=== PATIENT | male | born 1970 | race African-American/Black ===

== ENCOUNTER 2020-04-09 08:00 | Inpatient (IN) | payer OTHER ==
--- OUTSIDE RECORDS SUMMARY | 2020-04-09 08:26 | XMS ---
:1970 Author Organization [facility] Support Name Relationship Address Phone UE Unavailable Unavailable Unavailable ERNESTINA TESFAYE [address] [address] [phone] [place] [address] Re-disclosure Warning The records that you are about to access may contain information from federally- assisted alcohol or drug abuse programs. If such information is present, then the following federally mandated warning applies: This information has been disclosed to you from records protected by federal confidentiality rules (42 CFR part 2). The federal rules prohibit you from making any further disclosure of this information unless further disclosure is expressly permitted by the written consent of the person to whom it pertains or as otherwise permitted by 42 CFR part 2. A general authorization for the release of medical or other information is NOT sufficient for this purpose. The Federal rules restrict any use of the information to criminally investigate or prosecute any alcohol or drug abuse patient.The records that you are about to access may contain highly sensitive health information, the redisclosure of which is protected by Article 27-F of the [facility] Public Health law. If you continue you may haveaccess to information: Regarding HIV / AIDS; Provided by facilities licensed or operated by the [facility] Office of Mental Health; or Provided by the [facility] Office for People With Developmental Disabilities. If such information is present, then the following [facility] mandated warning applies: This information has been disclosed to you from confidential records which are protected by state law. State law prohibits you from making any further disclosure of this information without the specific written consent of the person to whom it pertains, or as otherwise permitted by law. Any unauthorized further disclosure in violation of state law may result in a fine or shelter sentence or both. A general authorization for the release of medical or other information is NOT sufficient authorization for further disclosure. Insurance Providers Payer name Policy type Policy ID Covered Covered green party's Policy P margarita / Coverage green party ID relationship to [employer] ormation type k[employer] MVP [place] [id number] [place] [id number] HMO Dental [id number] S [id number] E-0 [employer] MKD [place] [id number] S [id number] 200 Vision MKD [facility] [id number] S [id number] Options MKD Medicaid [id number] S [id number] Regular Clinic Visit [facility] Medicaid [id number] S [id number] Managed Care Problems, Conditions, and Diagnoses Code Display Name Description Problem Type Effective Dates Data Source(s) F33.8 Other recurrent Other recurrent Diagnosis 09/18/2018 [place] ([place] depressive depressive 03:40:36 PM EST Xavi disorders disorders [facility])
[2020-04-09] MEDS ORDERED: morphine CARPU-JECT 4 MG/1 ML DISP.SYRIN IVPUSH ONE (08:59)
[2020-04-09] MEDS ORDERED: FAMOTIDINE 20 MG/50 ML IVPB 20 MG/50 ML MG IVPB ONE ×2 (08:59→09:16)
[2020-04-09] MEDS ORDERED: MAG HYDROX/AL HYDROX/SIMETH -MYLANTA- ORAL SUSPENSION PO ONE (08:59)
[2020-04-09] MEDS ORDERED: LIDOCAINE VISCOUS 2% ORAL/TOP 20 ML UNIT-DOSE CUP MM ONE (08:59)
--- NOTE | 2020-04-09 09:00 | PDOC ---
History of Present Illness - General Chief Complaint: Pain Stated Complaint: ABDOMINAL PAIN Time Seen by Provider: 04/09/20 08:50 - History of Present Illness Initial Comments: Deric Ahumada is a 49 y/o male with no reported PMH presenting today with abdominal pain. States that his abdominal pain started at midnight yesterday when he was on the couch watching TV and drinking a beer. Reports that the pain is sharp and worse in the epigastric area. No pain radiation. Vomited x1 yesterday NBNB. Reports mild constipation. No diarrhea/hematochezia. No hematuria/dysuria. No fever/chills. No chest pain/shortness of breath. No leg swelling. No back pain. SurgHx: none SocHx: drinks 40 oz ETOH qd, smokes daily, snorts cocaine every few weeks Past History - Medical History Allergies/Adverse Reactions: Allergies Allergy/AdvReac Type Severity Reaction Status Date / Time No Known Allergies Allergy Verified 04/09/20 08:11 Home Medications: Ambulatory Orders NK [No Known Home Medication] 04/09/20 Anemia: No Asthma: No Cancer: No Cardiac Disorders: Yes ("irregular heart rate") CVA: No COPD: No CHF: No Dementia: No Diabetes: No GI Disorders: No Disorders: No HTN: No Hypercholesterolemia: No Liver Disease: No Seizures: No Thyroid Disease: No - Psycho-Social/Smoking History Smoking History: Never smoked Have you smoked in the past 12 months: Yes Number of Cigarettes Smoked Daily: 20 Review of Systems - Review of Systems Comments:: GENERAL/CONSTITUTIONAL: No fever or chills. No weakness._ HEAD, EYES, EARS, NOSE AND THROAT: No change in vision. No change in hearing. No sore throat._ CARDIOVASCULAR: No chest pain or shortness of breath_ RESPIRATORY: Denies cough, hemoptysis_ GASTROINTESTINAL: +epigastric abdominal pain. +nausea/vomiting x1. +con stipation. GENITOURINARY: No dysuria, frequency, or change in urination._ MUSCULOSKELETAL: No joint or muscle swelling or pain. No neck or back pain._ SKIN: No rash_ NEUROLOGIC: No headache, vertigo, loss of consciousness, or change in strength/sensation._ ENDOCRINE: No increased thirst. No abnormal weight change_ HEMATOLOGIC/LYMPHATIC: No anemia, easy bleeding, or history of blood clots._ ALLERGIC/IMMUNOLOGIC: No hives or skin allergy._ *Physical Exam - Vital Signs Last Vital Signs Temp Pulse Resp BP Pulse Ox 97.8 F 16 L 114 H 153/95 100 04/09/20 08:13 04/09/20 08:13 04/09/20 08:13 04/09/20 08:13 04/09/20 08:13 - Physical Exam GENERAL: Awake, alert, and oriented to person/place/time, in no acute distress_ HEAD: No signs of trauma, normocephalic, atraumatic _ EYES: PERRLA, EOMI, sclera anicteric, conjunctiva clear_ ENT: Hearing grossly normal, nares patent, oropharynx clear without exudates. No uvular deviation. Moist mucosa_ NECK: Normal ROM, supple, no lymphadenopathy, JVD, or masses_ LUNGS: No distress, speaks in full sentences, clear to auscultation bilaterally _ HEART: Regular rate and rhythm, normal S1 and S2, no murmurs appreciated, peripheral pulses normal and equal bilaterally._ ABDOMEN: Soft, epigastric TTP, rigid. No rebound. No masses. EXTREMITIES: Normal inspection, Normal range of motion, no edema. No clubbing or cyanosis_ NEUROLOGICAL: Cranial nerves II through XII grossly intact. Normal speech, normal gait, no focal sensorimotor deficits _ SKIN: Warm, Dry, normal turgor, no rashes or lesions noted_ ED Treatment Course - LABORATORY CBC & Chemistry Diagram: 04/09/20 09:00 04/09/20 09:00 - RADIOLOGY Radiology Studies Ordered: Category Date Time Status ABDOMEN & PELVIS CT WITH CONTR [CT] Stat CT Scan 04/09/20 08:56 Ordered CHEST X-RAY PORTABLE* [RAD] Stat Radiology 04/09/20 08:56 Ordered Medical Decision Making - Medical Decision Making 04/09/20 08:59 49M with no reported PMH here for abdominal pain over the past day and a half. +etoh, +smoking, +snorted cocaine. Vomiting x1. No fever/chills. DDx includes pancreatitis vs gastritis vs cholecystitis. -cbc, cmp -ekg, trop, cxr -CT abd iv contrast -lactic -lipase -morphine -GI cocktail 04/09/20 09:47 CXR shows free air under the diaphragm. No other acute intrathoracic pathology. 04/09/20 11:27 Call received from radiology. CT abd pelv shows pneumoperitoneum and mild free fluid in the RUQ and pelvis. No obvious source, no signs of bowel obstruction. Labs reviewed. Laboratory Last Values WBC 22.1 K/mm3 (4.0-10.0) H 04/09/20 09:00 RBC 5.68 M/mm3 (4.00-5.60) H 04/09/20 09:00 Hgb 15.6 GM/dL (11.7-16.9) 04/09/20 09:00 Hct 47.1 % (35.4-49) 04/09/20 09:00 MCV 82.9 fl (80-96) 04/09/20 09:00 MCH 27.4 pg (25.7-33.7) 04/09/20 09:00 MCHC 33.1 g/dl (32.0-35.9) 04/09/20 09:00 RDW 15.2 % (11.9-15.9) 04/09/20 09:00 Plt Count 373 K/MM3 (134-434) 04/09/20 09:00 MPV 7.3 fl (7.5-11.1) L 04/09/20 09:00 Absolute Neuts (auto) 19.8 K/mm3 (1.5-8.0) H 04/09/20 09:00 Neutrophils % 89.8 % (42.8-82.8) H 04/09/20 09:00 Lymphocytes % 4.7 % (8-40) L 04/09/20 09:00 Monocytes % 5.2 % (3.8-10.2) 04/09/20 09:00 Eosinophils % 0.1 % (0-4.5) 04/09/20 09:00 Basophils % 0.2 % (0-2.0) 04/09/20 09:00 Nucleated RBC % 0 % (0-0) 04/09/20 09:00 PT with INR 19.20 SEC (9.7-13.0) H 04/09/20 09:00 INR 1.62 (0.83-1.09) H 04/09/20 09:00 PTT (Actin FS) 35.1 SECONDS (25.2-36.5) 04/09/20 09:00 Sodium 134 mmol/L (136-145) L 04/09/20 09:00 Potassium 4.5 mmol/L (3.5-5.1) 04/09/20 09:00 Chloride 102 mmol/L (98-107) 04/09/20 09:00 Carbon Dioxide 25 mmol/L (21-32) 04/09/20 09:00 Anion Gap 8 MMOL/L (8-16) 04/09/20 09:00 BUN 12.6 mg/dL (7-18) 04/09/20 09:00 Creatinine 0.9 mg/dL (0.55-1.3) 04/09/20 09:00 Est GFR (CKD-EPI)AfAm 114.21 04/09/20 09:00 Est GFR (CKD-EPI)NonAf 98.54 04/09/20 09:00 Random Glucose 114 mg/dL (74-106) H 04/09/20 09:00 Lactic Acid 1.2 mmol/L (0.4-2.0) 04/09/20 09:00 Calcium 9.7 mg/dL (8.5-10.1) 04/09/20 09:00 Total Bilirubin 0.5 mg/dL (0.2-1) 04/09/20 09:00 AST 13 U/L (15-37) L 04/09/20 09:00 ALT 14 U/L (13-61) 04/09/20 09:00 Alkaline Phosphatase 90 U/L (45-117) 04/09/20 09:00 Creatine Kinase 95 U/L (26-308) 04/09/20 09:00 Troponin I < 0.02 ng/ml (0.00-0.05) 04/09/20 09:00 Total Protein 6.7 g/dl (6.4-8.2) 04/09/20 09:00 Albumin 3.4 g/dl (3.4-5.0) 04/09/20 09:00 Lipase 89 U/L (73-393) 04/09/20 09:00 04/09/20 11:35 Case d/w Dr. Rodriguez. CT abd shows small bowel obstruction vs ileus. 04/09/20 11:42 Case d/w Dr. Young who will take the pt to the OR today. 04/09/20 11:[address] May. Voice mailbox is full, no answering service available. Will admit to hospitalist. 04/09/20 11:57 Case d/w Dr. Tadeo who accepts the patient for admission. Discharge - Discharge Information Problems reviewed: Yes Clinical Impression/Diagnosis: Pneumoperitoneum Condition: Guarded - Admission Yes - Follow up/Referral - Patient Discharge Instructions - Post Discharge Activity
[2020-04-09] MEDS ORDERED: LACTATED RINGERS SOLUTION 1000 ML INFUS.BAG IV ONE (09:06)
[2020-04-09] MEDS ORDERED: morphine SULFATE 4 MG/ML VIAL ONE (09:15)
[2020-04-09] MEDS ORDERED: LIDOCAINE VISCOUS 2% ORAL/TOP 20 ML UNIT-DOSE CUP ONE (09:15)
[2020-04-09] MEDS ORDERED: MAG HYDROX/AL HYDROX/SIMETH 30 ML UNIT-DOSE CUP ONE (09:16)
[2020-04-09 09:35] LABS: INR 1.62 (0.83-1.09); PROTHROMBIN TIME (PATIENT) 19.2 SEC (9.7-13.0)
[2020-04-09 09:38] LABS: ACTIVATED PTT 35.1 SECONDS (25.2-36.5)
[2020-04-09 09:45] LABS: BASO % 0.2 % (0-2.0); EOS % 0.1 % (0-4.5); HEMATOCRIT 47.1 % (35.4-49); HEMOGLOBIN 15.6 GM/dL (11.7-16.9); LYMPH % 4.7 % (8-40); MCH 27.4 pg (25.7-33.7); MCHC 33.1 g/dl (32.0-35.9); MEAN CELL VOLUME 82.9 fl (80-96); MEAN PLT VOLUME 7.3 fl (7.5-11.1); MONO % 5.2 % (3.8-10.2); NEUT % 89.8 % (42.8-82.8); PLATELET COUNT 373 K/MM3 (134-434); RBC 5.68 M/mm3 (4.00-5.60); RDW 15.2 % (11.9-15.9); WHITE BLOOD COUNT 22.1 K/mm3 (4.0-10.0)
[2020-04-09] MEDS ORDERED: PIPERACILLIN/TAZOB 3.375 GM 3.375 GM in DEXTROSE 5%-WATER - 50 ML IVPB ONE (09:48)
[2020-04-09 10:06] LABS: ALBUMIN 3.4 g/dl (3.4-5.0); ALK PHOS 90 U/L (45-117); ANION GAP 8 MMOL/L (8-16); BILIRUBIN,TOTAL 0.5 mg/dL (0.2-1); BLOOD UREA NITROGEN 12.6 mg/dL (7-18); CALCIUM 9.7 mg/dL (8.5-10.1); CHLORIDE 102 mmol/L (98-107); CO2 25 mmol/L (21-32); CREATININE 0.9 mg/dL (0.55-1.3); GLUCOSE,RANDOM 114 mg/dL (74-106); LIPASE 89 U/L (73-393); POTASSIUM 4.5 mmol/L (3.5-5.1); SGOT/AST 13 U/L (15-37); SGPT/ALT 14 U/L (13-61); SODIUM 134 mmol/L (136-145); TOT PROT 6.7 g/dl (6.4-8.2)
[2020-04-09] MEDS ORDERED: PIPERACILLIN/TAZOB 3.375 GM 3.375 GM/50 ML BAG IVPB ONE (11:35)
--- NOTE | 2020-04-09 11:45 | PDOC ---
Documentation entered by Mckenna Veliz SCRIBE, acting as scribe for Kimberly Camarena MD. Kimberly Camarena MD: This documentation has been prepared by the scribe, Mckenna Veliz SCRIBE, under my direction and personally reviewed by me in its entirety. I confirm that the documentation accurately reflects all work, treatment, procedures, and medical decision making performed by me. Attending Attestation - Resident Resident Name: John Ojeda - ED Attending Attestation I have performed the following: I have examined & evaluated the patient, The case was reviewed & discussed with the resident, I agree w/resident's findings & plan, Exceptions are as noted - HPI HPI: 49 year old male history of EtOH use presents with epigastric abdominal pain. He states it started last night, kept him awake all night. He states he was drinking a beer when it started. No known prior history of GERD. Denies prior symptoms of heartburn or pain with eating/drinking. No prior similar symptoms. +N/V. No diarrhea. Denies f/c. Patient denies: Allergies: NKDA - Physicial Exam PE: GENERAL: Awake, alert, and fully oriented. Appears uncomfortable. HEAD: No signs of trauma EYES: PERRLA, EOMI, sclera anicteric, conjunctiva clear ENT: Auricles normal inspection, hearing grossly normal, nares patent, oropharynx clear without exudates. Dry mucosa NECK: Normal ROM, supple, no lymphadenopathy, JVD, or masses LUNGS: Breath sounds equal, clear to auscultation bilaterally. No wheezes, and no crackles HEART: Regular rate and rhythm, normal S1 and S2, no murmurs, rubs or gallops ABDOMEN: Firm, diffusely tender, +hyperactive bowel sounds. +Guarding, +rebound. No masses EXTREMITIES: Normal range of motion, no edema. No clubbing or cyanosis. No cords, erythema, or tenderness NEUROLOGICAL: Cranial nerves II through XII grossly intact. Normal speech, normal gait SKIN: Warm, Dry, normal turgor, no rashes or lesions noted. - Medical Decision Making 04/09/20 11:42 Late entry. Patient presented with epigastric abd pain that started while drinking a beer. Abd exam significant for diffuse tenderness with peritoneal signs. Found to have free air on CXR. Treated with zosyn for perf, sent to CT for emergent noncontrast scan to further evaluate. CT showed pneumoperitoneum, poss SBO vs ileus as well. Surgery consulted. Discharge - Discharge Information Problems reviewed: Yes Clinical Impression/Diagnosis: Pneumoperitoneum Condition: Guarded - Follow up/Referral Referrals: Raheem May MD [Primary Care Provider] - - Patient Discharge Instructions - Post Discharge Activity
--- OUTSIDE RECORDS SUMMARY | 2020-04-09 12:10 | XMS ---
:1970 Author Organization [facility] Support Name Relationship Address Phone UE, UNEMPLOYED Unavailable Unavailable Unavailable UE Unavailable Unavailable Unavailable ERNESTINA TESFAYE [address] [place] [address] Re-disclosure Warning The records that you are [...] is protected by Article 27-F of the [facility] Public Health law. If you continue you may haveaccess to information: Regarding HIV / AIDS; Provided by facilities licensed or operated by the [facility] Office of Mental Health; or Provided by the [facility] Office for People With Developmental Disabilities. If such information is present, then the following [facility] mandated warning applies: This information has [...] law may result in a fine or custodial sentence or both. A general authorization for the release of medical or other information is NOT sufficient authorization for further disclosure. Insurance Providers Payer name Policy type Policy ID Covered Covered republican's Policy P margarita / Coverage republican ID relationship to [employer] Inf ormation type k[employer]ball MVP MEDICAID [id number] SP [id number] HMO Dental [id number] S [id number] E-0 [employer] MKD [place] [id number] S [id number] 200 Vision MKD [facility] [id number] S [id number] Options MKD Medicaid [id number] [id number] S [id number] Regular Clinic Visit [facility] Medicaid [id number] S [id number] Managed Care Problems, Conditions, and Diagnoses Code Display Name Description Problem Type Effective Dates Data Source(s) F33.8 Other recurrent Other recurrent Diagnosis 09/18/2018 [place] ([place] depressive depressive 03:40:36 PM EST Xavi disorders disorders [facility])
--- NOTE | 2020-04-09 12:24 | HP ---
CHIEF COMPLAINT: Abd pain/distention PCP: Dr. Raheem May HISTORY OF PRESENT ILLNESS: 49yo M with substance use who presents today after 2 days of abdominal pain described as generalized nonremitting pain. He reports 2 days prior to presentation he had sudden onset of distention and abdominal pain which worsened over the last two days. At the time he had one beer and was smoking marijuana, but the night prior he had used cocaine (snorting). He occasionally uses cocaine and his last use was at that time. Patient also endorses having diaphoresis last night, but did not have any rigors or chills and he reports one episode of NB/NB emesis. Denies any known fevers, cough, SOB, chest pain, palpitations, nausea, current vomiting, diarrhea/constipation, dysuria, polyuria. PAST MEDICAL HISTORY: None Known PAST SURGICAL HISTORY: Vasectomy Social History: Smoking: with marijuana use Alcohol: 1-2 beers /wk Drugs: Marijuana use every other day, cocaine use occasionally FamHx: Noncontributory Allergies No Known Allergies Allergy (Verified 04/09/20 08:11) HOME MEDICATIONS: Home Medications Medication Instructions Recorded (None) 0 08/14/11 REVIEW OF SYSTEMS As per [facility] PHYSICAL EXAMINATION Vital Signs - 24 hr 04/09/20 04/09/20 08:13 12:06 Temperature 97.8 F Pulse Rate 114 H Pulse Rate [ 84 Right] Respiratory 16 18 Rate Blood Pressure 153/95 Blood Pressure 151/84 [Left Arm] O2 Sat by Pulse 100 100 Oximetry (%) GENERAL: Awake, alert, and fully oriented, in no acute distress. HEENT: NC/AT, MARK, L eye amblyopia, EOMI without nystagmus, MMM NECK: No JVD. LUNGS: Respiratory splinting, CTA bilaterally. No wheezes, and no crackles. No accessory muscle use. On RA HEART: Tachycardic with regular rhythm, normal S1 and S2 without murmur ABDOMEN: Firm, nondistended, minimal generalized tenderness, - BS, + guarding, no rebound, no masses appreciated, no hepatomegaly. EXTREMITIES: 2+ pulses, warm, well-perfused. No calf tenderness. No peripheral edema. NEUROLOGICAL: echocardiography radiology technologist II-XII intact. Nonfocal exam Normal speech. PSYCHIATRIC: Cooperative. Good eye contact. Appropriate mood and affect. SKIN: Warm, dry,no rashes or lesions noted Laboratory Results - last 24 hr 04/09/20 04/09/20 04/09/20 09:00 09:00 09:00 WBC 22.1 H RBC 5.68 H Hgb 15.6 Hct 47.1 MCV 82.9 MCH 27.4 MCHC 33.1 RDW 15.2 Plt Count 373 MPV 7.3 L Absolute Neuts (auto) 19.8 H Neutrophils % 89.8 H Lymphocytes % 4.7 L Monocytes % 5.2 Eosinophils % 0.1 Basophils % 0.2 Nucleated RBC % 0 PT with INR 19.20 H INR 1.62 H PTT (Actin FS) 35.1 Sodium 134 L Potassium 4.5 Chloride 102 Carbon Dioxide 25 Anion Gap 8 BUN 12.6 Creatinine 0.9 Est GFR (CKD-EPI)AfAm 114.21 Est GFR (CKD-EPI)NonAf 98.54 Random Glucose 114 H Lactic Acid Calcium 9.7 Total Bilirubin 0.5 AST 13 L ALT 14 Alkaline Phosphatase 90 Creatine Kinase 95 Troponin I < 0.02 Total Protein 6.7 Albumin 3.4 Lipase 89 04/09/20 09:00 WBC RBC Hgb Hct MCV MCH MCHC RDW Plt Count MPV Absolute Neuts (auto) Neutrophils % Lymphocytes % Monocytes % Eosinophils % Basophils % Nucleated RBC % PT with INR INR PTT (Actin FS) Sodium Potassium Chloride Carbon Dioxide Anion Gap BUN Creatinine Est GFR (CKD-EPI)AfAm Est GFR (CKD-EPI)NonAf Random Glucose Lactic Acid 1.2 Calcium Total Bilirubin AST ALT Alkaline Phosphatase Creatine Kinase Troponin I Total Protein Albumin Lipase ASSESSMENT/PLAN: Bowel Perforation likely 2/2 cocaine mesenteric ischemia Leukocytosis Polysubstance Use --General surgery consulted in ED: to be taken to the OR shortly --Due to emergent surgery patient is to go to OR regardless --Based on pt's history he is low risk patient for mod risk surgery (ex-lap) --Zosyn 3.375gm q8h IV for gram negative and anaerobic coverage --LR @100cc/hr --Strict NPO --Tylenol and Morphine PRN --Rest per surgical recommendations --Will need incentive spirometer after OR procedure --Gilliland insertion due minimal distention and perioperative use --UA and UTox to be collected --Counselling on cessation of cocaine and marijuana use --Monitor for any withdrawal signs (low risk considering single use occasionally) DVT PPX - SCDs Dispo: M/S pending teto-operative course Preston Tadeo DO - IM Family Medical History Family History: As Documented Visit type - Emergency Visit Emergency Visit: Yes ED Registration Date: 04/09/20 Care time: The patient presented to the Emergency Department on the above date and was hospitalized for further evaluation of their emergent condition. - New Patient This patient is new to me today: Yes Date on this admission: 04/09/20 - Critical Care Critical Care patient: No
[2020-04-09] MEDS ORDERED: morphine SULFATE 4 MG/ML VIAL IVPUSH PRN (12:26)
[2020-04-09] MEDS ORDERED: ACETAMINOPHEN 1000 MG/100 ML VIAL (NON FORMULARY) IVPB PRN (12:26)
[2020-04-09] MEDS ORDERED: LACTATED RINGERS SOLUTION 1,000 ML/1,000 ML INFUS.BAG IV SCH (12:30)
[2020-04-09 13:14] LABS: ANISOCYTOSIS 0; MACROCYTOSIS 0; PLATELET ESTIMATE NORMAL
[2020-04-09 13:21] LABS: METHADONE, UR NEGATIVE ng/ml (CUTOFF=300); PHENCYCLIDINE,URINE NEGATIVE ng/ml (CUTOFF=25); URINE AMPHETAMINES NEGATIVE ng/ml (CUTOFF=500); URINE BARBITURATES NEGATIVE ng/ml (CUTOFF=200); URINE BENZODIAZEPINES NEGATIVE ng/ml (CUTOFF=200)
[2020-04-09 13:24] LABS: COCAINE, UR POSITIVE ng/ml (CUTOFF=300); OPIATES, URI POSITIVE ng/ml (CUTOFF=300)
[2020-04-09 13:41] LABS: URINE APPEARANCE CLEAR; URINE BILIRUBIN NEGATIVE (NEGATIVE); URINE COLOR YELLOW; URINE GLUCOSE (UA) NEGATIVE (NEGATIVE); URINE KETONE NEGATIVE (NEGATIVE); URINE LEUK ESTERASE NEGATIVE (NEGATIVE); URINE NITRITE NEGATIVE (NEGATIVE); URINE PROTEIN TRACE (NEGATIVE); URINE UROBILINOGEN 0.2 mg/dL (0.2-1.0)
--- NOTE | 2020-04-09 13:57 | PN ---
Progress Note (short form) - Note Progress Note: surgery 49m with perforated viscous and ascites on ct. Has tachycardia and leukocytosis with a shift. suspect PUD. Rapid covid test done and covid negative. Emergency surgery has been booked. Awaiting OR availabity. Currently emergent case scheduled in front and no second team available per nursing die cast supervisor.
[2020-04-09] MEDS ORDERED: ONDANSETRON 4 MG/2 ML VIAL IVPUSH PRN ×2 (14:40→18:50)
[2020-04-09] MEDS ORDERED: PROMETHAZINE HCL 25 MG/1 ML VIAL IVPUSH PRN (14:40)
[2020-04-09] MEDS ORDERED: LACTATED RINGERS SOLUTION 1,000 ML IV SCH (14:45)
[2020-04-09] MEDS ORDERED: fentaNYL CITRATE 250 MCG/5 ML VIAL ONE (16:25)
[2020-04-09] MEDS ORDERED: ONDANSETRON 4 MG/2 ML VIAL ONE (16:25)
[2020-04-09] MEDS ORDERED: MIDAZOLAM HCL 2 MG/2 ML SINGLE DOSE VIAL ONE (16:25)
[2020-04-09] MEDS ORDERED: DEXAMETHASONE SOD PHOSPHATE 4 MG/1 ML VIAL ONE (16:25)
[2020-04-09] MEDS ORDERED: PROPOFOL 20 ML ONE ×2 (16:25→18:30)
[2020-04-09] MEDS ORDERED: ROCURONIUM BROMIDE 50 MG/5 ML SYRINGE ONE (16:25)
[2020-04-09] MEDS ORDERED: LIDOCAINE HCL/PF 2% SDV 5ML VIAL ONE (16:25)
[2020-04-09] MEDS ORDERED: PIPERACILLIN/TAZOB 3.375 GM 3.375 GM in DEXTROSE 5%-WATER - 50 ML IVPB SCH (18:00)
[2020-04-09] MEDS ORDERED: BUPIVACAINE HCL 50 ML ONE (18:15)
[2020-04-09] MEDS ORDERED: NEOSTIGMINE METHYLSULFATE 0.5 MG/1 ML - 10 ML MDV ONE (18:21)
[2020-04-09] MEDS ORDERED: GLYCOPYRROLATE 0.2 MG/1 ML VIAL ONE (18:21)
[2020-04-09] MEDS ORDERED: BUPIVACAINE HCL/PF 0.5% (5 MG/ML) 30 ML VIAL IJ ONE (18:31)
[2020-04-09] MEDS ORDERED: morphine SULFATE 4 MG/ML VIAL IVPB PRN (18:50)
--- NOTE | 2020-04-09 18:59 | OP ---
Operative Note - Note: Operative Date: 04/09/20 Pre-Operative Diagnosis: perforated viscous Operation: exploratory laparotomy, vern patch procedure of perforated ulcer, drainage of ascites, lavage Findings: perforated ulcer at anterior pylorus/duodenal bulb, ascites with exudate Post-Operative Diagnosis: Same as Pre-op Surgeon: Preston Young Anesthesiologist/CORK PAINTER AND GRADER: Dusty Wright Anesthesia: General Specimens Removed: peritoneal fluid for culture and grahm stain Estimated Blood Loss (mls): 50 Drains & Tubes with Location: rajiv abd Operative Report Dictated: Yes
[2020-04-09] MEDS ORDERED: FLUCONAZOLE 200 MG/D5W 100 ML IVPB SCH (19:00)
[2020-04-09] MEDS ORDERED: D5-1/2NS+20 MEQ KCL - 20 MEQ/1,000 ML INFUS.BAG IV SCH (19:00)
[2020-04-09] MEDS: ACETAMINOPHEN 1000 MG/100 ML VIAL (NON FORMULARY) IVPB PRN (19:10)
[2020-04-09] MEDS ORDERED: ACETAMINOPHEN INJECTION 100 ML IVPB ONE (19:17)
[2020-04-09] MEDS: PANTOPRAZOLE SODIUM 80 MG in SODIUM CHLORIDE 100 ML IVPB SCH (19:40)
--- NOTE | 2020-04-09 21:57 | CONSULT ---
Consult Consult Specialty:: PULM/CCM Referred by:: Dr. Tadeo Reason for Consultation:: Post op management - History of Present Illness Chief Complaint: abdominal pain History of Present Illness: 49yo M with substance use who presents to the hospital on 04/09 after 2 days of abdominal pain described as generalized nonremitting pain. He reports 2 days prior to presentation he had sudden onset of distention and abdominal pain which worsened over the last two days. At the time he had one beer and was smoking marijuana, but the night prior he had used cocaine (snorting). Patient also endorses having diaphoresis last night, but did not have any rigors or chills and he reports one episode of NB/NB emesis. Now admitted to ICU s/p OR with Dr. Christie for exploratory laparotomy, vern patch procedure of perforated ulcer, drainage of ascites, lavage. - History Source History Provided By: Patient Limitations to Obtaining History: No Limitations - Alcohol/Substance Use Hx Alcohol Use: Yes (reformed for 2 yrs) History of Substance Use: reports: Cocaine, Marijuana - Smoking History Smoking history: Never smoked Have you smoked in the past 12 months: Yes Aproximately how many cigarettes per day: 20 Home Medications - Allergies Allergies/Adverse Reactions: Allergies Allergy/AdvReac Type Severity Reaction Status Date / Time No Known Allergies Allergy Verified 04/09/20 08:11 - Home Medications Home Medications: Ambulatory Orders NK [No Known Home Medication] 04/09/20 Family Medical History Family History: Denies Review of Systems - Review of Systems Constitutional: reports: No Symptoms Eyes: reports: No Symptoms HENT: reports: No Symptoms Neck: reports: No Symptoms Cardiovascular: reports: No Symptoms Respiratory: reports: No Symptoms Gastrointestinal: reports: Abdominal Pain Musculoskeletal: reports: No Symptoms Integumentary: reports: No Symptoms Neurological: reports: No Symptoms Endocrine: reports: No Symptoms Hematology/Lymphatic: reports: No Symptoms Psychiatric: reports: No Symptoms Physical Exam Vital Signs: Vital Signs Temperature 98.9 F 04/09/20 20:25 Pulse Rate 82 04/09/20 20:25 Respiratory Rate 16 04/09/20 20:25 Blood Pressure 122/74 04/09/20 20:25 O2 Sat by Pulse Oximetry (%) 100 04/09/20 20:25 Constitutional: Yes: Well Nourished, No Distress, Calm Eyes: Yes: WNL, Conjunctiva Clear, EOM Intact HENT: Yes: WNL, Atraumatic, Normocephalic Neck: Yes: WNL, Supple, Trachea Midline Cardiovascular: Yes: WNL, Regular Rate and Rhythm, S1, S2 Respiratory: Yes: WNL, Regular, CTA Bilaterally Gastrointestinal: Yes: Tenderness, Other (absent BS) ...Rectal Exam: Yes: Deferred Renal/: Yes: WNL (Gilliland present), Other Breast(s): Yes: WNL Musculoskeletal: Yes: WNL Extremities: Yes: WNL Edema: No Integumentary: Yes: WNL Wound/Incision: Yes: Clean/Dry, Well Approximated, [place] Intact Neurological: Yes: WNL, Alert, Oriented ...Motor Strength: WNL Psychiatric: Yes: WNL, Alert, Oriented Labs: CBC, BMP 04/09/20 09:00 04/09/20 09:00 Imaging - Results Cat Scan: Report Reviewed (04/[address] Moderate to large pneumoperitoneum. A small to moderate amount of free fluid is noted within the pelvis and upper abdomen. Nonspecific fluid-filled small bowel dilatation is seen which could be on the basis of an ileus versus distal small bowel obstruction. Mild to moderate fluid-filled gastric distention is also seen. Mild nonspecific left hydronephrosis. Follow-up evaluation is suggested.) Problem List - Problems (1) Pneumoperitoneum Code(s): K66.8 - OTHER SPECIFIED DISORDERS OF PERITONEUM (2) Cocaine abuse Code(s): F14.10 - COCAINE ABUSE, UNCOMPLICATED (3) Hydronephrosis Code(s): N13.30 - UNSPECIFIED HYDRONEPHROSIS (4) Leukocytosis Code(s): D72.829 - ELEVATED WHITE BLOOD CELL COUNT, UNSPECIFIED (5) Leukocytosis Code(s): D72.829 - ELEVATED WHITE BLOOD CELL COUNT, UNSPECIFIED (6) Marijuana abuse Code(s): F12.10 - CANNABIS ABUSE, UNCOMPLICATED (7) Opiate dependence Code(s): F11.20 - OPIOID DEPENDENCE, UNCOMPLICATED Assessment/Plan ASSESSMENT/PLAN: Bowel Perforation likely 2/2 cocaine mesenteric ischemia Leukocytosis Polysubstance Use S/p OR -Tylenol and Morphine PRN -Zosyn 3.375gm and Flucanazole -Pantoprazole for PUD ppx -Monitor for any withdrawal signs -DVT ppx SCDs, can start Lovenox in am as per surgery -Do not remove NGT x 1 week -Strict NPO -Strict I/O -Trend and replete lytes -IVF -Keep hgb>7, Plt>10 -Incentive spirometer Dispo: Patient full code Lian Desiree ACNp [id number]
[2020-04-09] MEDS: CHLORHEXIDINE GLUCONATE 4% CLEANSER FOR DECOLONIZATION TP SCH (22:33)
[2020-04-09] MEDS: MUPIROCIN 2% TOPICAL OINTMENT FOR DECOLONIZATION NS SCH (22:33)
[2020-04-10] MEDS ORDERED: PIPERACILLIN/TAZOBACTAM 3.375 GM VIAL IVPB ONE ×3 (01:15→18:09)
[2020-04-10] MEDS ORDERED: DEXTROSE 5%-WATER - 50 ML IVPB ONE ×3 (01:16→18:09)
[2020-04-10] MEDS: PIPERACILLIN/TAZOB 3.375 GM 3.375 GM in DEXTROSE 5%-WATER - 50 ML IVPB SCH ×3 (01:58→18:20)
[2020-04-10] MEDS: PANTOPRAZOLE SODIUM 80 MG in SODIUM CHLORIDE 100 ML IVPB SCH ×2 (04:00→15:15)
[2020-04-10] MEDS: ACETAMINOPHEN 1000 MG/100 ML VIAL (NON FORMULARY) IVPB PRN (07:35)
--- NOTE | 2020-04-10 07:54 | PN ---
Progress Note (short form) - Note Progress Note: GENERAL SURGERY POD #1 No acute events per RN notes. Alert. Sitting up in bed. Wearing NC at 3L. C/o incisional tenderness. Adequate pain control w/ medications ordered. Denies n/v/f/c, CP, palpitations, SOB or LEAL. Last Vital Signs Temp Pulse Resp BP Pulse Ox 98.2 F 78 18 138/79 99 04/10/20 06:00 04/10/20 06:00 04/10/20 06:00 04/10/20 06:00 04/10/20 06:00 Output 04/09/20 04/10/20 23:00 06:00 RLQ JOSE 15 10 Pelletier 700 700 GEN: nad PULM: unlabored respirations on room air COR: rrr ABD: midline incision w/ héctor intact. (covered w/ dermabond) : pelletier to gravity (clear) LE: SCDs in place. All compartments soft/supple/nt A/P: 49 yo male POD #1 s/p exploratory laparotomy, vern patch procedure of perforated ulcer, drainage of ascites, lavage -Strict NPO -NGT to remain for 1 week -JOSE to remain for 1 week -Protonix drip -Cont Diflucan -Cont Zosyn IVPB -DVT PPx -DC pelletier and begin trial of void Above plan discussed w/ Dr. Young and agrees. Problem List - Problems (1) Perforated chronic gastric ulcer Code(s): K25.5 - CHRONIC OR UNSPECIFIED GASTRIC ULCER WITH PERFORATION (2) Cocaine abuse Code(s): F14.10 - COCAINE ABUSE, UNCOMPLICATED (3) Marijuana abuse Code(s): F12.10 - CANNABIS ABUSE, UNCOMPLICATED
[2020-04-10 08:01] LABS: HEMATOCRIT 38.6 % (35.4-49); HEMOGLOBIN 12.8 GM/dL (11.7-16.9); MCHC 33.3 g/dl (32.0-35.9); MEAN CELL VOLUME 84.1 fl (80-96); MEAN PLT VOLUME 7.5 fl (7.5-11.1); PLATELET COUNT 284 K/MM3 (134-434); RBC 4.59 M/mm3 (4.00-5.60); WHITE BLOOD COUNT 20.3 K/mm3 (4.0-10.0)
--- NOTE | 2020-04-10 08:30 | CONS ---
DATE OF CONSULTATION: 04/09/2020 REASON FOR CONSULTATION: Perforated viscus. This is an emergency room consultation as requested by the emergency room physician. BRIEF HISTORY: This is a 49-year-old male who presented to [facility] with abdominal pain. He was noted to have tachycardia, leukocytosis and an x-ray suggestive of free air. He went for a CAT scan of his abdomen and pelvis which confirmed free air as well as ascites. There was no obvious source of the perforation elucidated on the CAT scan. The patient was admitted to the hospital. He got a dose of Zosyn antibiotic. At my request a rapid COVID test was sent and plans for surgery to be made once the results were available. PAST MEDICAL HISTORY: Negative except for substance abuse. PAST SURGICAL HISTORY: Includes a vasectomy. SOCIAL HISTORY: Positive for cocaine, opiates, marijuana and alcohol. FAMILY HISTORY: Noncontributory. ALLERGIES: He has no known drug allergies. MEDICATIONS: He takes no prescribed medications. REVIEW OF SYSTEMS: General: Denies fatigue. Cardiac: Denies chest pain. Respiratory: Denies shortness of breath. Gastrointestinal: Admits to abdominal pain. Denies nausea. Denies vomiting. Denies diarrhea. Denies blood in his stool. Genitourinary: Denies dysuria. Musculoskeletal: Denies joint pain. Psychiatric: Denies hearing voices. PHYSICAL EXAMINATION: General: This is a well-developed, well-nourished 49-year-old male in no distress. Vital Signs: He is afebrile. His heart rate is 114. His blood pressure is 140/98. His respiratory rate is 18. He is saturating at 96%. HEENT: His head is normocephalic. His sclerae are anicteric. Neck: Supple. Chest: Clear. Abdomen: Distended. It has 4-quadrant peritonitis. There is a ventral hernia in the central portion of his abdomen which is reducible. Extremities: No edema. On review of his laboratories white blood cell count is 22.1 with a left shift. His chemistries show hyponatremia with sodium of 134. His lactic acid is normal at 1.2. His urinalysis is unremarkable. His toxicology report is positive for opiates, cocaine and marijuana. His COVID test is negative. On review of his imaging he has a chest x-ray which shows pneumoperitoneum. He has a CAT scan of his abdomen and pelvis which is as stated in the HPI. In addition, there is possibility of ileus versus distal small-bowel obstruction and a mild left hydronephrosis. ASSESSMENT: This is a 49-year-old male who presented to [facility] with abdominal pain, perforated viscus, sepsis and 4-quadrant peritonitis. Clinically this is perforated viscus. I suspect this is likely peptic ulcer disease. Differential would be colonic perforation such as diverticulitis and less likely a small-bowel perforation. Patient has been given Zosyn antibiotic. COVID test is negative which allows us to use the normal operating theater at the hospital and also allows us to expect what type of respiratory and thromboembolic complications the patient might have intraoperatively or postoperatively. PLAN: Proceed with emergency laparotomy. This was made once the COVID test was available. Now that an operating room is available for surgery, will proceed. Plan is for a laparotomy and further treatment based on intraoperative findings. The risks and benefits of surgery have been explained to patient in detail. These are including but not limited to the possibility of injury to viscera or bladder, the possibility of requiring a colostomy, possibility of a bowel resection, the possibility of injury to the bile duct, the possibility of developing a leak, the possibility that he will require nasogastric tube for 1 week, the possibility he may require TPN plus a multitude of medical risks including but not limited to cardiac, neurologic, pulmonary and vascular complications, even . Patient understands these risks and he agrees to surgery. He also understands that even though he has tested negative for COVID that this could be a false-negative test and that if he does indeed have the virus he is at increased risk of respiratory failure and thromboembolic events and . Patient and his understand. They wish to proceed with surgery. He also understands that there is an option for medical management with antibiotics and nasogastric tube. However, they wish to proceed with the standard of care surgery which is more likely to be successful. DO ZVE SANTOS/[id number]
--- NOTE | 2020-04-10 08:31 | PN ---
Progress Note, Physician Chief Complaint: s/pp ex lap for perforated ulcer History of Present Illness: under general anesthesia post op day one - Current Medication List Current Medications: Active Medications Acetaminophen (Ofirmev Injection -) 1,000 mg IVPB Q6H PRN PRN Reason: PAIN LEVEL 4 - 6 Stop: 04/10/20 12:26 Last Admin: 04/10/20 07:35 Dose: 1,000 mg Documented by: Chlorhexidine Gluconate (Hibiclens For Decolonization -) 1 applic TP HS [facility] Last Admin: 04/09/20 22:33 Dose: 1 applic Documented by: Enoxaparin Sodium (Lovenox -) 40 mg SQ DAILY [facility] Potassium Chloride/Dextrose/Sod Cl (D5-1/2ns+20 Meq Kcl -) 20 meq in 1,000 mls @ 100 mls/hr IV ASDIR [facility] Last Admin: 04/09/20 20:06 Dose: 100 mls/hr Documented by: Pantoprazole Sodium 80 mg/ (Sodium Chloride) 100 mls @ 10 mls/hr IVPB Q10H [facility] Stop: 04/12/20 18:54 Last Admin: 04/10/20 04:00 Dose: 10 mls/hr Documented by: Piperacillin Sod/Tazobactam (Sod 3.375 gm/ Dextrose) 50 mls @ 100 mls/hr IVPB Q8H-IV ERIKA; Protocol Stop: 04/10/20 10:29 Last Admin: 04/10/20 01:58 Dose: 100 mls/hr Documented by: Piperacillin Sod/Tazobactam (Sod 3.375 gm/ Dextrose) 50 mls @ 100 mls/hr IVPB Q8H-IV ERIKA; Protocol Fluconazole (Diflucan 200 Mg/Ns Premixed Ivpb -) 100 mls @ 100 mls/hr IVPB DAILY [facility] Morphine Sulfate (Morphine Sulfate) 8 mg IVPB Q3H PRN PRN Reason: PAIN LEVEL 7 - 10 Mupirocin (Bactroban Ointment (For Decolonization) -) 1 applic NS BID [facility] Stop: 04/14/20 21:59 Last Admin: 04/09/20 22:33 Dose: 1 applic Documented by: Ondansetron HCl (Zofran Injection) 4 mg IVPUSH Q6H PRN PRN Reason: NAUSEA - Objective Vital Signs: Vital Signs Temperature 98.2 F 04/10/20 06:00 Pulse Rate 78 04/10/20 06:00 Respiratory Rate 18 04/10/20 06:00 Blood Pressure 138/79 04/10/20 06:00 O2 Sat by Pulse Oximetry (%) 99 04/10/20 06:00 Constitutional: Yes: Well Nourished Cardiovascular: Yes: WNL Respiratory: Yes: WNL Gastrointestinal: Yes: Tenderness (NGT in place) Labs: CBC, BMP 04/10/20 05:25 INR, PTT INR 1.62 (0.83-1.09) H 04/09/20 09:00 Assessment/Plan Doing well, pain controlled, no anesthetic complications, dept of anesthesiology will sign off care at this time
[2020-04-10 09:01] LABS: POTASSIUM 4.5 mmol/L (3.5-5.1)
[2020-04-10 09:13] LABS: ALBUMIN 2.3 g/dl (3.4-5.0); BILIRUBIN,TOTAL 0.6 mg/dL (0.2-1); BLOOD UREA NITROGEN 13.3 mg/dL (7-18); CALCIUM 8.3 mg/dL (8.5-10.1); CREATININE 0.9 mg/dL (0.55-1.3); MAGNESIUM 2.2 mg/dL (1.8-2.4); PHOSPHOROUS 4.1 mg/dL (2.5-4.9); TOT PROT 5.1 g/dl (6.4-8.2)
--- NOTE | 2020-04-10 09:31 | OP ---
DATE OF OPERATION: 04/09/2020 PREOPERATIVE DIAGNOSIS: Perforated viscus. POSTOPERATIVE DIAGNOSIS: Perforated viscus. PROCEDURE: Exploratory laparotomy, Rolando patch procedure of perforated peptic ulcer, drainage of ascites, lavage. SURGEON: Preston Young DO [employer] WORKER: None. ANESTHESIOLOGIST: Dusty Wright MD DRAIN: John-Clarke drain. BLOOD LOSS: Approximately 50 mL. SPECIMEN: Peritoneal fluid for culture. BRIEF HISTORY: This is a 49-year-old male with substance abuse, presented to [facility] Emergency Room with perforated viscus. He presents now for surgery. He had been tested negative for COVID and given a dose of Zosyn antibiotic. PROCEDURE: The patient was placed in the supine position. A Gilliland catheter had already been inserted. The abdomen was prepped and draped in a sterile fashion. A midline incision was made supraumbilical with scalpel used to go through the skin, subcutaneous tissue. This was approximately 5 inches in length. There was a ventral hernia below this incision which was not addressed at the time of surgery. The fascia was opened in the midline. The peritoneum was entered sharply releasing pneumoperitoneum. There was ascites with exudate in all 4 quadrants which was suctioned and irrigated. The area of the anterior duodenal bulb/pylorus was quite thick and inflamed with exudate. The lower abdomen was unable to be inspected, but it was palpated. Everything was soft and nothing appeared to be inflamed. There were no masses. Upon inspecting the anterior duodenal bulb after taking down the gastrocolic ligament, in an area of exudate there was a small perforation with bile coming out of it. A nasogastric tube was placed by the anesthesiologist, brought into the stomach just proximal to the pylorus and placed on suction. At this point the gastric ulcer was closed with 4 interrupted 0 silk sutures. Once the hole was closed, air insufflation of the stomach was done by Anesthesia under water and confirmed no leak. At this point an omental patch was fashioned with some fat from the gastrocolic ligament, placed over the area of the ties and secured with the tails of the sutures creating an omental patch. An additional piece of omentum was brought over into this area and it was stitched down to the anterior duodenum and pyloric surface as an additional layer of security. A John-Clarke drain was then placed over this area, brought out through the right midabdomen and secured with a silk drain stitch. A retrorectus block was done with 0.5% Marcaine. The midline incision was closed with a running PDS suture. The wound was irrigated, closed with héctor. Dermabond dressing was placed. Overall patient tolerated the procedure well. There were no complications. There were no masses noted during the laparotomy. However, the lower half of the abdomen was unable to be visually inspected and was only palpated. Patient's plan was to go to the intensive care unit for close monitoring. He will continue with nasogastric tube decompression for 1 week. He will need a Protonix drip in order to completely cut off the acid production in his stomach. He will need to continue his drain for at least 1 week. He will continue on Zosyn antibiotic. Fluid was sent for culture. This needs to be followed and he was started on Diflucan which could be stopped if there was no yeast present. Patient also eventually will need an upper endoscopy as an outpatient to ensure healing of the ulcer and testing for Helicobacter pylori. This was explained to the patient as well as his . At this point the patient was in the recovery room in stable condition. DO ZEV SANTOS/[id number] MTDD
--- NOTE | 2020-04-10 09:49 | PN ---
Physical Exam: SUBJECTIVE: Patient seen and examined. Pt reports feeling better, denies abdominal pain states is sore right lower quadrant around JOSE drain site. Denies chest pain, palpitations, anxiety, nervousness N/V, or headache. OBJECTIVE: This is a 49yo M with hx of substance use (cocaine and marijuana) who presented to the ED with sudden onset distention and abdominal pain. Pt states he drank 1 beer the night prior and was smoking marijuana, however 2 night prior to presentation, pt stated he snorted cocaine which he admits to doing occasionally. The pt's CT scan showed a perforation in the bowel and was taken to the OR 04/09/20 for a bowel perforated ulcer repair. Covid Status: Negative 04/09/20 CTScan Abdomen/Pelvis: Moderate to large pneumoperitoneum U Tox: + opioids, + cocaine, + marijuana Vital Signs Period Temp Pulse Resp BP Sys/Nuno Pulse Ox Last 24 Hr 97.6 F-98.9 F 66-111 12-18 122-151/74-108 95-100 GENERAL: The patient is awake, alert, and fully oriented, in no acute distress. HEAD: Normal with no signs of trauma. EYES: PERRL, + amblyopia left eye, extraocular movements intact, sclera anicteric, conjunctiva clear. No ptosis. ENT: Ears normal, nares patent, oropharynx clear without exudates, moist mucous membranes. NECK: Trachea midline, full range of motion, supple. LUNGS: Breath sounds equal, clear to auscultation bilaterally, no wheezes, no crackles, no accessory muscle use. HEART: Regular rate and rhythm, S1, S2 without murmur, rub or gallop. ABDOMEN: Soft, tender RLQ, flat, nondistended, absent bowel sounds, no guarding, no rebound. Midline incision with héctor and dermabond, clean, dry, intact. JOSE Drain RLQ, site is clean, dry, no drainage. EXTREMITIES: 2+ pulses, warm, well-perfused, no edema. NEUROLOGICAL: Normal speech, gait not observed. No tremors. PSYCH: Normal mood, normal affect. Calm, cooperative. SKIN: Warm, dry, normal turgor, no rashes or lesions noted. No piloerection. Laboratory Results - last 24 hr 04/09/20 04/09/20 04/09/20 09:00 09:00 09:00 WBC 22.1 H RBC 5.68 H Hgb 15.6 Hct 47.1 MCV 82.9 MCH 27.4 MCHC 33.1 RDW 15.2 Plt Count 373 MPV 7.3 L Absolute Neuts (auto) 19.8 H Neutrophils % 89.8 H Neutrophils % (Manual) 81.6 Band Neutrophils % 1.0 Lymphocytes % 4.7 L Lymphocytes % (Manual) 8.2 Monocytes % 5.2 Monocytes % (Manual) 6 Eosinophils % 0.1 Eosinophils % (Manual) 0.0 Basophils % 0.2 Basophils % (Manual) 0.0 Myelocytes % (Man) 0 Promyelocytes % (Man) 0 Blast Cells % (Manual) 0 Nucleated RBC % 0 Metamyelocytes 0 Hypochromia 0 Platelet Estimate Normal Polychromasia 0 Poikilocytosis 0 Anisocytosis 0 Microcytosis 0 Macrocytosis 0 Sodium 134 L Potassium 4.5 Chloride 102 Carbon Dioxide 25 Anion Gap 8 BUN 12.6 Creatinine 0.9 Est GFR (CKD-EPI)AfAm 114.21 Est GFR (CKD-EPI)NonAf 98.54 Random Glucose 114 H Lactic Acid 1.2 Calcium 9.7 Phosphorus Magnesium Total Bilirubin 0.5 AST 13 L ALT 14 Alkaline Phosphatase 90 Creatine Kinase 95 Troponin I < 0.02 Total Protein 6.7 Albumin 3.4 Lipase 89 Urine Color Urine Appearance Urine pH Ur Specific [place] Urine Protein Urine Glucose (UA) Urine Ketones Urine Blood Urine Nitrite Urine Bilirubin Urine Urobilinogen Ur Leukocyte Esterase Opiates Screen Methadone Screen Barbiturate Screen Phencyclidine Screen Ur Amphetamines Screen MDMA (Ecstasy) Screen Benzodiazepines Screen Cocaine Screen U Marijuana (THC) Screen SARS-CoV-2 (PCR) Blood Type Antibody Screen 04/09/20 04/09/20 04/09/20 11:40 11:50 12:55 WBC RBC Hgb Hct MCV MCH MCHC RDW Plt Count MPV Absolute Neuts (auto) Neutrophils % Neutrophils % (Manual) Band Neutrophils % Lymphocytes % Lymphocytes % (Manual) Monocytes % Monocytes % (Manual) Eosinophils % Eosinophils % (Manual) Basophils % Basophils % (Manual) Myelocytes % (Man) Promyelocytes % (Man) Blast Cells % (Manual) Nucleated RBC % Metamyelocytes Hypochromia Platelet Estimate Polychromasia Poikilocytosis Anisocytosis Microcytosis Macrocytosis Sodium Potassium Chloride Carbon Dioxide Anion Gap BUN Creatinine Est GFR (CKD-EPI)AfAm Est GFR (CKD-EPI)NonAf Random Glucose Lactic Acid Calcium Phosphorus Magnesium Total Bilirubin AST ALT Alkaline Phosphatase Creatine Kinase Troponin I Total Protein Albumin Lipase Urine Color Yellow Urine Appearance Clear Urine pH 6.0 Ur Specific [place] 1.008 L Urine Protein Trace Urine Glucose (UA) Negative Urine Ketones Negative Urine Blood Negative Urine Nitrite Negative Urine Bilirubin Negative Urine Urobilinogen 0.2 Ur Leukocyte Esterase Negative Opiates Screen Methadone Screen Barbiturate Screen Phencyclidine Screen Ur Amphetamines Screen MDMA (Ecstasy) Screen Benzodiazepines Screen Cocaine Screen U Marijuana (THC) Screen SARS-CoV-2 (PCR) Negative Blood Type A NEGATIVE Antibody Screen Negative 04/09/20 04/10/20 04/10/20 12:55 05:25 05:25 WBC 20.3 H RBC 4.59 Hgb 12.8 Hct 38.6 D MCV 84.1 MCH 28.0 MCHC 33.3 RDW 15.0 Plt Count 284 D MPV 7.5 Absolute Neuts (auto) Neutrophils % Neutrophils % (Manual) Band Neutrophils % Lymphocytes % Lymphocytes % (Manual) Monocytes % Monocytes % (Manual) Eosinophils % Eosinophils % (Manual) Basophils % Basophils % (Manual) Myelocytes % (Man) Promyelocytes % (Man) Blast Cells % (Manual) Nucleated RBC % Metamyelocytes Hypochromia Platelet Estimate Polychromasia Poikilocytosis Anisocytosis Microcytosis Macrocytosis Sodium 138 Potassium 4.5 Chloride 104 Carbon Dioxide 25 Anion Gap 8 BUN 13.3 Creatinine 0.9 Est GFR (CKD-EPI)AfAm 114.21 Est GFR (CKD-EPI)NonAf 98.54 Random Glucose 89 Lactic Acid Calcium 8.3 L Phosphorus 4.1 Magnesium 2.2 Total Bilirubin 0.6 AST 18 ALT 16 Alkaline Phosphatase 80 Creatine Kinase Troponin I Total Protein 5.1 L Albumin 2.3 L Lipase Urine Color Urine Appearance Urine pH Ur Specific [place] Urine Protein Urine Glucose (UA) Urine Ketones Urine Blood Urine Nitrite Urine Bilirubin Urine Urobilinogen Ur Leukocyte Esterase Opiates Screen Positive A* Methadone Screen Negative Barbiturate Screen Negative Phencyclidine Screen Negative Ur Amphetamines Screen Negative MDMA (Ecstasy) Screen Negative Benzodiazepines Screen Negative Cocaine Screen Positive A* U Marijuana (THC) Screen Positive A* SARS-CoV-2 (PCR) Blood Type Antibody Screen Active Medications Generic Name Dose Route Start Last Admin Trade Name Freq PRN Reason Stop Dose Admin Acetaminophen 1,000 mg 04/09/20 19:08 04/10/20 07:35 Ofirmev Injection - IVPB 04/10/20 12:26 1,000 mg Q6H PRN Administration PAIN LEVEL 4 - 6 Chlorhexidine Gluconate 1 applic 04/09/20 22:00 04/09/20 22:33 Hibiclens For Decolonization - TP 1 applic HS ERIKA Administration Enoxaparin Sodium 40 mg 04/10/20 10:00 Lovenox - SQ DAILY ERIKA Potassium Chloride/Dextrose/Sod Cl 20 meq in 1,000 mls @ 100 mls/hr 04/09/20 19:00 04/09/20 20:06 D5-1/2ns+20 Meq Kcl - IV 100 mls/hr ASDIR ERIKA Administration Pantoprazole Sodium 80 mg/ 100 mls @ 10 mls/hr 04/09/20 19:00 04/10/20 04:00 Sodium Chloride IVPB 04/12/20 18:54 10 mls/hr Q10H ERIKA Administration 8 MG/HR Piperacillin Sod/Tazobactam 50 mls @ 100 mls/hr 04/10/20 02:00 04/10/20 01:58 Sod 3.375 gm/ Dextrose IVPB 04/10/20 10:29 100 mls/hr Q8H-IV ERIKA Administration Protocol Piperacillin Sod/Tazobactam 50 mls @ 100 mls/hr 04/10/20 18:00 Sod 3.375 gm/ Dextrose IVPB Q8H-IV ERIKA Protocol Fluconazole 100 mls @ 100 mls/hr 04/10/20 10:00 Diflucan 200 Mg/Ns Premixed Ivpb - IVPB DAILY ERIKA Morphine Sulfate 8 mg 04/09/20 18:50 Morphine Sulfate IVPB Q3H PRN PAIN LEVEL 7 - 10 Mupirocin 1 applic 04/09/20 22:00 04/09/20 22:33 Bactroban Ointment (For Decolonization) - NS 04/14/20 21:59 1 applic BID ERIKA Administration Ondansetron HCl 4 mg 04/09/20 18:50 Zofran Injection IVPUSH Q6H PRN NAUSEA ASSESSMENT/PLAN: Problem List - Problems (1) Perforated chronic gastric ulcer Assessment/Plan: suspect related to cocaine use pt s/p perforated ulcer repair with vern patch, drainage of ascites, and lavage POD #1 TOV today, EM [place] Encourage incentive spirometry use JOSE drain in place x1 week NGT in place x1 week maintain NPO Continue Protonix Drip at 8mg/hr Code(s): K25.5 - CHRONIC OR UNSPECIFIED GASTRIC ULCER WITH PERFORATION (2) Pneumoperitoneum Assessment/Plan: same as above Code(s): K66.8 - OTHER SPECIFIED DISORDERS OF PERITONEUM (3) PVCs (premature ventricular contractions) Assessment/Plan: seen on alarm security or surveillance monitor in the ICU pt denies chest pain, palpitations continue to monitor on telemonitor Code(s): I49.3 - VENTRICULAR PREMATURE DEPOLARIZATION (4) At risk for electrolyte imbalance Assessment/Plan: NGT to stay in place x 1 week Strict NPO Electrolytes within normal limits at this time Start pt on TPN for prevent electrolyte imbalance since pt is to be NPO x1 week Nephro consulted and will start pt on TPN Insert central line Monitor electrolytes daily Code(s): Z91.89 - OT PERSONAL RISK FACTORS, NOT ELSEWHERE CLASSIFIED (5) Cocaine abuse Assessment/Plan: Utox + for cocaine Pt state he snorts cocaine occasionally Monitor COWS score daily No s/s withdrawal at this time If pt shows signs of withdrawal or worsening COWS score, may start patient on ativan protocol Code(s): F14.10 - COCAINE ABUSE, UNCOMPLICATED (6) Leukocytosis Assessment/Plan: WBC 20.3 today ID consult Continue Zosyn and Flucanazole IV Code(s): D72.829 - ELEVATED WHITE BLOOD CELL COUNT, UNSPECIFIED (7) Opiate dependence Assessment/Plan: Utox + opiates, however pt received opiates in the hospital prior to Utox collection Monitor COWS score daily Continue Morphine 8mg q3h PRN for pain as per surgery Code(s): F11.20 - OPIOID DEPENDENCE, UNCOMPLICATED (8) Marijuana abuse Problems reviewed: Yes Code(s): F12.10 - CANNABIS ABUSE, UNCOMPLICATED (9) DVT prophylaxis Assessment/Plan: Lovenox 40mg SQ DAILY FEN STRICT NPO, no meds via NG Tube, NO ice chips Clinimix at 84mLs/hr IV, Possibly start TPN Monitor electrolytes daily Code(s): Z29.9 - ENCOUNTER FOR PROPHYLACTIC MEASURES, UNSPECIFIED Visit type - Emergency Visit Emergency Visit: Yes ED Registration Date: 04/09/20 Care time: The patient presented to the Emergency Department on the above date and was hospitalized for further evaluation of their emergent condition. - New Patient This patient is new to me today: Yes Date on this admission: 04/10/20 - Critical Care Critical Care patient: Yes Total Critical Care Time (in minutes): 45 Critical Care Statement: The care of this patient involved high complexity decision making to prevent further life threatening deterioration of the patient's condition and/or to evaluate & treat vital organ system(s) failure or risk of failure. COWS - Scale Resting Pulse: 1= [place] 81-100 Sweatin= No chills or Flushing Restless Observation: 0= Sits Still Pupil Size: 0= Normal to Room Light Bone or Joint Aches: 0= None Runny Nose/ Eye Tearin= None GI Upset > 30mins: 0= None Tremor Observation: 0= None Yawning Observation: 0= None Anxiety or Irritability: 0= None Goose Flesh Skin: 0=Smooth Skin COWS Score: 1
[2020-04-10] MEDS ORDERED: PT OWN MED DRAWER 7, Y5N ONE ×3 (10:11→14:45)
[2020-04-10] MEDS: FLUCONAZOLE 200 MG/NS 100 ML IVPB SCH (10:57)
[2020-04-10] MEDS: ENOXAPARIN NA (PORCINE) 40 MG/0.4 ML DISP.SYRIN SQ SCH (10:59)
[2020-04-10] MEDS ORDERED: AMINO ACIDS 4.25%/D5W 1,000 ML IV SCH ×2 (11:00→20:15)
[2020-04-10] MEDS: MUPIROCIN 2% TOPICAL OINTMENT FOR DECOLONIZATION NS SCH ×2 (11:02→21:12)
--- NOTE | 2020-04-10 12:33 | PN ---
[facility] CIWA - CIWA Score Nausea/Vomitin-No Nausea/No Vomiting Muscle Tremors: None Anxiety: 0-No Anxiety, at Ease Agitation: 0-Normal Activity Paroxysmal Sweats: No Perspiration Orientation: 0-Oriented Tacttile Disturbances: 0-None Auditory Disturbances: 0-None Visual Disturbances: 0-None Headache: 0-None Present CIWA-Ar Total Score: 0 [facility] COWS - Scale Resting Pulse: 0= [place] 80 or Below Sweatin= No chills or Flushing Restless Observation: 0= Sits Still Pupil Size: 0= Normal to Room Light Bone or Joint Aches: 0= None Runny Nose/ Eye Tearin= None GI Upset > 30mins: 0= None Tremor Observation of Outstretched Hands: 0= None Yawning Observation: 0= None Anxiety or Irritability: 0= None Goose Flesh Skin: 0=Smooth Skin COWS Score: 0
--- NOTE | 2020-04-10 13:33 | PN ---
Teaching Attending Note Name of Resident: Venkatesh Whitehead ATTENDING PHYSICIAN STATEMENT I saw and evaluated the patient. I reviewed the resident's note and discussed the case with the resident. I agree with the resident's findings and plan as documented. SUBJECTIVE: Patient seen and examined in the ICU. Awake and alert. Improving abdominal pain overall. No CP or SOB. No flatus or BM. NGT in place. Intake & Output 04/07/20 04/08/20 04/09/20 04/10/20 23:59 23:59 23:59 23:59 Intake Total 2125 1000 Output Total 960 1015 Balance 1165 -15 Weight 165 lb 5.547 oz 165 lb 5.547 oz Last Vital Signs Temp Pulse Resp BP Pulse Ox 98.2 F 71 16 138/93 99 04/10/20 06:00 04/10/20 10:00 04/10/20 10:00 04/10/20 10:00 04/10/20 10:00 Active Medications Chlorhexidine Gluconate (Hibiclens For Decolonization -) 1 applic TP HS [facility] Last Admin: 04/09/20 22:33 Dose: 1 applic Documented by: Enoxaparin Sodium (Lovenox -) 40 mg SQ DAILY [facility] Last Admin: 04/10/20 10:59 Dose: 40 mg Documented by: Pantoprazole Sodium 80 mg/ (Sodium Chloride) 100 mls @ 10 mls/hr IVPB Q10H [facility] Stop: 04/12/20 18:54 Last Admin: 04/10/20 04:00 Dose: 10 mls/hr Documented by: Piperacillin Sod/Tazobactam (Sod 3.375 gm/ Dextrose) 50 mls @ 100 mls/hr IVPB Q8H-IV ERIKA; Protocol Fluconazole (Diflucan 200 Mg/Ns Premixed Ivpb -) 100 mls @ 100 mls/hr IVPB DAILY [facility] Last Admin: 04/10/20 10:57 Dose: 100 mls/hr Documented by: Amino Acids (Clinimix -) 1,000 mls @ 84 mls/hr IV Q12H [facility] Last Admin: 04/10/20 12:47 Dose: 84 mls/hr Documented by: Morphine Sulfate (Morphine Sulfate) 8 mg IVPB Q3H PRN PRN Reason: PAIN LEVEL 7 - 10 Mupirocin (Bactroban Ointment (For Decolonization) -) 1 applic NS BID ERIKA Stop: 04/14/20 21:59 Last Admin: 04/10/20 11:02 Dose: 1 applic Documented by: Ondansetron HCl (Zofran Injection) 4 mg IVPUSH Q6H PRN PRN Reason: NAUSEA Constitutional: Yes: Well Nourished, No Distress, Calm Eyes: Yes: WNL, Conjunctiva Clear, EOM Intact HENT: Yes: WNL, Atraumatic, Normocephalic Neck: Yes: WNL, Supple, Trachea Midline Cardiovascular: Yes: WNL, Regular Rate and Rhythm, S1, S2 Respiratory: Yes: WNL, Regular, CTA Bilaterally Gastrointestinal: Yes: Well stapled surgical site, mild tenderness to palpation, Hypoactive BS Renal/: Yes: WNL ([place] present), Other Musculoskeletal: Yes: WNL Extremities: Yes: WNL Edema: No Integumentary: Yes: WNL Wound/Incision: Yes: Clean/Dry, Well Approximated, [place] Intact Neurological: Yes: WNL, Alert, Oriented ...Motor Strength: WNL Psychiatric: Yes: WNL, Alert, Oriented Labs: Laboratory Results - last 24 hr 04/09/20 04/09/20 04/09/20 09:00 11:50 12:55 WBC RBC Hgb Hct MCV MCH MCHC RDW Plt Count MPV Neutrophils % (Manual) 81.6 Band Neutrophils % 1.0 Lymphocytes % (Manual) 8.2 Monocytes % (Manual) 6 Eosinophils % (Manual) 0.0 Basophils % (Manual) 0.0 Myelocytes % (Man) 0 Promyelocytes % (Man) 0 Blast Cells % (Manual) 0 Nucleated RBC % 0 Metamyelocytes 0 Hypochromia 0 Platelet Estimate Normal Polychromasia 0 Poikilocytosis 0 Anisocytosis 0 Microcytosis 0 Macrocytosis 0 Sodium Potassium Chloride Carbon Dioxide Anion Gap BUN Creatinine Est GFR (CKD-EPI)AfAm Est GFR (CKD-EPI)NonAf Random Glucose Calcium Phosphorus Magnesium Total Bilirubin AST ALT Alkaline Phosphatase Total Protein Albumin Urine Color Yellow Urine Appearance Clear Urine pH 6.0 Ur Specific [place] 1.008 L Urine Protein Trace Urine Glucose (UA) Negative Urine Ketones Negative Urine Blood Negative Urine Nitrite Negative Urine Bilirubin Negative Urine Urobilinogen 0.2 Ur Leukocyte Esterase Negative Blood Type A NEGATIVE Antibody Screen Negative 04/10/20 04/10/20 05:25 05:25 WBC 20.3 H RBC 4.59 Hgb 12.8 Hct 38.6 D MCV 84.1 MCH 28.0 MCHC 33.3 RDW 15.0 Plt Count 284 D MPV 7.5 Neutrophils % (Manual) Band Neutrophils % Lymphocytes % (Manual) Monocytes % (Manual) Eosinophils % (Manual) Basophils % (Manual) Myelocytes % (Man) Promyelocytes % (Man) Blast Cells % (Manual) Nucleated RBC % Metamyelocytes Hypochromia Platelet Estimate Polychromasia Poikilocytosis Anisocytosis Microcytosis Macrocytosis Sodium 138 Potassium 4.5 Chloride 104 Carbon Dioxide 25 Anion Gap 8 BUN 13.3 Creatinine 0.9 Est GFR (CKD-EPI)AfAm 114.21 Est GFR (CKD-EPI)NonAf 98.54 Random Glucose 89 Calcium 8.3 L Phosphorus 4.1 Magnesium 2.2 Total Bilirubin 0.6 AST 18 ALT 16 Alkaline Phosphatase 80 Total Protein 5.1 L Albumin 2.3 L Urine Color Urine Appearance Urine pH Ur Specific [place] Urine Protein Urine Glucose (UA) Urine Ketones Urine Blood Urine Nitrite Urine Bilirubin Urine Urobilinogen Ur Leukocyte Esterase Blood Type Antibody Screen Imaging - Results Cat Scan: Report Reviewed (04/[address] Moderate to large pneumoperitoneum. A small to moderate amount of free fluid is noted within the pelvis and upper abdomen. Nonspecific fluid-filled small bowel dilatation is seen which could be on the basis of an ileus versus distal small bowel obstruction. Mild to moderate fluid-filled gastric distention is also seen. Mild nonspecific left hydronephrosis. Follow-up evaluation is suggested.) Problem List - Problems (1) Pneumoperitoneum Code(s): K66.8 - OTHER SPECIFIED DISORDERS OF PERITONEUM (2) Cocaine abuse Code(s): F14.10 - COCAINE ABUSE, UNCOMPLICATED (3) Hydronephrosis Code(s): N13.30 - UNSPECIFIED HYDRONEPHROSIS (4) Leukocytosis Code(s): D72.829 - ELEVATED WHITE BLOOD CELL COUNT, UNSPECIFIED (5) Leukocytosis Code(s): D72.829 - ELEVATED WHITE BLOOD CELL COUNT, UNSPECIFIED (6) Marijuana abuse Code(s): F12.10 - CANNABIS ABUSE, UNCOMPLICATED (7) Opiate dependence Code(s): F11.20 - OPIOID DEPENDENCE, UNCOMPLICATED Assessment/Plan POD # Exploratory laparotomy, vern patch of perforated ulcer, drainage of ascites, lavage due to a perforated ulcer at anterior pylorus/duodenal bulb Leukocytosis Polysubstance Use -Maintain NGT -Pain control -Central access for TPN to be inserted -PPI -Monitor for any withdrawal signs -VTE prophylaxis -NPO -Strict I/O -Trend and replete lytes -IVF -Keep hgb>7, Plt>10 -Incentive spirometer -Floor Dr Gagnon
--- NOTE | 2020-04-10 14:10 | PN ---
Progress Note (short form) - Note Progress Note: surgery pt seen and examined. pain free. no complaints. ngt minimal. pelletier out and voiding afebrile abd-soft, nt, incision clean Laboratory Tests 04/10/20 05:25 WBC 20.3 H Plan- 1) Pod#1- cont npo, ngt (6 more days), ivf, rajiv. 2) perforated ulcer pre-pyloric/duodenal bulb- cont zosyn and diflucan, cont drain, follow gram stain and culture. can stop diflucan if no yeast. cont protonix drip and ngt. 3) prophylaxis- lovenox, oob, spirometer, 4) nutrition-should be eating by Friday. agree with tpn.
--- NOTE | 2020-04-10 14:55 | CONSULT ---
Consult Consult Specialty:: Nephrology Reason for Consultation:: TPN - History of Present Illness Chief Complaint: abd pain History of Present Illness: Pt is a 49 year old male with hx of substance abuse who presents to the ER with abdominal pain. He was was found to have pneumoperitoneum. He was taken to the OR and found to have a perforated duodenal ulcer. He is to be NPO for a week. I was called to evaluate him for TPN. He is says he feels much better. He does have appetite. He has an NG tube in place. He denies history of kidney disease. - History Source History Provided By: Patient, Medical Record - Alcohol/Substance Use Hx Alcohol Use: Yes (reformed for 2 yrs) History of Substance Use: reports: Cocaine, Marijuana - Smoking History Smoking history: Never smoked Have you smoked in the past 12 months: Yes Aproximately how many cigarettes per day: 20 Home Medications - Allergies Allergies/Adverse Reactions: Allergies Allergy/AdvReac Type Severity Reaction Status Date / Time No Known Allergies Allergy Verified 04/09/20 08:11 - Home Medications Home Medications: Ambulatory Orders NK [No Known Home Medication] 04/09/20 Family Medical History Family History: Denies Review of Systems - Review of Systems Constitutional: reports: No Symptoms Eyes: reports: No Symptoms HENT: reports: No Symptoms Neck: reports: No Symptoms Cardiovascular: reports: No Symptoms Respiratory: reports: No Symptoms Gastrointestinal: reports: Abdominal Pain Genitourinary: reports: No Symptoms Musculoskeletal: reports: No Symptoms Integumentary: reports: No Symptoms Neurological: reports: No Symptoms Endocrine: reports: No Symptoms Hematology/Lymphatic: reports: No Symptoms Psychiatric: reports: No Symptoms Physical Exam Vital Signs: Vital Signs Temperature 98.2 F 04/10/20 06:00 Pulse Rate 71 04/10/20 10:00 Respiratory Rate 16 04/10/20 10:00 Blood Pressure 138/93 04/10/20 10:00 O2 Sat by Pulse Oximetry (%) 99 04/10/20 10:00 Constitutional: Yes: Calm Eyes: Yes: Conjunctiva Clear HENT: Yes: Atraumatic Neck: Yes: Supple Cardiovascular: Yes: S1, S2 Respiratory: Yes: CTA Bilaterally Gastrointestinal: Yes: Normal Bowel Sounds, Soft, Other (héctor in place, rajiv dr lilly) Renal/: Yes: WNL Musculoskeletal: Yes: WNL Neurological: Yes: Oriented Psychiatric: Yes: Oriented Labs: CBC, BMP 04/10/20 05:25 04/10/20 05:25 Laboratory Tests 04/09/20 04/09/20 04/09/20 09:00 09:00 11:40 WBC 22.1 H Sodium 134 L Creatinine 0.9 Phosphorus Magnesium Albumin 3.4 Ur Specific [place] Urine Protein Urine Blood Opiates Screen Cocaine Screen U Marijuana (THC) Screen SARS-CoV-2 (PCR) Negative 04/09/20 04/09/20 04/10/20 12:55 12:55 05:25 WBC 20.3 H Sodium Creatinine Phosphorus Magnesium Albumin Ur Specific [place] 1.008 L Urine Protein Trace Urine Blood Negative Opiates Screen Positive A* Cocaine Screen Positive A* U Marijuana (THC) Screen Positive A* SARS-CoV-2 (PCR) 04/10/20 05:25 WBC Sodium 138 Creatinine 0.9 Phosphorus 4.1 Magnesium 2.2 Albumin 2.3 L Ur Specific [place] Urine Protein Urine Blood Opiates Screen Cocaine Screen U Marijuana (THC) Screen SARS-CoV-2 (PCR) Imaging - Results Cat Scan: Report Reviewed Problem List - Problems (1) Cocaine abuse Code(s): F14.10 - COCAINE ABUSE, UNCOMPLICATED (2) Marijuana abuse Code(s): F12.10 - CANNABIS ABUSE, UNCOMPLICATED (3) Opiate dependence Code(s): F11.20 - OPIOID DEPENDENCE, UNCOMPLICATED (4) Perforated chronic gastric ulcer Code(s): K25.5 - CHRONIC OR UNSPECIFIED GASTRIC ULCER WITH PERFORATION Assessment/Plan Current Medications Generic Name Dose Route Start Last Admin Trade Name Freq PRN Reason Stop Dose Admin Chlorhexidine Gluconate 1 applic 04/09/20 22:00 04/09/20 22:33 Hibiclens For Decolonization - TP 1 applic HS ERIKA Administration Enoxaparin Sodium 40 mg 04/10/20 10:00 04/10/20 10:59 Lovenox - SQ 40 mg DAILY ERIKA Administration Pantoprazole Sodium 80 mg/ 100 mls @ 10 mls/hr 04/09/20 19:00 04/10/20 04:00 Sodium Chloride IVPB 04/12/20 18:54 10 mls/hr Q10H ERIKA Administration 8 MG/HR Piperacillin Sod/Tazobactam 50 mls @ 100 mls/hr 04/10/20 18:00 Sod 3.375 gm/ Dextrose IVPB Q8H-IV ERIKA Protocol Fluconazole 100 mls @ 100 mls/hr 04/10/20 10:00 04/10/20 10:57 Diflucan 200 Mg/Ns Premixed Ivpb - IVPB 100 mls/hr DAILY ERIKA Administration Multivitamins/Minerals 10 ml/ 2,552.85 mls @ 106.369 mls/hr 04/10/20 16:00 Sterile Water/ Amino Acids/ IV Dextrose DAILY@1600 ERIKA Morphine Sulfate 8 mg 04/09/20 18:50 Morphine Sulfate IVPB Q3H PRN PAIN LEVEL 7 - 10 Mupirocin 1 applic 04/09/20 22:00 04/10/20 11:02 Bactroban Ointment (For Decolonization) - NS 04/14/20 21:59 1 applic BID ERIKA Administration Ondansetron HCl 4 mg 04/09/20 18:50 Zofran Injection IVPUSH Q6H PRN NAUSEA Impression 1. perforated duodenal ulcer 2. polysubstacne use 3. npo for 1 week 4. s/p surgery for ruptured duodenal ulcer Plan - reviewed surgical plan, pt to be NPO for a week - called and discussed with dietary - TPN orders written, will start with 1 liter - check lipids - will likely give lipids tomorrow - ICU team to place access for tpn
[2020-04-10 15:24] LABS: ALBUMIN 2.3 g/dl (3.4-5.0); BILIRUBIN,DIRECT 0.2 mg/dL (0.0-0.2); BILIRUBIN,TOTAL 0.4 mg/dL (0.2-1)
[2020-04-10 15:30] LABS: MAGNESIUM 2.1 mg/dL (1.8-2.4)
--- NOTE | 2020-04-10 15:41 | CON.ID ---
Consult Consult Specialty:: infectious diseases Referred by:: maria dolores Reason for Consultation:: post op,leukocytosis - History of Present Illness Chief Complaint: leukocytosis, History of Present Illness: 49yo M with substance use who presents today after 2 days of abdominal pain described as generalized nonremitting pain. He reports 2 days prior to presentation he had sudden onset of distention and abdominal pain which worsened over the last two days. At the time he had one beer and was smoking marijuana, but the night prior he had used cocaine (snorting). He occasionally uses cocaine and his last use was at that time. Patient also endorses having diaphoresis last night, but did not have any rigors or chills patient patient was worked up perforated viscous and ascites on ct surgery took the patient to the or and patient underwent surgery currently post op in the icu - History Source History Provided By: Patient Limitations to Obtaining History: No Limitations - Alcohol/Substance Use Hx Alcohol Use: Yes (reformed for 2 yrs) History of Substance Use: reports: Cocaine, Marijuana - Smoking History Smoking history: Never smoked Have you smoked in the past 12 months: Yes Aproximately how many cigarettes per day: 20 Home Medications - Allergies Allergies/Adverse Reactions: Allergies Allergy/AdvReac Type Severity Reaction Status Date / Time No Known Allergies Allergy Verified 04/09/20 08:11 - Home Medications Home Medications: Ambulatory Orders NK [No Known Home Medication] 04/09/20 Family Medical History Family History: Denies Review of Systems - Review of Systems Constitutional: reports: No Symptoms Eyes: reports: No Symptoms HENT: reports: No Symptoms Neck: reports: No Symptoms Cardiovascular: reports: No Symptoms Respiratory: reports: No Symptoms Gastrointestinal: reports: No Symptoms Genitourinary: reports: No Symptoms Musculoskeletal: reports: No Symptoms Integumentary: reports: No Symptoms Neurological: reports: No Symptoms Endocrine: reports: No Symptoms Hematology/Lymphatic: reports: No Symptoms Psychiatric: reports: No Symptoms Physical Exam Vital Signs: Vital Signs Temperature 98.2 F 04/10/20 06:00 Pulse Rate 71 04/10/20 10:00 Respiratory Rate 16 04/10/20 10:00 Blood Pressure 138/93 04/10/20 10:00 O2 Sat by Pulse Oximetry (%) 99 04/10/20 10:00 Constitutional: Yes: Calm, Mild Distress Eyes: Yes: Conjunctiva Clear HENT: Yes: Atraumatic, Normocephalic Neck: Yes: Supple, Trachea Midline Cardiovascular: Yes: Regular Rate and Rhythm Respiratory: Yes: Regular, CTA Bilaterally Gastrointestinal: Yes: Soft, Other (absent bowel sounds, ng tube in place) Musculoskeletal: Yes: WNL Extremities: Yes: WNL Neurological: Yes: Alert, Oriented Psychiatric: Yes: Alert, Oriented Labs: CBC, BMP 04/10/20 05:25 04/10/20 05:25 Imaging - Results Chest X-ray: Report Reviewed, Image Reviewed Cat Scan: Report Reviewed, Image Reviewed Assessment/Plan Problem List - Problems (1) Pneumoperitoneum Code(s): K66.8 - OTHER SPECIFIED DISORDERS OF PERITONEUM (2) Cocaine abuse Code(s): F14.10 - COCAINE ABUSE, UNCOMPLICATED (3) Hydronephrosis Code(s): N13.30 - UNSPECIFIED HYDRONEPHROSIS (4) Leukocytosis Code(s): D72.829 - ELEVATED WHITE BLOOD CELL COUNT, UNSPECIFIED (5) Leukocytosis Code(s): D72.829 - ELEVATED WHITE BLOOD CELL COUNT, UNSPECIFIED (6) Marijuana abuse Code(s): F12.10 - CANNABIS ABUSE, UNCOMPLICATED (7) Opiate dependence Code(s): F11.20 - OPIOID DEPENDENCE, UNCOMPLICATED Assessment/Plan POD # Exploratory laparotomy, vern patch of perforated ulcer, drainage of ascites, lavage due to a perforated ulcer at anterior pylorus/duodenal bulb Leukocytosis Polysubstance Use -Maintain NGT tpn will continue zosyn monitor wbc close watch rest as per the team
--- NOTE | 2020-04-10 16:17 | HOSP ---
Subjective - Review of Symptoms HEENT: Yes: Head Aches Gastrointestinal: Yes: Other (aches near incision ) Physical Examination Vital Signs: Vital Signs Temperature 98.2 F 04/10/20 06:00 Pulse Rate 71 04/10/20 10:00 Respiratory Rate 16 04/10/20 10:00 Blood Pressure 138/93 04/10/20 10:00 O2 Sat by Pulse Oximetry (%) 99 04/10/20 10:00 Constitutional: Yes: No Distress HENT: Yes: Atraumatic, Normocephalic Cardiovascular: Yes: WNL, Regular Rate and Rhythm, S1, S2 Respiratory: Yes: WNL, Regular, CTA Bilaterally Gastrointestinal: Yes: Hypoactive Bowel Sounds, Tenderness (TTP) Labs: CBC, BMP 04/10/20 05:25 04/10/20 05:25 Hospitalist Encounter Assessment: 49 YO M with polysubstance use disorder (Cocaine, Marijuana) presents with 2 days of worsening generalized nonremitting abdominal pain with sudden onset of distention. Patient had one beer, smoked marijuana, and the prior night, she snorted cocaine. On CXR, pneumoperitoneum was noted. CTAP showed moderate-large pneumoperitoneum, and a small-moderate amount of free fluid within the pelvis and upper abdomen; Nonspecific fluid-filled small bowel dilatation is seen which could be on the basis of an ileus versus distal small bowel obstruction. Mild to moderate fluid-filled gastric distention is also seen. Mild nonspecific left hydronephrosis. Patient underwent exploratory laparotomy, vern patch procedure of perforated ulcer, drainage of ascites, lavage for perforated viscus and ascites. Betsey was found to have perforated ulcer at anterior pylorus/duodenal bulb, ascites with exudate. Tylenol and Morphine were given for pain. Zosyn 3.375gm Q8H(04/10) and Flucanazole 200 mg daily (04/09). Nausea/vomiting was managed with zofran, and pantoprazole was given for PUD prophylaxis. Per surgery, the NG tube and JOSE drain will remain for 1 week. Patient will receive TPN for nutrition and be encouraged to use Incentive spirometer. Patient's pain is well-controlled and describes it only as "aches." Patient is stable for transfer to med surg. Visit type - Emergency Visit Emergency Visit: Yes ED Registration Date: 09/20/20 Care time: The patient presented to the Emergency Department on the above date and was hospitalized for further evaluation of their emergent condition. - New Patient This patient is new to me today: Yes Date on this admission: 04/11/20 - Critical Care Critical Care patient: No
--- NOTE | 2020-04-10 16:36 | PN ---
Physical Exam: SUBJECTIVE: Patient seen and examined. Denies acute pain. Patient's abdominal pain is well-controlled and describes it only as "aches." Endorses headache, which was managed with ofiramev. No overnight events. OBJECTIVE: Vital Signs Period Temp Pulse Resp BP Sys/Nuno Pulse Ox Last 24 Hr 97.6 F-98.9 F 66-111 12-18 122-151/74-108 95-100 GENERAL: The patient is awake, alert, and fully oriented, in no acute distress. HEENT: Normal with no signs of trauma. PERRL, No ptosis. MMM LUNGS: Breath sounds equal, clear to auscultation bilaterally, no wheezes, no crackles, no accessory muscle use. HEART: Regular rate and rhythm, S1, S2 without murmur, rub or gallop. ABDOMEN: Soft, nondistended, no guarding, no rebound, TTP, hypoactive bowel sounds. incision dry and intact; héctor, JOSE drian EXTREMITIES: 2+ pulses, warm, well-perfused, no edema. NEUROLOGICAL: Normal speech, gait not observed. PSYCH: Normal mood, normal affect. Laboratory Results - last 24 hr 04/10/20 04/10/20 04/10/20 05:25 05:25 14:35 WBC 20.3 H RBC 4.59 Hgb 12.8 Hct 38.6 D MCV 84.1 MCH 28.0 MCHC 33.3 RDW 15.0 Plt Count 284 D MPV 7.5 Sodium 138 Potassium 4.5 Chloride 104 Carbon Dioxide 25 Anion Gap 8 BUN 13.3 Creatinine 0.9 Est GFR (CKD-EPI)AfAm 114.21 Est GFR (CKD-EPI)NonAf 98.54 Random Glucose 89 Calcium 8.3 L Phosphorus 4.1 Magnesium 2.2 2.1 Total Bilirubin 0.6 Direct Bilirubin AST 18 ALT 16 Alkaline Phosphatase 80 Total Protein 5.1 L Albumin 2.3 L Serum Folate 4 04/10/20 14:35 WBC RBC Hgb Hct MCV MCH MCHC RDW Plt Count MPV Sodium Potassium Chloride Carbon Dioxide Anion Gap BUN Creatinine Est GFR (CKD-EPI)AfAm Est GFR (CKD-EPI)NonAf Random Glucose Calcium Phosphorus Magnesium Total Bilirubin 0.4 Direct Bilirubin 0.2 AST 17 ALT 17 Alkaline Phosphatase 75 Total Protein 5.0 L Albumin 2.3 L Serum Folate Active Medications Generic Name Dose Route Start Last Admin Trade Name Freq PRN Reason Stop Dose Admin Chlorhexidine Gluconate 1 applic 04/09/20 22:00 04/09/20 22:33 Hibiclens For Decolonization - TP 1 applic HS ERIKA Administration Enoxaparin Sodium 40 mg 04/10/20 10:00 04/10/20 10:59 Lovenox - SQ 40 mg DAILY ERIKA Administration Pantoprazole Sodium 80 mg/ 100 mls @ 10 mls/hr 04/09/20 19:00 04/10/20 04:00 Sodium Chloride IVPB 04/12/20 18:54 10 mls/hr Q10H ERIKA Administration 8 MG/HR Fluconazole 100 mls @ 100 mls/hr 04/10/20 10:00 04/10/20 10:57 Diflucan 200 Mg/Ns Premixed Ivpb - IVPB 100 mls/hr DAILY ERIKA Administration Multivitamins/Minerals 10 ml/ 2,552.85 mls @ 106.369 mls/hr 04/10/20 16:00 Sterile Water/ Amino Acids/ IV Dextrose DAILY@1600 ERIKA Piperacillin Sod/Tazobactam 50 mls @ 100 mls/hr 04/10/20 18:00 Sod 3.375 gm/ Dextrose IVPB Q8H-IV ERIKA Protocol Morphine Sulfate 8 mg 04/09/20 18:50 Morphine Sulfate IVPB Q3H PRN PAIN LEVEL 7 - 10 Mupirocin 1 applic 04/09/20 22:00 04/10/20 11:02 Bactroban Ointment (For Decolonization) - NS 04/14/20 21:59 1 applic BID ERIKA Administration Ondansetron HCl 4 mg 04/09/20 18:50 Zofran Injection IVPUSH Q6H PRN NAUSEA ASSESSMENT/PLAN: 49 YO M with polysubstance use disorder (Cocaine, Marijuana) presents with 2 days of worsening generalized nonremitting abdominal pain with sudden onset of distention. Found to have pneumoperitoneum and underwent underwent exploratory laparotomy, vern patch procedure of perforated ulcer, drainage of ascites, lavage for perforated viscus and ascites. Patient was found to have perforated ulcer at anterior pylorus/duodenal bulb, ascites with exudate and admitted to ICU. POD#1 Neuro awake and oriented PULM -CXR: clear lungs, sharp angles, normal mediastinum -encourage Incentive spirometer use GI #Pneumoperitoneum 2/2 perforated ulcer at anterior pylorus/duodenal bulb, ascites with exudate. S/p exploratory laparotomy, vern patch procedure of perforated ulcer, drainage of ascites. POD#1 - CXR: pneumoperitoneum -04/[address] Moderate to large pneumoperitoneum. A small to moderate amount of free fluid is noted within the pelvis and upper abdomen. Nonspecific fluid-filled small bowel dilatation is seen which could be on the basis of an ileus versus distal small bowel obstruction. Mild to moderate fluid-filled gastric distention is also seen. Mild nonspecific left hydronephrosis. -Tylenol and Morphine for pain -Zosyn 3.375gm Q8H(04/10) and Flucanazole 200 mg daily (04/09) -zofran 4 mg IV push PRN -Pantoprazole for PUD ppx -Per surgery, the NG tube and JOSE drain will remain for 1 week. Patient will receive TPN for nutrition RENAL #Left Hydronephrosis on CTAP -No obvious Left ureteral dilatation is seen. No evidence of urolithiasis -BUN/Cr 12.6/0.9 -UA: specific gravity decreased 1.008 Psych #Polysubstance Use -UA: opiates, cocaine, marijuana FEN no IVF monitor lytes NPO (no meds or ice chips). Discussed with Renal and TPN will be given for nutr ition. DVT PPX Lovenox 40 mg sq DISPO transfer to med surg Visit type - Emergency Visit Emergency Visit: Yes ED Registration Date: 04/09/20 Care time: The patient presented to the Emergency Department on the above date and was hospitalized for further evaluation of their emergent condition. - New Patient This patient is new to me today: No - Critical Care Critical Care patient: No ATTENDING PHYSICIAN STATEMENT I saw and evaluated the patient. I reviewed the resident's note and discussed the case with the resident. I agree with the resident's findings and plan as documented. SUBJECTIVE: OBJECTIVE: ASSESSMENT AND PLAN:
[2020-04-10] MEDS ORDERED: ACETAMINOPHEN 1000 MG/100 ML VIAL (NON FORMULARY) IVPB PRN (16:59)
[2020-04-10] MEDS ORDERED: MORPHINE SULFATE 2 MG/ML VIAL ONE (16:59)
[2020-04-10] MEDS: MORPHINE SULFATE 2 MG/ML VIAL IVPUSH PRN ×2 (17:05→21:07)
--- NOTE | 2020-04-10 17:32 | PN ---
Progress Note (short form) - Note Progress Note: Patient is a 49 y/o male with polysubstance abuse who was found to have a pneumopareitoneum and perforated peptic ulcer. Patient underwent ex lap, vern patch, and drainage of ascites. Patient states he is doing well and in moderate amount of pain. Patient remains NPO. Stable for downgrade to the floor. Vital Signs Temperature 98.2 F 04/10/20 06:00 Pulse Rate 71 04/10/20 10:00 Respiratory Rate 16 04/10/20 10:00 Blood Pressure 138/93 04/10/20 10:00 O2 Sat by Pulse Oximetry (%) 99 04/10/20 10:00 Physical EXAM general: NG tube in place heart: RRR lungs: CTAL ABD: midline héctor in place
[2020-04-10] MEDS ORDERED: PIPERACILLIN/TAZOB 3.375 GM 3.375 GM in DEXTROSE 5%-WATER - 50 ML IVPB SCH ×2 (18:00)
[2020-04-10] MEDS: [UNRECOGNIZED DRUG - OTHER] IV SCH ×2 (20:06→21:08)
[2020-04-10] MEDS: WATER FOR INJ STERILE IV SCH ×2 (20:06→21:08)
[2020-04-10] MEDS: MULTIVIT IV SCH ×2 (20:06→21:08)
[2020-04-10] MEDS: CHLORHEXIDINE GLUCONATE 4% CLEANSER FOR DECOLONIZATION TP SCH (21:12)
--- NOTE | 2020-04-10 22:57 | PN ---
Teaching Attending Note Name of Resident: Vaishali Hercules ATTENDING PHYSICIAN STATEMENT I saw and evaluated the patient. I reviewed the resident's note and discussed the case with the resident. I agree with the resident's findings and plan as documented. SUBJECTIVE: Patient seen and examined at bedside, s/p ex-lap for perforated duodenal bulb ulcer POD#1, NGT in place, denies complaints. VSS. OBJECTIVE: GA tired appearing, mild distress, AAox3 HEENT NC/AT, NGT+, neck supple Chest CTAB CVS s1, S2+, RRR Abd tenderness at incision sites, no guarding, decreased BS Ext no LE edema Vital Signs (72 hours) 04/09/20 04/09/20 04/09/20 08:13 12:06 14:50 Temperature 97.8 F 98.8 F Pulse Rate 114 H Pulse Rate [ 84 95 H Right] Respiratory 16 18 18 Rate Blood Pressure 153/95 Blood Pressure 151/84 140/98 [Left Arm] O2 Sat by Pulse 100 100 96 Oximetry (%) 04/09/20 04/09/20 04/09/20 18:55 19:10 19:25 Temperature Pulse Rate 111 H 94 H 84 Pulse Rate [ Right] Respiratory 14 16 14 Rate Blood Pressure 148/95 144/92 134/82 Blood Pressure [Left Arm] O2 Sat by Pulse 98 100 100 Oximetry (%) 04/09/20 04/09/20 04/09/20 19:40 19:55 20:10 Temperature Pulse Rate 80 80 82 Pulse Rate [ Right] Respiratory 14 16 14 Rate Blood Pressure 122/76 124/77 124/78 Blood Pressure [Left Arm] O2 Sat by Pulse 100 100 100 Oximetry (%) 04/09/20 04/09/20 04/09/20 20:25 20:30 22:00 Temperature 98.9 F 97.6 F 98.1 F Pulse Rate 82 84 108 H Pulse Rate [ Right] Respiratory 16 17 17 Rate Blood Pressure 122/74 151/108 H 140/101 H Blood Pressure [Left Arm] O2 Sat by Pulse 100 100 100 Oximetry (%) 04/10/20 04/10/20 04/10/20 00:58 02:00 04:00 Temperature 97.9 F Pulse Rate 100 H 87 66 Pulse Rate [ Right] Respiratory 17 12 15 Rate Blood Pressure 126/99 128/79 139/96 Blood Pressure [Left Arm] O2 Sat by Pulse 100 100 100 Oximetry (%) 04/10/20 04/10/20 04/10/20 06:00 09:00 10:00 Temperature 98.2 F Pulse Rate 78 71 Pulse Rate [ Right] Respiratory 18 18 16 Rate Blood Pressure 138/79 138/93 Blood Pressure [Left Arm] O2 Sat by Pulse 99 99 99 Oximetry (%) 04/10/20 04/10/20 04/10/20 13:00 19:00 20:00 Temperature 98.8 F Pulse Rate 68 76 78 Pulse Rate [ Right] Respiratory 19 18 18 Rate Blood Pressure 133/106 H 174/113 H 160/70 Blood Pressure [Left Arm] O2 Sat by Pulse 99 96 96 Oximetry (%) Microbiology 04/09/20 21:28 Blood - Peripheral Venous Blood Culture - Preliminary NO GROWTH OBTAINED AFTER 24 HOURS, INCUBATION TO CONTINUE FOR 4 DAYS. 04/09/20 21:31 Blood - Peripheral Venous Blood Culture - Preliminary NO GROWTH OBTAINED AFTER 24 HOURS, INCUBATION TO CONTINUE FOR 4 DAYS. 04/09/20 17:46 Tissue-Other Gram Stain - Final Laboratory Results - last 24 hr 04/10/20 04/10/20 04/10/20 05:25 05:25 14:35 WBC 20.3 H RBC 4.59 Hgb 12.8 Hct 38.6 D MCV 84.1 MCH 28.0 MCHC 33.3 RDW 15.0 Plt Count 284 D MPV 7.5 Sodium 138 Potassium 4.5 Chloride 104 Carbon Dioxide 25 Anion Gap 8 BUN 13.3 Creatinine 0.9 Est GFR (CKD-EPI)AfAm 114.21 Est GFR (CKD-EPI)NonAf 98.54 Random Glucose 89 Calcium 8.3 L Phosphorus 4.1 Magnesium 2.2 2.1 Total Bilirubin 0.6 Direct Bilirubin AST 18 ALT 16 Alkaline Phosphatase 80 Total Protein 5.1 L Albumin 2.3 L Serum Folate 4 04/10/20 14:35 WBC RBC Hgb Hct MCV MCH MCHC RDW Plt Count MPV Sodium Potassium Chloride Carbon Dioxide Anion Gap BUN Creatinine Est GFR (CKD-EPI)AfAm Est GFR (CKD-EPI)NonAf Random Glucose Calcium Phosphorus Magnesium Total Bilirubin 0.4 Direct Bilirubin 0.2 AST 17 ALT 17 Alkaline Phosphatase 75 Total Protein 5.0 L Albumin 2.3 L Serum Folate Home Medications Medication Instructions Recorded NK [No Known Home Medication] 04/09/20 Current Medications Generic Name Dose Route Start Last Admin Trade Name Sánchezq PRN Reason Stop Dose Admin Acetaminophen 1,000 mg 04/10/20 16:59 Ofirmev Injection - IVPB 04/11/20 22:00 Q6H PRN PAIN Chlorhexidine Gluconate 1 applic 04/09/20 22:00 04/10/20 21:12 Hibiclens For Decolonization - TP 1 applic HS ERIKA Administration Enoxaparin Sodium 40 mg 04/10/20 10:00 04/10/20 10:59 Lovenox - SQ 40 mg DAILY ERIKA Administration Pantoprazole Sodium 80 mg/ 100 mls @ 10 mls/hr 04/09/20 19:00 04/10/20 15:15 Sodium Chloride IVPB 04/12/20 18:54 10 mls/hr Q10H ERIKA Administration 8 MG/HR Fluconazole 100 mls @ 100 mls/hr 04/10/20 10:00 04/10/20 10:57 Diflucan 200 Mg/Ns Premixed Ivpb - IVPB 100 mls/hr DAILY ERIKA Administration Multivitamins/Minerals 10 ml/ 2,552.85 mls @ 106.369 mls/hr 04/10/20 16:00 04/10/20 21:08 Sterile Water/ Amino Acids/ IV 106.369 mls/hr Dextrose DAILY@1600 ERIKA Administration Piperacillin Sod/Tazobactam 50 mls @ 100 mls/hr 04/10/20 18:00 04/10/20 18:20 Sod 3.375 gm/ Dextrose IVPB 100 mls/hr Q8H-IV ERIKA Administration Protocol Morphine Sulfate 2 mg 04/10/20 16:59 04/10/20 21:07 Morphine Sulfate IVPUSH 2 mg Q4H PRN Administration PAIN LEVEL 6-10 Mupirocin 1 applic 04/09/20 22:00 04/10/20 21:12 Bactroban Ointment (For Decolonization) - NS 04/14/20 21:59 1 applic BID ERIKA Administration Ondansetron HCl 4 mg 04/09/20 18:50 Zofran Injection IVPUSH Q6H PRN NAUSEA ASSESSMENT AND PLAN: 49 M Perforated duodenal ulcer s/p ex-lap POD#1 HTN Peptic ulcer disease PSA Plan: Bowel rest, will need Clinimix for nutrition Zosyn/Fluconazole PPI Lovenox DVT ppx per Surgery team Surgery following Stable for monitoring on floors
[2020-04-10] MEDS ORDERED: MORPHINE SULFATE 2 MG/ML VIAL IVPUSH ONE (22:59)
[2020-04-11] MEDS ORDERED: PIPERACILLIN/TAZOBACTAM 3.375 GM VIAL IVPB ONE ×3 (02:35→15:55)
[2020-04-11] MEDS ORDERED: DEXTROSE 5%-WATER - 50 ML IVPB ONE ×3 (02:35→15:56)
[2020-04-11] MEDS: PIPERACILLIN/TAZOB 3.375 GM 3.375 GM in DEXTROSE 5%-WATER - 50 ML IVPB SCH ×3 (02:51→17:00)
[2020-04-11] MEDS: PANTOPRAZOLE SODIUM 80 MG in SODIUM CHLORIDE 100 ML IVPB SCH ×3 (02:51→21:32)
[2020-04-11 06:10] LABS: BASO % 0.2 % (0-2.0); EOS % 0.4 % (0-4.5); HEMATOCRIT 37.6 % (35.4-49); HEMOGLOBIN 12.3 GM/dL (11.7-16.9); LYMPH % 10.9 % (8-40); MCH 27.3 pg (25.7-33.7); MCHC 32.7 g/dl (32.0-35.9); MEAN CELL VOLUME 83.5 fl (80-96); MEAN PLT VOLUME 7.1 fl (7.5-11.1); NEUT % 82.5 % (42.8-82.8); PLATELET COUNT 301 K/MM3 (134-434); RBC 4.51 M/mm3 (4.00-5.60); RDW 14.8 % (11.9-15.9); WHITE BLOOD COUNT 12.4 K/mm3 (4.0-10.0)
[2020-04-11 06:39] LABS: ALBUMIN 2.3 g/dl (3.4-5.0); BILIRUBIN,TOTAL 0.5 mg/dL (0.2-1); CALCIUM 8.4 mg/dL (8.5-10.1); CREATININE 0.9 mg/dL (0.55-1.3); MAGNESIUM 2.1 mg/dL (1.8-2.4); POTASSIUM 3.9 mmol/L (3.5-5.1); TOT PROT 5.2 g/dl (6.4-8.2)
[2020-04-11 06:50] LABS: BLOOD UREA NITROGEN 17.8 mg/dL (7-18)
--- NOTE | 2020-04-11 08:11 | PN ---
Progress Note (short form) - Note Progress Note: GENERAL SURGERY POD #2 No acute events per RN notes. Alert. Sitting up in bed. Wearing NC at 3L. C/o incisional tenderness. Adequate pain control w/ medications ordered. Denies n/v/f/c, CP, palpitations, SOB or LEAL. Last Vital Signs Temp Pulse Resp BP Pulse Ox 98.5 F 72 17 135/92 94 L 04/11/20 06:00 04/11/20 06:00 04/11/20 06:00 04/11/20 06:00 04/11/20 04:00 CBC, BMP 04/11/20 05:30 04/11/20 05:30 GEN: nad PULM: unlabored respirations on room air COR: rrr ABD: midline incision w/ héctor intact. (covered w/ dermabond) : pelletier to gravity (clear) LE: SCDs in place. All compartments soft/supple/nt A/P: 49 yo male POD #1 s/p exploratory laparotomy, vern patch procedure of perforated ulcer pre-pyloric/duodenal bulb -Strict NPO -NGT to remain for 1 week -JOSE to remain for 1 week -Protonix drip -Cont Diflucan -- can dc diflucan if no yeast -follow gram stain and culture -Cont Zosyn IVPB -DVT PPx Above plan discussed w/ Dr. Young and agrees. Problem List - Problems (1) Perforated chronic gastric ulcer Code(s): K25.5 - CHRONIC OR UNSPECIFIED GASTRIC ULCER WITH PERFORATION (2) Cocaine abuse Code(s): F14.10 - COCAINE ABUSE, UNCOMPLICATED (3) Marijuana abuse Code(s): F12.10 - CANNABIS ABUSE, UNCOMPLICATED
[2020-04-11] MEDS ORDERED: POTASSIUM PHOSPHATE 20 MM in SODIUM CHLORIDE 250 ML IVPB ONE (09:00)
[2020-04-11] MEDS: MUPIROCIN 2% TOPICAL OINTMENT FOR DECOLONIZATION NS SCH ×2 (09:47→21:30)
[2020-04-11] MEDS: ENOXAPARIN NA (PORCINE) 40 MG/0.4 ML DISP.SYRIN SQ SCH (09:47)
[2020-04-11] MEDS: FLUCONAZOLE 200 MG/NS 100 ML IVPB SCH (09:48)
[2020-04-11] MEDS: MORPHINE SULFATE 2 MG/ML VIAL IVPUSH PRN (10:58)
--- NOTE | 2020-04-11 11:32 | PROC ---
Central Line Insertion Indication: Parenteral Nutrition Risks and Benefits Explained: Yes Consent on Chart: Yes Central Line: Triple Lumen Catheter Anesthesia: 1% Lidocaine w/ epi Sterile Technique: Yes Ultrasound Guided Assistance: Yes Position: Right Internal Jugular Post Insertion: Yes: Bilateral Breath Sounds, Bilateral Chest Expansion, Chest X-Ray Ordered Sterile Dressing Applied: Yes
--- NOTE | 2020-04-11 11:35 | PN ---
Progress Note (short form) - Note Progress Note: S: Patient had difficulty sleeping due to pain, however controlled at this point. No other complaints. No flatus. No fevers/chills, SOB, CP. Vital Signs Temperature 99.2 F 04/11/20 10:00 Pulse Rate 60 04/11/20 10:00 Respiratory Rate 04/11/20 10:00 Blood Pressure 147/100 04/11/20 10:00 O2 Sat by Pulse Oximetry (%) 94 L 04/11/20 09:59 PE: GENERAL: Awake, alert, and fully oriented, in no acute distress. HEENT: NC/AT, MARK, L eye amblyopia, EOMI without nystagmus, L Nare NGT minimally draining, dry mucosa NECK: No JVD. LUNGS: CTA bilaterally. No wheezes, and no crackles. No accessory muscle use. On RA HEART: RRR, normal S1 and S2 without murmur ABDOMEN: soft, midline incision C/D/I closed with héctor, RUQ JOSE drain with serosanguinous 10cc fluid, - BS, minimal tenderness around surgical incisions. EXTREMITIES: 2+ pulses, warm, well-perfused. No calf tenderness. No peripheral edema. PSYCHIATRIC: Cooperative. Good eye contact. Appropriate mood and affect. SKIN: Warm, dry, no rashes CBC, BMP 04/11/20 05:30 04/11/20 05:30 Microbiology 04/09/20 17:46 Tissue-Other Gram Stain - Final 04/09/20 17:46 Tissue-Other Tissue Culture - Preliminary NO AEROBIC GROWTH, 24 HRS 04/09/20 21:28 Blood - Peripheral Venous Blood Culture - Preliminary NO GROWTH OBTAINED AFTER 24 HOURS, INCUBATION TO CONTINUE FOR 4 DAYS. 04/09/20 21:31 Blood - Peripheral Venous Blood Culture - Preliminary NO GROWTH OBTAINED AFTER 24 HOURS, INCUBATION TO CONTINUE FOR 4 DAYS. Active Medications Acetaminophen (Ofirmev Injection -) 1,000 mg IVPB Q6H PRN PRN Reason: PAIN Stop: 04/11/20 22:00 Last Admin: 04/11/20 02:37 Dose: 1,000 mg Documented by: Chlorhexidine Gluconate (Hibiclens For Decolonization -) 1 applic TP HS ERIKA Last Admin: 04/10/20 21:12 Dose: 1 applic Documented by: Enoxaparin Sodium (Lovenox -) 40 mg SQ DAILY [facility] Last Admin: 04/11/20 09:47 Dose: 40 mg Documented by: Pantoprazole Sodium 80 mg/ (Sodium Chloride) 100 mls @ 10 mls/hr IVPB Q10H [facility] Stop: 04/12/20 18:54 Last Admin: 04/11/20 10:04 Dose: 10 mls/hr Documented by: Fluconazole (Diflucan 200 Mg/Ns Premixed Ivpb -) 100 mls @ 100 mls/hr IVPB [place] [facility] Last Admin: 04/11/20 09:48 Dose: 100 mls/hr Documented by: Multivitamins/Minerals 10 ml/Sterile Water/ Amino Acids/Dextrose 2,552.85 mls @ 106.369 mls/hr IV DAILY@1600 ERIKA Last Admin: 04/10/20 21:08 Dose: 106.369 mls/hr Documented by: Piperacillin Sod/Tazobactam (Sod 3.375 gm/ Dextrose) 50 mls @ 100 mls/hr IVPB Q8H-IV ERIKA; Protocol Last Admin: 04/11/20 09:47 Dose: 100 mls/hr Documented by: Potassium Phosphate 20 mm/ (Sodium Chloride) 256.6667 mls @ 62.5 mls/hr IVPB ONCE ONE Stop: 04/11/20 13:06 Last Admin: 04/11/20 09:48 Dose: 62.5 mls/hr Documented by: Morphine Sulfate (Morphine Sulfate) 3 mg IVPUSH Q4H PRN PRN Reason: PAIN LEVEL 6-10 Mupirocin (Bactroban Ointment (For Decolonization) -) 1 applic NS BID [facility] Stop: 04/14/20 21:59 Last Admin: 04/11/20 09:47 Dose: 1 applic Documented by: Ondansetron HCl (Zofran Injection) 4 mg IVPUSH Q6H PRN PRN Reason: NAUSEA A/P: Bowel 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
--- NOTE | 2020-04-11 12:39 | PN ---
Progress Note (short form) - Note Progress Note: surgery pt seen and examined. still pain free. no complaints. ngt minimal. rajiv serous afebrile abd-soft, nt, incision clean Laboratory Tests 04/11/20 04/11/20 05:30 05:30 WBC 12.4 H Albumin 2.3 L Plan- 1) Pod#2- cont npo, ngt (5 more days), ivf, rajiv. 2) perforated ulcer pre-pyloric/duodenal bulb- cont zosyn, cont drain, follow gram stain and culture. can likely stop diflucan as no yeast seen on gram stain. wbc improving as expected. cont protonix drip and ngt. 3) prophylaxis- lovenox, oob, spirometer, 4) nutrition-should be eating by Friday. agree with tpn.
--- NOTE | 2020-04-11 13:56 | PN ---
Progress Note (short form) - Note Progress Note: Patient seen and examined in the ICU. Awake and alert. Improving abdominal pain overall. No CP or SOB. No flatus or BM. NGT in place. On TPN. Intake & Output 04/08/20 04/09/20 04/10/20 04/11/20 23:59 23:59 23:59 23:59 Intake Total 2125 2125 1769 Output Total 960 2245 625 Balance 1165 -120 1144 Weight 165 lb 5.547 oz 165 lb 165 lb 9.6 oz Last Vital Signs Temp Pulse Resp BP Pulse Ox 99.2 F 63 18 150/96 94 L 04/11/20 10:00 04/11/20 12:00 04/11/20 12:00 04/11/20 12:00 04/11/20 09:59 Active Medications Acetaminophen (Ofirmev Injection -) 1,000 mg IVPB Q6H PRN PRN Reason: PAIN Stop: 04/11/20 22:00 Last Admin: 04/11/20 02:37 Dose: 1,000 mg Documented by: Chlorhexidine Gluconate (Hibiclens For Decolonization -) 1 applic TP HS [facility] Last Admin: 04/10/20 21:12 Dose: 1 applic Documented by: Enoxaparin Sodium (Lovenox -) 40 mg SQ DAILY [facility] Last Admin: 04/11/20 09:47 Dose: 40 mg Documented by: Pantoprazole Sodium 80 mg/ (Sodium Chloride) 100 mls @ 10 mls/hr IVPB Q10H [facility] Stop: 04/12/20 18:54 Last Admin: 04/11/20 10:04 Dose: 10 mls/hr Documented by: Multivitamins/Minerals 10 ml/Sterile Water/ Amino Acids/Dextrose 2,552.85 mls @ 106.369 mls/hr IV DAILY@1600 [facility] Stop: 04/11/20 15:59 Last Admin: 04/10/20 21:08 Dose: 106.369 mls/hr Documented by: Piperacillin Sod/Tazobactam (Sod 3.375 gm/ Dextrose) 50 mls @ 100 mls/hr IVPB Q8H-IV [facility]; Protocol Last Admin: 04/11/20 09:47 Dose: 100 mls/hr Documented by: Multivitamins/Minerals 10 ml/Potassium Phosphate 20 mm/Sterile Water/ Amino Acids/Dextrose 1,600 mls @ 66.67 mls/hr IV DAILY@1600 [facility] Fat Emulsion-Soy/MCT/[place]/Fish Oil (Smoflipid 20% Iv Fat Emulsion) 250 mls @ 20.833 mls/hr IV DAILY@2200 [facility] Morphine Sulfate (Morphine Sulfate) 3 mg IVPUSH Q4H PRN PRN Reason: PAIN LEVEL 6-10 Mupirocin (Bactroban Ointment (For Decolonization) -) 1 applic NS BID [facility] Stop: 04/14/20 21:59 Last Admin: 04/11/20 09:47 Dose: 1 applic Documented by: Ondansetron HCl (Zofran Injection) 4 mg IVPUSH Q6H PRN PRN Reason: NAUSEA Constitutional: Yes: Well Nourished, No Distress, Calm Eyes: Yes: WNL, Conjunctiva Clear, EOM Intact HENT: Yes: WNL, Atraumatic, Normocephalic Neck: Yes: WNL, Supple, Trachea Midline Cardiovascular: Yes: WNL, Regular Rate and Rhythm, S1, S2 Respiratory: Yes: WNL, Regular, CTA Bilaterally Gastrointestinal: Yes: Well stapled surgical site, mild tenderness to palpation, Hypoactive BS Renal/: Yes: WNL ([place] present), Other Musculoskeletal: Yes: WNL Extremities: Yes: WNL Edema: No Integumentary: Yes: WNL Wound/Incision: Yes: Clean/Dry, Well Approximated, [place] Intact Neurological: Yes: WNL, Alert, Oriented ...Motor Strength: WNL Psychiatric: Yes: WNL, Alert, Oriented Labs: Laboratory Results - last 24 hr 04/10/20 04/10/20 04/11/20 14:35 14:35 05:30 WBC 12.4 H RBC 4.51 Hgb 12.3 Hct 37.6 MCV 83.5 MCH 27.3 MCHC 32.7 RDW 14.8 Plt Count 301 MPV 7.1 L Absolute Neuts (auto) 10.2 H Neutrophils % 82.5 Lymphocytes % 10.9 D Monocytes % 6.0 Eosinophils % 0.4 D Basophils % 0.2 Nucleated RBC % 0 Sodium Potassium Chloride Carbon Dioxide Anion Gap BUN Creatinine Est GFR (CKD-EPI)AfAm Est GFR (CKD-EPI)NonAf POC Glucometer Random Glucose Calcium Phosphorus Magnesium 2.1 Total Bilirubin 0.4 Direct Bilirubin 0.2 AST 17 ALT 17 Alkaline Phosphatase 75 Total Protein 5.0 L Albumin 2.3 L Triglycerides Cholesterol Total LDL Cholesterol HDL Cholesterol Serum Folate 4 04/11/20 04/11/20 05:30 06:29 WBC RBC Hgb Hct MCV MCH MCHC RDW Plt Count MPV Absolute Neuts (auto) Neutrophils % Lymphocytes % Monocytes % Eosinophils % Basophils % Nucleated RBC % Sodium 139 Potassium 3.9 Chloride 106 Carbon Dioxide 28 Anion Gap 5 L BUN 17.8 Creatinine 0.9 Est GFR (CKD-EPI)AfAm 114.21 Est GFR (CKD-EPI)NonAf 98.54 POC Glucometer 92 Random Glucose 90 Calcium 8.4 L Phosphorus 2.0 L Magnesium 2.1 Total Bilirubin 0.5 Direct Bilirubin AST 15 ALT 16 Alkaline Phosphatase 67 Total Protein 5.2 L Albumin 2.3 L Triglycerides 131 Cholesterol 136 Total LDL Cholesterol 75 HDL Cholesterol 42 Serum Folate Imaging - Results Cat Scan: Report Reviewed (04/[address] Moderate to large pneumoperitoneum. A small to moderate amount of free fluid is noted within the pelvis and upper abdomen. Nonspecific fluid-filled small bowel dilatation is seen which could be on the basis of an ileus versus distal small bowel obstruction. Mild to moderate fluid-filled gastric distention is also seen. Mild nonspecific left hydronephrosis. Follow-up evaluation is suggested.) Problem List - Problems (1) Pneumoperitoneum Code(s): K66.8 - OTHER SPECIFIED DISORDERS OF PERITONEUM (2) Cocaine abuse Code(s): F14.10 - COCAINE ABUSE, UNCOMPLICATED (3) Hydronephrosis Code(s): N13.30 - UNSPECIFIED HYDRONEPHROSIS (4) Leukocytosis Code(s): D72.829 - ELEVATED WHITE BLOOD CELL COUNT, UNSPECIFIED (5) Leukocytosis Code(s): D72.829 - ELEVATED WHITE BLOOD CELL COUNT, UNSPECIFIED (6) Marijuana abuse Code(s): F12.10 - CANNABIS ABUSE, UNCOMPLICATED (7) Opiate dependence Code(s): F11.20 - OPIOID DEPENDENCE, UNCOMPLICATED Assessment/Plan POD # Exploratory laparotomy, vern patch of perforated ulcer, drainage of ascites, lavage due to a perforated ulcer at anterior pylorus/duodenal bulb Leukocytosis Polysubstance Use -Maintain NGT -Pain control -TPN per Renal -PPI -Monitor for any withdrawal signs -VTE prophylaxis -NPO -Strict I/O -Trend and replete lytes -IVF -Incentive spirometer -Floor Dr Gagnon
--- NOTE | 2020-04-11 14:28 | PN ---
Progress Note, Physician History of Present Illness: Pt seen and examined at bedside. He is awake and alert. He denies shortness of breath. - Current Medication List Current Medications: Active Medications Acetaminophen (Ofirmev Injection -) 1,000 mg IVPB Q6H PRN PRN Reason: PAIN Stop: 04/11/20 22:00 Last Admin: 04/11/20 02:37 Dose: 1,000 mg Documented by: Chlorhexidine Gluconate (Hibiclens For Decolonization -) 1 applic TP HS [facility] Last Admin: 04/10/20 21:12 Dose: 1 applic Documented by: Enoxaparin Sodium (Lovenox -) 40 mg SQ DAILY [facility] Last Admin: 04/11/20 09:47 Dose: 40 mg Documented by: Pantoprazole Sodium 80 mg/ (Sodium Chloride) 100 mls @ 10 mls/hr IVPB Q10H [facility] Stop: 04/12/20 18:54 Last Admin: 04/11/20 10:04 Dose: 10 mls/hr Documented by: Multivitamins/Minerals 10 ml/Sterile Water/ Amino Acids/Dextrose 2,552.85 mls @ 106.369 mls/hr IV DAILY@1600 [facility] Stop: 04/11/20 15:59 Last Admin: 04/10/20 21:08 Dose: 106.369 mls/hr Documented by: Piperacillin Sod/Tazobactam (Sod 3.375 gm/ Dextrose) 50 mls @ 100 mls/hr IVPB Q8H-IV [facility]; Protocol Last Admin: 04/11/20 09:47 Dose: 100 mls/hr Documented by: Multivitamins/Minerals 10 ml/Potassium Phosphate 20 mm/Sterile Water/ Amino Acids/Dextrose 1,600 mls @ 66.67 mls/hr IV DAILY@1600 [facility] Fat Emulsion-Soy/MCT/[place]/Fish Oil (Smoflipid 20% Iv Fat Emulsion) 250 mls @ 20.833 mls/hr IV DAILY@2200 [facility] Morphine Sulfate (Morphine Sulfate) 3 mg IVPUSH Q4H PRN PRN Reason: PAIN LEVEL 6-10 Mupirocin (Bactroban Ointment (For Decolonization) -) 1 applic NS BID [facility] Stop: 04/14/20 21:59 Last Admin: 04/11/20 09:47 Dose: 1 applic Documented by: Ondansetron HCl (Zofran Injection) 4 mg IVPUSH Q6H PRN PRN Reason: NAUSEA - Objective Vital Signs: Vital Signs Temperature 99.2 F 04/11/20 10:00 Pulse Rate 63 04/11/20 12:00 Respiratory Rate 18 04/11/20 12:00 Blood Pressure 150/96 04/11/20 12:00 O2 Sat by Pulse Oximetry (%) 94 L 04/11/20 09:59 Constitutional: Yes: Calm Eyes: Yes: Conjunctiva Clear HENT: Yes: Atraumatic Neck: Yes: Supple Cardiovascular: Yes: S1, S2 Respiratory: Yes: CTA Bilaterally Gastrointestinal: Yes: Soft, Other (héctor in place) Musculoskeletal: Yes: Muscle Weakness Edema: No Neurological: Yes: Oriented Psychiatric: Yes: Oriented Labs: CBC, BMP 04/11/20 05:30 04/11/20 05:30 INR, PTT INR 1.62 (0.83-1.09) H 04/09/20 09:00 Problem List - Problems (1) Cocaine abuse Code(s): F14.10 - COCAINE ABUSE, UNCOMPLICATED (2) Marijuana abuse Code(s): F12.10 - CANNABIS ABUSE, UNCOMPLICATED (3) Opiate dependence Code(s): F11.20 - OPIOID DEPENDENCE, UNCOMPLICATED (4) Perforated chronic gastric ulcer Code(s): K25.5 - CHRONIC OR UNSPECIFIED GASTRIC ULCER WITH PERFORATION Assessment/Plan Current Medications Generic Name Dose Route Start Last Admin Trade Name Freq PRN Reason Stop Dose Admin Acetaminophen 1,000 mg 04/10/20 16:59 04/11/20 02:37 Ofirmev Injection - IVPB 04/11/20 22:00 1,000 mg Q6H PRN Administration PAIN Chlorhexidine Gluconate 1 applic 04/09/20 22:00 04/10/20 21:12 Hibiclens For Decolonization - TP 1 applic HS [facility] Administration Enoxaparin Sodium 40 mg 04/10/20 10:00 04/11/20 09:47 Lovenox - SQ 40 mg DAILY [facility] Administration Pantoprazole Sodium 80 mg/ 100 mls @ 10 mls/hr 04/09/20 19:00 04/11/20 10:04 Sodium Chloride IVPB 04/12/20 18:54 10 mls/hr Q10H [facility] Administration 8 MG/HR Multivitamins/Minerals 10 ml/ 2,552.85 mls @ 106.369 mls/hr 04/10/20 16:00 04/10/20 21:08 Sterile Water/ Amino Acids/ IV 04/11/20 15:59 106.369 mls/hr Dextrose DAILY@1600 [facility] Administration Piperacillin Sod/Tazobactam 50 mls @ 100 mls/hr 04/10/20 18:00 04/11/20 09:47 Sod 3.375 gm/ Dextrose IVPB 100 mls/hr Q8H-IV [facility] Administration Protocol Multivitamins/Minerals 10 ml/ 1,600 mls @ 66.67 mls/hr 04/11/20 16:00 Potassium Phosphate 20 mm/ IV Sterile Water/ Amino Acids/ DAILY@1600 [facility] Dextrose Fat Emulsion-Soy/MCT/[place]/Fish Oil 250 mls @ 20.833 mls/hr 04/11/20 22:00 Smoflipid 20% Iv Fat Emulsion IV DAILY@2200 [facility] Morphine Sulfate 3 mg 04/11/20 11:43 Morphine Sulfate IVPUSH Q4H PRN PAIN LEVEL 6-10 Mupirocin 1 applic 04/09/20 22:00 04/11/20 09:47 Bactroban Ointment (For Decolonization) - NS 04/14/20 21:59 1 applic BID [facility] Administration Ondansetron HCl 4 mg 04/09/20 18:50 Zofran Injection IVPUSH Q6H PRN NAUSEA Impression 1. perforated duodenal ulcer 2. polysubstacne use 3. npo for 1 week 4. s/p surgery for ruptured duodenal ulcer Plan - tpn orders written - repeat labs in am - surgery follow up - pt is going to be npo for another week - discussed with dietary
--- NOTE | 2020-04-11 14:33 | PN ---
Progress Note, Physician History of Present Illness: stable no new issues improving - Current Medication List Current Medications: Active Medications Acetaminophen (Ofirmev Injection -) 1,000 mg IVPB Q6H PRN PRN Reason: PAIN Stop: 04/11/20 22:00 Last Admin: 04/11/20 02:37 Dose: 1,000 mg Documented by: Chlorhexidine Gluconate (Hibiclens For Decolonization -) 1 applic TP HS [facility] Last Admin: 04/10/20 21:12 Dose: 1 applic Documented by: Enoxaparin Sodium (Lovenox -) 40 mg SQ DAILY [facility] Last Admin: 04/11/20 09:47 Dose: 40 mg Documented by: Pantoprazole Sodium 80 mg/ (Sodium Chloride) 100 mls @ 10 mls/hr IVPB Q10H [facility] Stop: 04/12/20 18:54 Last Admin: 04/11/20 10:04 Dose: 10 mls/hr Documented by: Multivitamins/Minerals 10 ml/Sterile Water/ Amino Acids/Dextrose 2,552.85 mls @ 106.369 mls/hr IV DAILY@1600 [facility] Stop: 04/11/20 15:59 Last Admin: 04/10/20 21:08 Dose: 106.369 mls/hr Documented by: Piperacillin Sod/Tazobactam (Sod 3.375 gm/ Dextrose) 50 mls @ 100 mls/hr IVPB Q8H-IV [facility]; Protocol Last Admin: 04/11/20 09:47 Dose: 100 mls/hr Documented by: Multivitamins/Minerals 10 ml/Potassium Phosphate 20 mm/Sterile Water/ Amino Acids/Dextrose 1,600 mls @ 66.67 mls/hr IV DAILY@1600 [facility] Fat Emulsion-Soy/MCT/[place]/Fish Oil (Smoflipid 20% Iv Fat Emulsion) 250 mls @ 20.833 mls/hr IV DAILY@2200 [facility] Morphine Sulfate (Morphine Sulfate) 3 mg IVPUSH Q4H PRN PRN Reason: PAIN LEVEL 6-10 Mupirocin (Bactroban Ointment (For Decolonization) -) 1 applic NS BID [facility] Stop: 04/14/20 21:59 Last Admin: 04/11/20 09:47 Dose: 1 applic Documented by: Ondansetron HCl (Zofran Injection) 4 mg IVPUSH Q6H PRN PRN Reason: NAUSEA - Objective Vital Signs: Vital Signs Temperature 99.2 F 04/11/20 10:00 Pulse Rate 63 04/11/20 12:00 Respiratory Rate 18 04/11/20 12:00 Blood Pressure 150/96 04/11/20 12:00 O2 Sat by Pulse Oximetry (%) 94 L 04/11/20 09:59 Constitutional: Yes: No Distress, Calm Cardiovascular: Yes: S1, S2 Respiratory: Yes: Regular, CTA Bilaterally Gastrointestinal: Yes: Soft, Other (absent bowel sounds) Musculoskeletal: Yes: WNL Extremities: Yes: WNL Neurological: Yes: Alert, Oriented Psychiatric: Yes: Alert, Oriented Labs: CBC, BMP 04/11/20 05:30 04/11/20 05:30 INR, PTT INR 1.62 (0.83-1.09) H 04/09/20 09:00 Assessment/Plan Problem List - Problems (1) Pneumoperitoneum Code(s): K66.8 - OTHER SPECIFIED DISORDERS OF PERITONEUM (2) Cocaine abuse Code(s): F14.10 - COCAINE ABUSE, UNCOMPLICATED (3) Hydronephrosis Code(s): N13.30 - UNSPECIFIED HYDRONEPHROSIS (4) Leukocytosis Code(s): D72.829 - ELEVATED WHITE BLOOD CELL COUNT, UNSPECIFIED (5) Leukocytosis Code(s): D72.829 - ELEVATED WHITE BLOOD CELL COUNT, UNSPECIFIED (6) Marijuana abuse Code(s): F12.10 - CANNABIS ABUSE, UNCOMPLICATED (7) Opiate dependence Code(s): F11.20 - OPIOID DEPENDENCE, UNCOMPLICATED Assessment/Plan POD # Exploratory laparotomy, vern patch of perforated ulcer, drainage of ascites, lavage due to a perforated ulcer at anterior pylorus/duodenal bulb Leukocytosis Polysubstance Use -Maintain NGT tpn continue empiric abx rest as per the team wbc trending down
[2020-04-11] MEDS ORDERED: PT OWN MED DRAWER 7, Y5N ONE (16:21)
[2020-04-11] MEDS: [UNRECOGNIZED DRUG - OTHER] IV SCH (16:22)
[2020-04-11] MEDS: MULTIVIT IV SCH (16:22)
[2020-04-11] MEDS: POTASSIUM PHOSPHATE IV SCH (16:22)
[2020-04-11] MEDS: CHLORHEXIDINE GLUCONATE 4% CLEANSER FOR DECOLONIZATION TP SCH (21:30)
[2020-04-11] MEDS: FAT EMUL/SOY/MCT/OLIV/FISH OIL 250 ML IV SCH (21:31)
[2020-04-12] MEDS ORDERED: ACETAMINOPHEN 1000 MG/100 ML VIAL (NON FORMULARY) IVPB ONE (00:23)
[2020-04-12] MEDS: PIPERACILLIN/TAZOB 3.375 GM 3.375 GM in DEXTROSE 5%-WATER - 50 ML IVPB SCH (02:00)
[2020-04-12] MEDS ORDERED: PIPERACILLIN/TAZOBACTAM 3.375 GM VIAL IVPB ONE ×2 (02:19→09:03)
[2020-04-12] MEDS ORDERED: DEXTROSE 5%-WATER - 50 ML IVPB ONE ×2 (02:20→09:03)
[2020-04-12] MEDS ORDERED: ONDANSETRON 4 MG/2 ML VIAL IVPUSH PRN (04:29)
[2020-04-12] MEDS: PANTOPRAZOLE SODIUM 80 MG in SODIUM CHLORIDE 100 ML IVPB SCH ×2 (06:15→16:57)
[2020-04-12] MEDS: morphine SULFATE 4 MG/ML VIAL IVPUSH PRN ×2 (06:17→22:46)
[2020-04-12 08:42] LABS: HEMATOCRIT 40.4 % (35.4-49); HEMOGLOBIN 13.8 GM/dL (11.7-16.9); MCH 28.5 pg (25.7-33.7); MCHC 34.3 g/dl (32.0-35.9); MEAN CELL VOLUME 83.3 fl (80-96); MEAN PLT VOLUME 7.2 fl (7.5-11.1); PLATELET COUNT 347 K/MM3 (134-434); RBC 4.85 M/mm3 (4.00-5.60); RDW 14.7 % (11.9-15.9); WHITE BLOOD COUNT 9.6 K/mm3 (4.0-10.0)
--- NOTE | 2020-04-12 08:49 | PN ---
Progress Note (short form) - Note Progress Note: surgery pt seen and examined. still pain free. no complaints. ngt minimal. rajiv serous. flatus afebrile abd-soft, nt, incision clean Laboratory Tests 04/12/20 06:00 WBC 9.6 Plan- 1) Pod#3- cont npo, ngt (4 more days), ivf, rajiv. 2) perforated ulcer pre-pyloric/duodenal bulb- cont zosyn, cont drain, follow gram stain and culture. diflucan stopped as no yeast seen on gram stain. wbc now normal. cont protonix drip and ngt. 3) prophylaxis- lovenox, oob, spirometer, 4) nutrition-should be eating by Friday. agree with tpn.
[2020-04-12 09:02] LABS: CALCIUM 8.8 mg/dL (8.5-10.1); CREATININE 0.7 mg/dL (0.55-1.3); PHOSPHOROUS 3.5 mg/dL (2.5-4.9); POTASSIUM 3.8 mmol/L (3.5-5.1)
[2020-04-12] MEDS: ENOXAPARIN NA (PORCINE) 40 MG/0.4 ML DISP.SYRIN SQ SCH (09:19)
[2020-04-12] MEDS ORDERED: PIPERACILLIN/TAZOB 3.375 GM 3.375 GM in DEXTROSE 5%-WATER - 50 ML IVPB SCH (10:00)
[2020-04-12] MEDS ORDERED: MUPIROCIN 2% TOPICAL OINTMENT FOR DECOLONIZATION NS SCH (10:00)
[2020-04-12 10:26] LABS: MAGNESIUM 2.3 mg/dL (1.8-2.4)
--- NOTE | 2020-04-12 11:02 | PN ---
Progress Note, Physician History of Present Illness: stable no new issues doing well - Current Medication List Current Medications: Active Medications Enoxaparin Sodium (Lovenox -) 40 mg SQ DAILY [facility] Last Admin: 04/12/20 09:19 Dose: 40 mg Documented by: Multivitamins/Minerals 10 ml/Potassium Phosphate 20 mm/Sterile Water/ Amino Acids/Dextrose 1,600 mls @ 66.67 mls/hr IV DAILY@1600 [facility] Stop: 04/12/20 16:00 Last Admin: 04/11/20 16:22 Dose: 66.67 mls/hr Documented by: Fat Emulsion-Soy/MCT/[place]/Fish Oil (Smoflipid 20% Iv Fat Emulsion) 250 mls @ 20.833 mls/hr IV DAILY@2200 [facility] Last Admin: 04/11/20 21:31 Dose: 20.833 mls/hr Documented by: Pantoprazole Sodium 80 mg/ (Sodium Chloride) 100 mls @ 10 mls/hr IVPB Q10H [facility] Stop: 04/12/20 18:54 Last Admin: 04/12/20 06:15 Dose: 10 mls/hr Documented by: Piperacillin Sod/Tazobactam (Sod 3.375 gm/ Dextrose) 50 mls @ 100 mls/hr IVPB Q8H-IV [facility]; Protocol Last Admin: 04/12/20 09:19 Dose: 100 mls/hr Documented by: Multivitamins/Minerals 10 ml/Potassium Phosphate 20 mm/Sterile Water/ Amino Acids/Dextrose 1,700 mls @ 70.8 mls/hr IV DAILY@1600 [facility] Morphine Sulfate (Morphine Sulfate) 3 mg IVPUSH Q4H PRN PRN Reason: PAIN LEVEL 6-10 Last Admin: 04/12/20 06:17 Dose: 3 mg Documented by: Ondansetron HCl (Zofran Injection) 4 mg IVPUSH Q6H PRN PRN Reason: NAUSEA - Objective Vital Signs: Vital Signs Temperature 98.6 F 04/12/20 10:00 Pulse Rate 60 04/12/20 10:00 Respiratory Rate 20 04/12/20 10:00 Blood Pressure 170/99 04/12/20 10:00 O2 Sat by Pulse Oximetry (%) 97 04/12/20 10:00 Constitutional: Yes: No Distress, Calm Cardiovascular: Yes: S1, S2 Respiratory: Yes: Regular, CTA Bilaterally Gastrointestinal: Yes: Soft, Hypoactive Bowel Sounds, Other (ng in place) Musculoskeletal: Yes: WNL Extremities: Yes: WNL Neurological: Yes: Alert, Oriented Psychiatric: Yes: Alert, Oriented Labs: CBC, BMP 04/12/20 06:00 04/12/20 06:00 INR, PTT INR 1.62 (0.83-1.09) H 04/09/20 09:00 Assessment/Plan Problem List - Problems (1) Pneumoperitoneum Code(s): K66.8 - OTHER SPECIFIED DISORDERS OF PERITONEUM (2) Cocaine abuse Code(s): F14.10 - COCAINE ABUSE, UNCOMPLICATED (3) Hydronephrosis Code(s): N13.30 - UNSPECIFIED HYDRONEPHROSIS (4) Leukocytosis Code(s): D72.829 - ELEVATED WHITE BLOOD CELL COUNT, UNSPECIFIED (5) Leukocytosis Code(s): D72.829 - ELEVATED WHITE BLOOD CELL COUNT, UNSPECIFIED (6) Marijuana abuse Code(s): F12.10 - CANNABIS ABUSE, UNCOMPLICATED (7) Opiate dependence Code(s): F11.20 - OPIOID DEPENDENCE, UNCOMPLICATED Assessment/Plan POD # Exploratory laparotomy, vern patch of perforated ulcer, drainage of ascites, lavage due to a perforated ulcer at anterior pylorus/duodenal bulb Leukocytosis Polysubstance Use -Maintain NGT tpn can stop abx and monitor rest as per the team
--- NOTE | 2020-04-12 11:08 | PN ---
Progress Note (short form) - Note Progress Note: S: No acute events. Occasional tolerable pain. JOSE 10cc, NGT minimal output. No complaints today. Encouraged incentive spirometer use. Passing flatus Vital Signs Temperature 98.6 F 04/12/20 10:00 Pulse Rate 60 04/12/20 10:00 Respiratory Rate 20 04/12/20 10:00 Blood Pressure 170/99 04/12/20 10:00 O2 Sat by Pulse Oximetry (%) 97 04/12/20 10:00 PE: GENERAL: Awake, alert, and fully oriented, in no acute distress. HEENT: NC/AT, MARK, L eye amblyopia, L Nare NGT, dry mucosa NECK: No JVD. LUNGS: CTA bilaterally. No wheezes, and no crackles. No accessory muscle use. On RA HEART: RRR, normal S1 and S2 without murmur ABDOMEN: soft, midline incision C/D/I closed with hcétor, RUQ JOSE drain with serosanguinous 10cc fluid, + BS, minimal tenderness around surgical incisions. EXTREMITIES: 2+ pulses, No peripheral edema. CBC, BMP 04/12/20 06:00 04/12/20 06:00 Microbiology 04/09/20 17:46 Tissue-Other Gram Stain - Final 04/09/20 17:46 Tissue-Other Tissue Culture - Preliminary NO AEROBIC GROWTH, 24 HRS 04/09/20 21:28 Blood - Peripheral Venous Blood Culture - Preliminary NO GROWTH OBTAINED AFTER 24 HOURS, INCUBATION TO CONTINUE FOR 4 DAYS. 04/09/20 21:31 Blood - Peripheral Venous Blood Culture - Preliminary NO GROWTH OBTAINED AFTER 24 HOURS, INCUBATION TO CONTINUE FOR 4 DAYS. Active Medications Enoxaparin Sodium (Lovenox -) 40 mg SQ DAILY [facility] Last Admin: 04/12/20 09:19 Dose: 40 mg Documented by: Multivitamins/Minerals 10 ml/Potassium Phosphate 20 mm/Sterile Water/ Amino Acids/Dextrose 1,600 mls @ 66.67 mls/hr IV DAILY@1600 [facility] Stop: 04/12/20 16:00 Last Admin: 04/11/20 16:22 Dose: 66.67 mls/hr Documented by: Fat Emulsion-Soy/MCT/[place]/Fish Oil (Smoflipid 20% Iv Fat Emulsion) 250 mls @ 20.833 mls/hr IV DAILY@2200 [facility] Last Admin: 04/11/20 21:31 Dose: 20.833 mls/hr Documented by: Pantoprazole Sodium 80 mg/ (Sodium Chloride) 100 mls @ 10 mls/hr IVPB Q10H [facility] Stop: 04/12/20 18:54 Last Admin: 04/12/20 06:15 Dose: 10 mls/hr Documented by: Piperacillin Sod/Tazobactam (Sod 3.375 gm/ Dextrose) 50 mls @ 100 mls/hr IVPB Q8H-IV [facility]; Protocol Last Admin: 04/12/20 09:19 Dose: 100 mls/hr Documented by: Multivitamins/Minerals 10 ml/Potassium Phosphate 20 mm/Sterile Water/ Amino Acids/Dextrose 1,700 mls @ 70.8 mls/hr IV DAILY@1600 [facility] Morphine Sulfate (Morphine Sulfate) 3 mg IVPUSH Q4H PRN PRN Reason: PAIN LEVEL 6-10 Last Admin: 04/12/20 06:17 Dose: 3 mg Documented by: Ondansetron HCl (Zofran Injection) 4 mg IVPUSH Q6H PRN PRN Reason: NAUSEA A/P: Bowel Perforation likely 2/2 cocaine mesenteric ischemia Leukocytosis Polysubstance Use --General surgery on board --NGT and JOSE x1 week (ends Monday 04/16; NGT pulled friday) --Nourishment via PPN to continue; renewed today; monitor mineral and lipid levels --Continue Zosyn 3.375gm q8h IV for gram negative and anaerobic coverage --Continue Protonix gtt --Tylenol and Morphine PRN --Rest per surgical recommendations --Incentive spirometer to continue DVT PPX - SCDs Dispo: M/S Preston Tadeo DO - IM
--- NOTE | 2020-04-12 13:15 | PN ---
Progress Note, Physician History of Present Illness: Pt seen and examined at bedside. He denies shortness of breath. - Current Medication List Current Medications: Active Medications Enoxaparin Sodium (Lovenox -) 40 mg SQ DAILY [facility] Last Admin: 04/12/20 09:19 Dose: 40 mg Documented by: Multivitamins/Minerals 10 ml/Potassium Phosphate 20 mm/Sterile Water/ Amino Acids/Dextrose 1,600 mls @ 66.67 mls/hr IV DAILY@1600 [facility] Stop: 04/12/20 16:00 Last Admin: 04/11/20 16:22 Dose: 66.67 mls/hr Documented by: Fat Emulsion-Soy/MCT/[place]/Fish Oil (Smoflipid 20% Iv Fat Emulsion) 250 mls @ 20.833 mls/hr IV DAILY@2200 [facility] Last Admin: 04/11/20 21:31 Dose: 20.833 mls/hr Documented by: Pantoprazole Sodium 80 mg/ (Sodium Chloride) 100 mls @ 10 mls/hr IVPB Q10H [facility] Stop: 04/12/20 18:54 Last Admin: 04/12/20 06:15 Dose: 10 mls/hr Documented by: Multivitamins/Minerals 10 ml/Potassium Phosphate 20 mm/Sterile Water/ Amino Acids/Dextrose 1,700 mls @ 70.8 mls/hr IV DAILY@1600 [facility] Morphine Sulfate (Morphine Sulfate) 3 mg IVPUSH Q4H PRN PRN Reason: PAIN LEVEL 6-10 Last Admin: 04/12/20 06:17 Dose: 3 mg Documented by: Ondansetron HCl (Zofran Injection) 4 mg IVPUSH Q6H PRN PRN Reason: NAUSEA - Objective Vital Signs: Vital Signs Temperature 98.6 F 04/12/20 10:00 Pulse Rate 60 04/12/20 10:00 Respiratory Rate 20 04/12/20 10:00 Blood Pressure 170/99 04/12/20 10:00 O2 Sat by Pulse Oximetry (%) 97 04/12/20 10:00 Constitutional: Yes: Calm Eyes: Yes: Conjunctiva Clear HENT: Yes: Atraumatic Cardiovascular: Yes: S1, S2 Respiratory: Yes: CTA Bilaterally Gastrointestinal: Yes: Soft Musculoskeletal: Yes: WNL Edema: No Integumentary: Yes: WNL Neurological: Yes: Oriented Psychiatric: Yes: Oriented Labs: CBC, BMP 04/12/20 06:00 04/12/20 06:00 INR, PTT INR 1.62 (0.83-1.09) H 04/09/20 09:00 Problem List - Problems (1) Cocaine abuse Code(s): F14.10 - COCAINE ABUSE, UNCOMPLICATED (2) Marijuana abuse Code(s): F12.10 - CANNABIS ABUSE, UNCOMPLICATED (3) Opiate dependence Code(s): F11.20 - OPIOID DEPENDENCE, UNCOMPLICATED (4) Perforated chronic gastric ulcer Code(s): K25.5 - CHRONIC OR UNSPECIFIED GASTRIC ULCER WITH PERFORATION Assessment/Plan Current Medications Generic Name Dose Route Start Last Admin Trade Name Freq PRN Reason Stop Dose Admin Enoxaparin Sodium 40 mg 04/12/20 10:00 04/12/20 09:19 Lovenox - SQ 40 mg DAILY [facility] Administration Multivitamins/Minerals 10 ml/ 1,600 mls @ 66.67 mls/hr 04/11/20 16:00 04/11/20 16:22 Potassium Phosphate 20 mm/ IV 04/12/20 16:00 66.67 mls/hr Sterile Water/ Amino Acids/ DAILY@1600 ERIKA Administration Dextrose Fat Emulsion-Soy/MCT/[place]/Fish Oil 250 mls @ 20.833 mls/hr 04/11/20 22:00 21:31 Smoflipid 20% Iv Fat Emulsion IV 20.833 mls/hr DAILY@2200 ERIKA Administration Pantoprazole Sodium 80 mg/ 100 mls @ 10 mls/hr 04/12/20 07:00 04/12/20 06:15 Sodium Chloride IVPB 04/12/20 18:54 10 mls/hr Q10H ERIKA Administration 8 MG/HR Multivitamins/Minerals 10 ml/ 1,700 mls @ 70.8 mls/hr 04/12/20 16:00 Potassium Phosphate 20 mm/ IV Sterile Water/ Amino Acids/ DAILY@1600 ERIKA Dextrose Morphine Sulfate 3 mg 04/11/20 11:43 04/12/20 06:17 Morphine Sulfate IVPUSH 3 mg Q4H PRN Administration PAIN LEVEL 6-10 Ondansetron HCl 4 mg 04/12/20 04:29 Zofran Injection IVPUSH Q6H PRN NAUSEA Impression 1. perforated duodenal ulcer 2. polysubstacne use 3. npo for 1 week 4. s/p surgery for ruptured duodenal ulcer Plan - tpn written - labs reviewed - discussed with dietary - lipids today, will hold tomorrow - am labs - pt npo until Friday
[2020-04-12] MEDS: MULTIVIT IV SCH (15:16)
[2020-04-12] MEDS: [UNRECOGNIZED DRUG - OTHER] IV SCH (15:16)
[2020-04-12] MEDS: POTASSIUM PHOSPHATE IV SCH (15:16)
[2020-04-12] MEDS ORDERED: POTASSIUM PHOSPHATE IV SCH (16:00)
[2020-04-12] MEDS ORDERED: MULTIVIT IV SCH (16:00)
[2020-04-12] MEDS ORDERED: [UNRECOGNIZED DRUG - OTHER] IV SCH (16:00)
[2020-04-12] MEDS: FAT EMUL/SOY/MCT/OLIV/FISH OIL 250 ML IV SCH (21:09)
[2020-04-12] MEDS ORDERED: CHLORHEXIDINE GLUCONATE 4% CLEANSER FOR DECOLONIZATION TP SCH (22:00)
[2020-04-13] MEDS ORDERED: hydrALAZINE HCL 20 MG/ML VIAL IVPUSH ONE ×2 (01:00→18:48)
[2020-04-13] MEDS: PANTOPRAZOLE SODIUM 80 MG in SODIUM CHLORIDE 100 ML IVPB SCH ×2 (06:01→14:10)
--- NOTE | 2020-04-13 08:18 | PN ---
Progress Note, Physician History of Present Illness: stable ng tube drained a lot soreness in the abdomen - Current Medication List Current Medications: Active Medications Enoxaparin Sodium (Lovenox -) 40 mg SQ DAILY [facility] Last Admin: 04/12/20 09:19 Dose: 40 mg Documented by: Fat Emulsion-Soy/MCT/[place]/Fish Oil (Smoflipid 20% Iv Fat Emulsion) 250 mls @ 20.833 mls/hr IV DAILY@2200 [facility] Last Admin: 04/12/20 21:09 Dose: 20.833 mls/hr Documented by: Multivitamins/Minerals 10 ml/Potassium Phosphate 20 mm/Sterile Water/ Amino Acids/Dextrose 1,700 mls @ 70.8 mls/hr IV DAILY@1600 [facility] Last Admin: 04/12/20 15:15 Dose: 70.8 mls/hr Documented by: Pantoprazole Sodium 80 mg/ (Sodium Chloride) 100 mls @ 10 mls/hr IVPB Q10H [facility] Stop: 04/16/20 04:57 Last Admin: 04/13/20 06:01 Dose: 10 mls/hr Documented by: Morphine Sulfate (Morphine Sulfate) 3 mg IVPUSH Q4H PRN PRN Reason: PAIN LEVEL 6-10 Last Admin: 04/12/20 22:46 Dose: 3 mg Documented by: Ondansetron HCl (Zofran Injection) 4 mg IVPUSH Q6H PRN PRN Reason: NAUSEA - Objective Vital Signs: Vital Signs Temperature 98.8 F 04/13/20 07:44 Pulse Rate 77 04/13/20 07:44 Respiratory Rate 20 04/13/20 07:44 Blood Pressure 156/99 04/13/20 07:44 O2 Sat by Pulse Oximetry (%) 77 L 04/13/20 07:44 Constitutional: Yes: Calm, Mild Distress Cardiovascular: Yes: S1, S2 Respiratory: Yes: Regular, CTA Bilaterally Gastrointestinal: Yes: Hypoactive Bowel Sounds, Other (ng tube in place) Musculoskeletal: Yes: WNL Extremities: Yes: WNL Neurological: Yes: Alert, Oriented Psychiatric: Yes: Alert, Oriented Labs: CBC, BMP 04/12/20 06:00 INR, PTT INR 1.62 (0.83-1.09) H 04/09/20 09:00 Assessment/Plan Problem List - Problems (1) Pneumoperitoneum Code(s): K66.8 - OTHER SPECIFIED DISORDERS OF PERITONEUM (2) Cocaine abuse Code(s): F14.10 - COCAINE ABUSE, UNCOMPLICATED (3) Hydronephrosis Code(s): N13.30 - UNSPECIFIED HYDRONEPHROSIS (4) Leukocytosis Code(s): D72.829 - ELEVATED WHITE BLOOD CELL COUNT, UNSPECIFIED (5) Leukocytosis Code(s): D72.829 - ELEVATED WHITE BLOOD CELL COUNT, UNSPECIFIED (6) Marijuana abuse Code(s): F12.10 - CANNABIS ABUSE, UNCOMPLICATED (7) Opiate dependence Code(s): F11.20 - OPIOID DEPENDENCE, UNCOMPLICATED Assessment/Plan POD # Exploratory laparotomy, vern patch of perforated ulcer, drainage of ascites, lavage due to a perforated ulcer at anterior pylorus/duodenal bulb Leukocytosis Polysubstance Use -Maintain NGT tpn off of abx will monitor rest as per the team
[2020-04-13 08:23] LABS: ALBUMIN 2.6 g/dl (3.4-5.0); BILIRUBIN,TOTAL 0.3 mg/dL (0.2-1); BLOOD UREA NITROGEN 20.6 mg/dL (7-18); CALCIUM 8.7 mg/dL (8.5-10.1); CREATININE 0.8 mg/dL (0.55-1.3); MAGNESIUM 2.4 mg/dL (1.8-2.4); PHOSPHOROUS 3.7 mg/dL (2.5-4.9); POTASSIUM 3.8 mmol/L (3.5-5.1); TOT PROT 6.3 g/dl (6.4-8.2)
[2020-04-13] MEDS: ENOXAPARIN NA (PORCINE) 40 MG/0.4 ML DISP.SYRIN SQ SCH (09:46)
--- NOTE | 2020-04-13 12:15 | PN ---
Progress Note (short form) - Note Progress Note: Surgery: Pt states that he passed some flatus yesterday. No complaints of abd pain. No nausea or emesis. Vital Signs Period Temp Pulse Resp BP Sys/Nuno Pulse Ox Last 24 Hr 98.1 F-98.8 F 53-77 18-20 130-173/78-108 77-97 JOSE: 15ml serosangrenous NGT: 850 ml bilious material GEN: A&0x3, NAD ABD: soft, non-distended, inc tenderness. Inc c/d/i with héctor CBC, BMP 04/12/20 06:00 04/13/20 06:00 A/p: 49 yo male s/p Grahm patch for perforated ulcer, drainage of ascites/lav age, POD#4 Continue NPO/IV hydration with clinimax OOB and ambulate.. DVT ppx with lovenox SQ NGT decompression at minimum until Friday IV protonix wili D/w Dr. Young
--- NOTE | 2020-04-13 12:52 | PN ---
Progress Note (short form) - Note Progress Note: S: No acute events. Occasional tolerable pain. NGT minimal output. No complaints today. Vital Signs Temperature 98.1 F 04/13/20 09:18 Pulse Rate 71 04/13/20 09:18 Respiratory Rate 18 04/13/20 09:18 Blood Pressure 157/78 04/13/20 09:18 O2 Sat by Pulse Oximetry (%) 94 L 04/13/20 09:18 PE: GENERAL: Awake, alert, and fully oriented, in no acute distress. HEENT: NC/AT, MARK, L eye amblyopia, L Nare NGT, dry mucosa NECK: No JVD. LUNGS: CTA bilaterally. No wheezes, and no crackles. No accessory muscle use. On RA HEART: RRR, normal S1 and S2 without murmur ABDOMEN: soft, midline incision C/D/I closed with héctor, RUQ JOSE drain with serosanguinous, + BS, tenderness improving around surgical incisions. EXTREMITIES: 2+ pulses, No peripheral edema. CBC, BMP 04/12/20 06:00 04/13/20 06:00 Microbiology 04/09/20 17:46 Tissue-Other Gram Stain - Final 04/09/20 17:46 Tissue-Other Tissue Culture - Preliminary NO AEROBIC GROWTH, 24 HRS 04/09/20 21:28 Blood - Peripheral Venous Blood Culture - Preliminary NO GROWTH OBTAINED AFTER 24 HOURS, INCUBATION TO CONTINUE FOR 4 DAYS. 04/09/20 21:31 Blood - Peripheral Venous Blood Culture - Preliminary NO GROWTH OBTAINED AFTER 24 HOURS, INCUBATION TO CONTINUE FOR 4 DAYS. Active Medications Enoxaparin Sodium (Lovenox -) 40 mg SQ DAILY [facility] Last Admin: 04/12/20 09:19 Dose: 40 mg Documented by: Multivitamins/Minerals 10 ml/Potassium Phosphate 20 mm/Sterile Water/ Amino Acids/Dextrose 1,600 mls @ 66.67 mls/hr IV DAILY@1600 [facility] Stop: 04/12/20 16:00 Last Admin: 04/11/20 16:22 Dose: 66.67 mls/hr Documented by: Fat Emulsion-Soy/MCT/[place]/Fish Oil (Smoflipid 20% Iv Fat Emulsion) 250 mls @ 20.833 mls/hr IV DAILY@2200 [facility] Last Admin: 04/11/20 21:31 Dose: 20.833 mls/hr Documented by: Pantoprazole Sodium 80 mg/ (Sodium Chloride) 100 mls @ 10 mls/hr IVPB Q10H [facility] Stop: 04/12/20 18:54 Last Admin: 04/12/20 06:15 Dose: 10 mls/hr Documented by: Piperacillin Sod/Tazobactam (Sod 3.375 gm/ Dextrose) 50 mls @ 100 mls/hr IVPB Q8H-IV [facility]; Protocol Last Admin: 04/12/20 09:19 Dose: 100 mls/hr Documented by: Multivitamins/Minerals 10 ml/Potassium Phosphate 20 mm/Sterile Water/ Amino Acids/Dextrose 1,700 mls @ 70.8 mls/hr IV DAILY@1600 [facility] Morphine Sulfate (Morphine Sulfate) 3 mg IVPUSH Q4H PRN PRN Reason: PAIN LEVEL 6-10 Last Admin: 04/12/20 06:17 Dose: 3 mg Documented by: Ondansetron HCl (Zofran Injection) 4 mg IVPUSH Q6H PRN PRN Reason: NAUSEA A/P: Bowel Perforation likely 2/2 cocaine mesenteric ischemia Leukocytosis Polysubstance Use --General surgery on board --NGT and JOSE x1 week (ends Monday 04/16; NGT pulled friday) --Nourishment via PPN to continue; renewed today; monitor mineral and lipid levels --Continue Zosyn 3.375gm q8h IV for gram negative and anaerobic coverage --Continue Protonix gtt --Tylenol and Morphine PRN --Rest per surgical recommendations --Incentive spirometer to continue DVT PPX - SCDs Dispo: M/S DO [facility]
--- NOTE | 2020-04-13 12:54 | PN ---
Progress Note (short form) - Note Progress Note: surgery pt seen and examined. still pain free. no complaints. ngt 800l. rajiv serous. flatus afebrile abd-soft, nt, incision clean Plan- 1) Pod#4- cont npo, ngt (3 more days), ivf, rajiv. 2) perforated ulcer pre-pyloric/duodenal bulb- abx stopped, cont drain, culture strep salivarus. diflucan stopped as no yeast seen on gram stain. wbc now normal. cont protonix drip and ngt. 3) prophylaxis- lovenox, oob, spirometer, 4) nutrition-should be eating by Friday. agree with tpn.
[2020-04-13] MEDS: morphine SULFATE 4 MG/ML VIAL IVPUSH PRN (13:43)
--- NOTE | 2020-04-13 15:19 | PN ---
Progress Note, Physician History of Present Illness: Pt seen and examined at bedside. He is awake and alert. He denies abd pain. - Current Medication List Current Medications: Active Medications Enoxaparin Sodium (Lovenox -) 40 mg SQ DAILY [facility] Last Admin: 04/13/20 09:46 Dose: 40 mg Documented by: Fat Emulsion-Soy/MCT/[place]/Fish Oil (Smoflipid 20% Iv Fat Emulsion) 250 mls @ 20.833 mls/hr IV DAILY@2200 [facility] Stop: 04/13/20 15:59 Last Admin: 04/12/20 21:09 Dose: 20.833 mls/hr Documented by: Multivitamins/Minerals 10 ml/Potassium Phosphate 20 mm/Sterile Water/ Amino Acids/Dextrose 1,700 mls @ 70.8 mls/hr IV DAILY@1600 [facility] Stop: 04/13/20 15:59 Last Admin: 04/12/20 15:15 Dose: 70.8 mls/hr Documented by: Pantoprazole Sodium 80 mg/ (Sodium Chloride) 100 mls @ 10 mls/hr IVPB Q10H [facility] Stop: 04/16/20 04:57 Last Admin: 04/13/20 14:10 Dose: 10 mls/hr Documented by: Multivitamins/Minerals 10 ml/Potassium Chloride 20 meq/Sterile Water/ Amino Acids/Dextrose 2,000 mls @ 83.333 mls/hr IV DAILY@1600 [facility] Morphine Sulfate (Morphine Sulfate) 3 mg IVPUSH Q4H PRN PRN Reason: PAIN LEVEL 6-10 Last Admin: 04/13/20 13:43 Dose: 3 mg Documented by: Ondansetron HCl (Zofran Injection) 4 mg IVPUSH Q6H PRN PRN Reason: NAUSEA - Objective Vital Signs: Vital Signs Temperature 99.0 F 04/13/20 14:44 Pulse Rate 67 04/13/20 14:44 Respiratory Rate 18 04/13/20 14:44 Blood Pressure 158/94 04/13/20 14:44 O2 Sat by Pulse Oximetry (%) 94 L 04/13/20 09:18 Constitutional: Yes: Calm Eyes: Yes: Conjunctiva Clear HENT: Yes: Atraumatic Neck: Yes: Supple Cardiovascular: Yes: S1, S2 Respiratory: Yes: CTA Bilaterally Gastrointestinal: Yes: Normal Bowel Sounds, Soft, Other (héctor in place) Genitourinary: Yes: WNL Musculoskeletal: Yes: WNL Edema: No Neurological: Yes: Oriented Psychiatric: Yes: Oriented Labs: CBC, BMP 04/12/20 06:00 04/13/20 06:00 INR, PTT INR 1.62 (0.83-1.09) H 04/09/20 09:00 Problem List - Problems (1) Cocaine abuse Code(s): F14.10 - COCAINE ABUSE, UNCOMPLICATED (2) Marijuana abuse Code(s): F12.10 - CANNABIS ABUSE, UNCOMPLICATED (3) Opiate dependence Code(s): F11.20 - OPIOID DEPENDENCE, UNCOMPLICATED (4) Perforated chronic gastric ulcer Code(s): K25.5 - CHRONIC OR UNSPECIFIED GASTRIC ULCER WITH PERFORATION Assessment/Plan Current Medications Generic Name Dose Route Start Last Admin Trade Name Freq PRN Reason Stop Dose Admin Enoxaparin Sodium 40 mg 04/12/20 10:00 04/13/20 09:46 Lovenox - SQ 40 mg DAILY [facility] Administration Fat Emulsion-Soy/MCT/[place]/Fish Oil 250 mls @ 20.833 mls/hr 04/11/20 22:00 04/12/20 21:09 Smoflipid 20% Iv Fat Emulsion IV 04/13/20 15:59 20.833 mls/hr DAILY@2200 [facility] Administration Multivitamins/Minerals 10 ml/ 1,700 mls @ 70.8 mls/hr 04/12/20 16:00 04/12/20 15:15 Potassium Phosphate 20 mm/ IV 04/13/20 15:59 70.8 mls/hr Sterile Water/ Amino Acids/ DAILY@1600 [facility] Administration Dextrose Pantoprazole Sodium 80 mg/ 100 mls @ 10 mls/hr 04/13/20 05:00 04/13/20 14:10 Sodium Chloride IVPB 04/16/20 04:57 10 mls/hr Q10H [facility] Administration 8 MG/HR Multivitamins/Minerals 10 ml/ 2,000 mls @ 83.333 mls/hr 04/13/20 16:00 Potassium Chloride 20 meq/ IV Sterile Water/ Amino Acids/ DAILY@1600 [facility] Dextrose Morphine Sulfate 3 mg 04/11/20 11:43 04/13/20 13:43 Morphine Sulfate IVPUSH 3 mg Q4H PRN Administration PAIN LEVEL 6-10 Ondansetron HCl 4 mg 04/12/20 04:29 Zofran Injection IVPUSH Q6H PRN NAUSEA Impression 1. perforated duodenal ulcer 2. polysubstacne use 3. npo for 1 week 4. s/p surgery for ruptured duodenal ulcer Plan - wrote new tpn orders - repeat labs in am - check lipids in am - discussed with dietary - pt npo until Friday
[2020-04-13] MEDS: POTASSIUM CHLORIDE IV SCH (16:52)
[2020-04-13] MEDS: MULTIVIT IV SCH (16:52)
[2020-04-13] MEDS: [UNRECOGNIZED DRUG - OTHER] IV SCH (16:52)
[2020-04-14] MEDS ORDERED: PT OWN MED DRAWER 7, Y5N ONE ×2 (00:12→17:17)
[2020-04-14] MEDS: morphine SULFATE 4 MG/ML VIAL IVPUSH PRN ×2 (00:15→23:08)
[2020-04-14] MEDS: PANTOPRAZOLE SODIUM 80 MG in SODIUM CHLORIDE 100 ML IVPB SCH ×3 (00:32→23:04)
[2020-04-14 08:09] LABS: BASO % 0.4 % (0-2.0); EOS % 2.2 % (0-4.5); HEMATOCRIT 43.6 % (35.4-49); HEMOGLOBIN 14.7 GM/dL (11.7-16.9); LYMPH % 13.8 % (8-40); MCHC 33.7 g/dl (32.0-35.9); MEAN CELL VOLUME 83.2 fl (80-96); MEAN PLT VOLUME 6.6 fl (7.5-11.1); NEUT % 75.6 % (42.8-82.8); PLATELET COUNT 442 K/MM3 (134-434); RBC 5.24 M/mm3 (4.00-5.60); RDW 15.3 % (11.9-15.9); WHITE BLOOD COUNT 13.5 K/mm3 (4.0-10.0)
[2020-04-14 08:26] LABS: ALBUMIN 2.8 g/dl (3.4-5.0); BILIRUBIN,TOTAL 0.4 mg/dL (0.2-1); BLOOD UREA NITROGEN 21.5 mg/dL (7-18); CALCIUM 9.3 mg/dL (8.5-10.1); CREATININE 0.7 mg/dL (0.55-1.3); MAGNESIUM 2.3 mg/dL (1.8-2.4); PHOSPHOROUS 3.5 mg/dL (2.5-4.9); POTASSIUM 3.8 mmol/L (3.5-5.1); TOT PROT 6.3 g/dl (6.4-8.2)
[2020-04-14] MEDS: ENOXAPARIN NA (PORCINE) 40 MG/0.4 ML DISP.SYRIN SQ SCH (09:54)
--- NOTE | 2020-04-14 10:06 | PN ---
Progress Note, Physician History of Present Illness: stable no new issues - Current Medication List Current Medications: Active Medications Enoxaparin Sodium (Lovenox -) 40 mg SQ DAILY [facility] Last Admin: 04/14/20 09:54 Dose: 40 mg Documented by: Pantoprazole Sodium 80 mg/ (Sodium Chloride) 100 mls @ 10 mls/hr IVPB Q10H [facility] Stop: 04/16/20 04:57 Last Admin: 04/14/20 00:32 Dose: 10 mls/hr Documented by: Multivitamins/Minerals 10 ml/Potassium Chloride 20 meq/Sterile Water/ Amino Acids/Dextrose 2,000 mls @ 83.333 mls/hr IV DAILY@1600 [facility] Last Admin: 04/13/20 16:52 Dose: 83.333 mls/hr Documented by: Morphine Sulfate (Morphine Sulfate) 3 mg IVPUSH Q4H PRN PRN Reason: PAIN LEVEL 6-10 Last Admin: 04/14/20 00:15 Dose: 3 mg Documented by: Ondansetron HCl (Zofran Injection) 4 mg IVPUSH Q6H PRN PRN Reason: NAUSEA - Objective Vital Signs: Vital Signs Temperature 98.8 F 04/14/20 06:00 Pulse Rate 65 04/14/20 06:00 Respiratory Rate 18 04/14/20 06:00 Blood Pressure 153/94 04/14/20 06:00 O2 Sat by Pulse Oximetry (%) 95 04/14/20 06:00 Constitutional: Yes: No Distress, Calm Cardiovascular: Yes: S1, S2 Respiratory: Yes: Regular, CTA Bilaterally Gastrointestinal: Yes: Soft, Hypoactive Bowel Sounds, Other (ng in place) Musculoskeletal: Yes: WNL Extremities: Yes: WNL Neurological: Yes: Alert, Oriented Psychiatric: Yes: Alert, Oriented Labs: CBC, BMP 04/14/20 07:05 04/14/20 07:05 INR, PTT INR 1.62 (0.83-1.09) H 04/09/20 09:00 Assessment/Plan Problem List - Problems (1) Pneumoperitoneum Code(s): K66.8 - OTHER SPECIFIED DISORDERS OF PERITONEUM (2) Cocaine abuse Code(s): F14.10 - COCAINE ABUSE, UNCOMPLICATED (3) Hydronephrosis Code(s): N13.30 - UNSPECIFIED HYDRONEPHROSIS (4) Leukocytosis Code(s): D72.829 - ELEVATED WHITE BLOOD CELL COUNT, UNSPECIFIED (5) Leukocytosis Code(s): D72.829 - ELEVATED WHITE BLOOD CELL COUNT, UNSPECIFIED (6) Marijuana abuse Code(s): F12.10 - CANNABIS ABUSE, UNCOMPLICATED (7) Opiate dependence Code(s): F11.20 - OPIOID DEPENDENCE, UNCOMPLICATED Assessment/Plan POD # Exploratory laparotomy, vern patch of perforated ulcer, drainage of ascites, lavage due to a perforated ulcer at anterior pylorus/duodenal bulb Leukocytosis Polysubstance Use -Maintain NGT tpn off of abx will monitor rest as per the team
--- NOTE | 2020-04-14 13:17 | PN ---
Progress Note, Physician History of Present Illness: Pt seen and examined at bedside. He is awake and alert. he denies abdominal pain. - Current Medication List Current Medications: Active Medications Enoxaparin Sodium (Lovenox -) 40 mg SQ DAILY [facility] Last Admin: 04/14/20 09:54 Dose: 40 mg Documented by: Pantoprazole Sodium 80 mg/ (Sodium Chloride) 100 mls @ 10 mls/hr IVPB Q10H [facility] Stop: 04/16/20 04:57 Last Admin: 04/14/20 11:35 Dose: 10 mls/hr Documented by: Multivitamins/Minerals 10 ml/Potassium Chloride 20 meq/Sterile Water/ Amino Acids/Dextrose 2,000 mls @ 83.333 mls/hr IV DAILY@1600 [facility] Last Admin: 04/13/20 16:52 Dose: 83.333 mls/hr Documented by: Morphine Sulfate (Morphine Sulfate) 3 mg IVPUSH Q4H PRN PRN Reason: PAIN LEVEL 6-10 Last Admin: 04/14/20 00:15 Dose: 3 mg Documented by: Ondansetron HCl (Zofran Injection) 4 mg IVPUSH Q6H PRN PRN Reason: NAUSEA - Objective Vital Signs: Vital Signs Temperature 97.8 F 04/14/20 10:00 Pulse Rate 65 04/14/20 10:00 Respiratory Rate 04/14/20 10:00 Blood Pressure 152/98 04/14/20 10:00 O2 Sat by Pulse Oximetry (%) 96 04/14/20 10:00 Constitutional: Yes: Calm Eyes: Yes: Conjunctiva Clear HENT: Yes: Atraumatic Neck: Yes: Supple Cardiovascular: Yes: S1, S2 Respiratory: Yes: CTA Bilaterally Gastrointestinal: Yes: Normal Bowel Sounds, Soft, Other (héctor in place) Genitourinary: Yes: WNL Musculoskeletal: Yes: WNL Edema: No Neurological: Yes: Oriented Psychiatric: Yes: Oriented Labs: CBC, BMP 04/14/20 07:05 04/14/20 07:05 INR, PTT INR 1.62 (0.83-1.09) H 04/09/20 09:00 Problem List - Problems (1) Cocaine abuse Code(s): F14.10 - COCAINE ABUSE, UNCOMPLICATED (2) Marijuana abuse Code(s): F12.10 - CANNABIS ABUSE, UNCOMPLICATED (3) Opiate dependence Code(s): F11.20 - OPIOID DEPENDENCE, UNCOMPLICATED (4) Perforated chronic gastric ulcer Code(s): K25.5 - CHRONIC OR UNSPECIFIED GASTRIC ULCER WITH PERFORATION Assessment/Plan Current Medications Generic Name Dose Route Start Last Admin Trade Name Freq PRN Reason Stop Dose Admin Enoxaparin Sodium 40 mg 04/12/20 10:00 04/14/20 09:54 Lovenox - SQ 40 mg DAILY [facility] Administration Pantoprazole Sodium 80 mg/ 100 mls @ 10 mls/hr 04/13/20 05:00 04/14/20 11:35 Sodium Chloride IVPB 04/16/20 04:57 10 mls/hr Q10H [facility] Administration 8 MG/HR Multivitamins/Minerals 10 ml/ 2,000 mls @ 83.333 mls/hr 04/13/20 16:00 04/13/20 16:52 Potassium Chloride 20 meq/ IV 83.333 mls/hr Sterile Water/ Amino Acids/ DAILY@1600 [facility] Administration Dextrose Morphine Sulfate 3 mg 04/11/20 11:43 04/14/20 00:15 Morphine Sulfate IVPUSH 3 mg Q4H PRN Administration PAIN LEVEL 6-10 Ondansetron HCl 4 mg 04/12/20 04:29 Zofran Injection IVPUSH Q6H PRN NAUSEA Impression 1. perforated duodenal ulcer 2. polysubstacne use 3. npo for 1 week 4. s/p surgery for ruptured duodenal ulcer Plan - tpn orders written - repeat labs in am - 2 liters volume today - discussed with dietary - lipids ordered for today - pt npo until Friday
--- NOTE | 2020-04-14 13:35 | PN ---
Physical Exam: SUBJECTIVE: Patient seen and examined OBJECTIVE: Vital Signs Period Temp Pulse Resp BP Sys/Nuno Pulse Ox Last 24 Hr 97.8 F-99.3 F 62-80 18-20 146-160/89-107 94-96 GENERAL: The patient is awake, alert, and fully oriented, in no acute distress. HEENT: At/NC, PERRLA LUNGS: Breath sounds equal, clear to auscultation bilaterally, no wheezes, no crackles, no accessory muscle use. HEART: Regular rate and rhythm, S1, S2 without murmur, rub or gallop. ABDOMEN: soft, midline incision C/D/I closed with héctor, RUQ JOSE drain with minimal serosanguinous, + BS, tenderness improving around surgical incisions EXTREMITIES: 2+ pulses, warm, well-perfused, no edema. PSYCH: Normal mood, normal affect. Laboratory Results - last 24 hr 04/13/20 04/14/20 04/14/20 17:38 07:05 07:05 WBC 13.5 H RBC 5.24 Hgb 14.7 Hct 43.6 MCV 83.2 MCH 28.0 MCHC 33.7 RDW 15.3 Plt Count 442 H D MPV 6.6 L Absolute Neuts (auto) 10.2 H Neutrophils % 75.6 Lymphocytes % 13.8 D Monocytes % 8.0 Eosinophils % 2.2 D Basophils % 0.4 Nucleated RBC % 0 Sodium 140 Potassium 3.8 Chloride 104 Carbon Dioxide 26 Anion Gap 9 BUN 21.5 H Creatinine 0.7 Est GFR (CKD-EPI)AfAm 126.64 Est GFR (CKD-EPI)NonAf 109.27 POC Glucometer 118 Random Glucose 112 H Calcium 9.3 Phosphorus 3.5 Magnesium 2.3 Total Bilirubin 0.4 AST 19 ALT 28 Alkaline Phosphatase 102 Total Protein 6.3 L Albumin 2.8 L Triglycerides 90 Cholesterol 150 Total LDL Cholesterol 112 H HDL Cholesterol 30 L Active Medications Generic Name Dose Route Start Last Admin Trade Name Freq PRN Reason Stop Dose Admin Enoxaparin Sodium 40 mg 04/12/20 10:00 04/14/20 09:54 Lovenox - SQ 40 mg DAILY [facility] Administration Pantoprazole Sodium 80 mg/ 100 mls @ 10 mls/hr 04/13/20 05:00 04/14/20 11:35 Sodium Chloride IVPB 04/16/20 04:57 10 mls/hr Q10H [facility] Administration 8 MG/HR Multivitamins/Minerals 10 ml/ 2,000 mls @ 83.333 mls/hr 04/13/20 16:00 04/13/20 16:52 Potassium Chloride 20 meq/ IV 83.333 mls/hr Sterile Water/ Amino Acids/ DAILY@1600 [facility] Administration Dextrose Morphine Sulfate 3 mg 04/11/20 11:43 04/14/20 00:15 Morphine Sulfate IVPUSH 3 mg Q4H PRN Administration PAIN LEVEL 6-10 Ondansetron HCl 4 mg 04/12/20 04:29 Zofran Injection IVPUSH Q6H PRN NAUSEA ASSESSMENT/PLAN: 49 yo Man with hx of substance use (cocaine and marijuana) who presented to the ED with sudden onset distention and abdominal pain and was found to have perforated duodenal ulcer # Perforated Duodenal Ulcer s/p exploratory laparotomy, vern patch procedure of perforated ulcer, drainage of ascites, lavage on 04/09/[address], JOSE drain with minimal drainage on TPN till friday OOB, incentive spirometry Pain management as indicated off Abx has WBC elevated today remains afebrile, stable VS CXR unremarkable case discussed with ID ID following nephrology folllowing Surgery following polysubstance abuse HTN DVT prophylaxis with SCD Visit type - Emergency Visit Emergency Visit: Yes ED Registration Date: 04/09/20 Care time: The patient presented to the Emergency Department on the above date and was hospitalized for further evaluation of their emergent condition. - New Patient This patient is new to me today: Yes Date on this admission: 04/14/20 - Critical Care Critical Care patient: No - Discharge Referral Referred to [facility] No
--- NOTE | 2020-04-14 13:52 | PN ---
Progress Note (short form) - Note Progress Note: surgery pt seen and examined. still pain free. no complaints. ngt 800l. rajiv serous. flatus afebrile abd-soft, nt, incision clean Plan- 1) Pod#5- cont npo, ngt now with higher output. ?temporary gastric outlet obstruction. NGT needs to stay in minimal till Friday night but derek only remove if output drops below 300 per 24 hours. cont rajiv. 2) perforated ulcer pre-pyloric/duodenal bulb- abx stopped, cont drain, culture strep salivarus. diflucan stopped as no yeast seen on gram stain. cont protonix drip and ngt. wbc chrissy today. being followed by ID. hopefull returns to normal. otherwise may need to repeat CT Friday to look for a drainable collection. 3) prophylaxis- lovenox, oob, spirometer, 4) nutrition-possibly eating by Friday. agree with tpn. Dr. Quiñones covering Till Friday. [phone]
[2020-04-14] MEDS: [UNRECOGNIZED DRUG - OTHER] IV SCH (17:19)
[2020-04-14] MEDS: MULTIVIT IV SCH (17:19)
[2020-04-14] MEDS: POTASSIUM CHLORIDE IV SCH (17:19)
[2020-04-14] MEDS: FAT EMULSION/OLIVE/SOY/PHOSPHO 250 ML IV SCH (23:10)
[2020-04-15 07:48] LABS: BASO % 0.3 % (0-2.0); EOS % 1.1 % (0-4.5); HEMATOCRIT 43.6 % (35.4-49); HEMOGLOBIN 14.5 GM/dL (11.7-16.9); LYMPH % 11.3 % (8-40); MCH 27.3 pg (25.7-33.7); MCHC 33.3 g/dl (32.0-35.9); MEAN PLT VOLUME 6.5 fl (7.5-11.1); MONO % 6.2 % (3.8-10.2); NEUT % 81.1 % (42.8-82.8); PLATELET COUNT 493 K/MM3 (134-434); RBC 5.32 M/mm3 (4.00-5.60); RDW 14.8 % (11.9-15.9); WHITE BLOOD COUNT 17.2 K/mm3 (4.0-10.0)
[2020-04-15 08:08] LABS: BILIRUBIN,TOTAL 0.3 mg/dL (0.2-1); BLOOD UREA NITROGEN 22.6 mg/dL (7-18); CREATININE 0.8 mg/dL (0.55-1.3); MAGNESIUM 2.2 mg/dL (1.8-2.4); PHOSPHOROUS 3.2 mg/dL (2.5-4.9); TOT PROT 6.6 g/dl (6.4-8.2)
[2020-04-15] MEDS: PANTOPRAZOLE SODIUM 80 MG in SODIUM CHLORIDE 100 ML IVPB SCH ×2 (09:18→17:50)
[2020-04-15] MEDS: morphine SULFATE 4 MG/ML VIAL IVPUSH PRN ×3 (09:18→23:49)
[2020-04-15] MEDS: ENOXAPARIN NA (PORCINE) 40 MG/0.4 ML DISP.SYRIN SQ SCH (09:31)
--- NOTE | 2020-04-15 13:34 | PN ---
Progress Note (short form) - Note Progress Note: RENAL Pt had a BM feels well Last Vital Signs Temp Pulse Resp BP Pulse Ox 98.5 F 85 20 158/100 97 04/15/20 10:00 04/15/20 10:00 04/15/20 10:00 04/15/20 10:00 04/15/20 10:00 lungs clear cvs s1s2 rr abd soft, bowel sounds present wound clean and dry ext no edema neuro a+ox3 CBC, BMP 04/15/20 06:37 04/15/20 06:37 Current Medications Generic Name Dose Route Start Last Admin Trade Name Freq PRN Reason Stop Dose Admin Enoxaparin Sodium 40 mg 04/12/20 10:00 04/15/20 09:31 Lovenox - SQ 40 mg DAILY [facility] Administration Pantoprazole Sodium 80 mg/ 100 mls @ 10 mls/hr 04/13/20 05:00 04/15/20 09:18 Sodium Chloride IVPB 04/16/20 04:57 10 mls/hr Q10H [facility] Administration 8 MG/HR Multivitamins/Minerals 10 ml/ 2,000 mls @ 83.333 mls/hr 04/13/20 16:00 04/14/20 17:19 Potassium Chloride 20 meq/ IV 83.333 mls/hr Sterile Water/ Amino Acids/ DAILY@1600 [facility] Administration Dextrose Fat Emulsion-[place] Oil/Soybean Oil 250 mls @ 20.833 mls/hr 04/14/20 22:00 04/14/20 23:10 Clinolipid 20% Iv Fat Emulsion IV 20.833 mls/hr DAILY@2200 [facility] Administration Morphine Sulfate 3 mg 04/11/20 11:43 04/15/20 09:18 Morphine Sulfate IVPUSH 3 mg Q4H PRN Administration PAIN LEVEL 6-10 Ondansetron HCl 4 mg 04/12/20 04:29 Zofran Injection IVPUSH Q6H PRN NAUSEA IMPRESSION 1. perforated duodenal ulcer 2. polysubstacne use 3. npo for 1 week 4. s/p surgery for ruptured duodenal ulcer Plan - repeat labs in am - 2 liters volume today - pt npo until Friday - add extra ivf given rise in bun and fluid drainage MV
[2020-04-15] MEDS: LACTATED RINGERS SOLUTION 1,000 ML/1,000 ML INFUS.BAG IV SCH (15:27)
--- NOTE | 2020-04-15 16:30 | PN ---
Progress Note, Physician Chief Complaint: No acute events History of Present Illness: 49 Year old Male with polysubstance use disorder (Cocaine, Marijuana) presented with 2 days of worsening generalized abdominal pain with sudden onset of distention. On CXR, pneumoperitoneum was noted. CT AP showed moderate-large p neumoperitoneum, and a small-moderate amount of free fluid within the pelvis and upper abdomen; Nonspecific fluid-filled small bowel dilatation is seen which could be on the basis of an ileus versus distal small bowel obstruction. Mild to moderate fluid-filled gastric distention is also seen. Mild nonspecific left hydronephrosis. Patient underwent exploratory laparotomy, vern patch procedure of perforated ulcer, drainage of ascites, lavage for perforated viscus and ascites. Betsey was found to have perforated ulcer at anterior pylorus/duodenal bulb, ascites with exudate. Tylenol and Morphine were given for pain. Zosyn 3.375gm Q8H(04/10) and Flucanazole 200 mg daily (04/09). - Current Medication List Current Medications: Active Medications Enoxaparin Sodium (Lovenox -) 40 mg SQ DAILY [facility] Last Admin: 04/15/20 09:31 Dose: 40 mg Documented by: Pantoprazole Sodium 80 mg/ (Sodium Chloride) 100 mls @ 10 mls/hr IVPB Q10H [facility] Stop: 04/16/20 04:57 Last Admin: 04/15/20 09:18 Dose: 10 mls/hr Documented by: Multivitamins/Minerals 10 ml/Potassium Chloride 20 meq/Sterile Water/ Amino Acids/Dextrose 2,000 mls @ 83.333 mls/hr IV DAILY@1600 [facility] Last Admin: 04/14/20 17:19 Dose: 83.333 mls/hr Documented by: Fat Emulsion-[place] Oil/Soybean Oil (Clinolipid 20% Iv Fat Emulsion) 250 mls @ 20.833 mls/hr IV DAILY@2200 [facility] Last Admin: 04/14/20 23:10 Dose: 20.833 mls/hr Documented by: Lactated Ringer's (Lactated Ringers Solution) 1,000 ml in 1,000 mls @ 50 mls/hr IV ASDIR [facility] Last Admin: 04/15/20 15:27 Dose: 50 mls/hr Documented by: Morphine Sulfate (Morphine Sulfate) 3 mg IVPUSH Q4H PRN PRN Reason: PAIN LEVEL 6-10 Last Admin: 04/15/20 15:28 Dose: 3 mg Documented by: Ondansetron HCl (Zofran Injection) 4 mg IVPUSH Q6H PRN PRN Reason: NAUSEA - Objective Vital Signs: Vital Signs Temperature 98.5 F 04/15/20 10:00 Pulse Rate 85 04/15/20 10:00 Respiratory Rate 20 04/15/20 10:00 Blood Pressure 158/100 04/15/20 10:00 O2 Sat by Pulse Oximetry (%) 97 04/15/20 10:00 Constitutional: Yes: Well Nourished, No Distress, Calm Eyes: Yes: WNL, Conjunctiva Clear, EOM Intact HENT: Yes: WNL, Atraumatic, Normocephalic Neck: Yes: WNL, Supple Cardiovascular: Yes: WNL, Regular Rate and Rhythm Respiratory: Yes: WNL, Regular, CTA Bilaterally Gastrointestinal: Yes: WNL, Normal Bowel Sounds, Soft Genitourinary: Yes: WNL Musculoskeletal: Yes: WNL Extremities: Yes: WNL Edema: No Peripheral Pulses WNL: Yes Integumentary: Yes: WNL Neurological: Yes: WNL, Alert, Oriented ...Motor Strength: WNL Psychiatric: Yes: WNL, Alert, Oriented Labs: CBC, BMP 04/15/20 06:37 04/15/20 06:37 INR, PTT INR 1.62 (0.83-1.09) H 04/09/20 09:00 Impression/Plan Impression/Plan: 49 Year old Male with polysubstance use disorder (Cocaine, Marijuana) presented with 2 days of worsening generalized abdominal pain with sudden onset of distention. On CXR, pneumoperitoneum was noted. CT AP showed moderate-large pneumoperiton eum, and a small-moderate amount of free fluid within the pelvis and upper abdomen; Nonspecific fluid-filled small bowel dilatation is seen which could be on the basis of an ileus versus distal small bowel obstruction. Mild to moderate fluid-filled gastric distention is also seen. Mild nonspecific left hydronephrosis. Patient underwent exploratory laparotomy, vern patch procedure of perforated ulcer, drainage of ascites, lavage for perforated viscus and ascites. Paitent was found to have perforated ulcer at anterior pylorus/duodenal bulb, ascites with exudate. Tylenol and Morphine were given for pain. Zosyn 3.375gm Q8H(04/10) and Flucanazole 200 mg daily (04/09). Plan (1) Pneumoperitoneum Code(s): K66.8 - OTHER SPECIFIED DISORDERS OF PERITONEUM Bowel Perforation likely 2/2 cocaine mesenteric ischemia Leukocytosis Polysubstance Use S/p OR Zosyn 3.375gm and Flucanazole -Do not remove NGT x 1 week -Strict NPO -Strict I/O -Trend and replete lytes -IV Fluid -Keep hgb>7, Plt>10 -Incentive spirometer # Nausea/vomiting Zofran prn Pantoprazole for PUD prophylaxsis (2) Cocaine abuse Code(s): F14.10 - COCAINE ABUSE, UNCOMPLICATED (3) Hydronephrosis Code(s): N13.30 - UNSPECIFIED HYDRONEPHROSIS (4) Leukocytosis Code(s): D72.829 - ELEVATED WHITE BLOOD CELL COUNT, UNSPECIFIED (5) Marijuana abuse Code(s): F12.10 - CANNABIS ABUSE, UNCOMPLICATED (6) Opiate dependence Code(s): F11.20 - OPIOID DEPENDENCE, UNCOMPLICATED Dispo: Patient full code #DVT prophylaxsis SCDs/SQ Lovenox Visit type - Emergency Visit Emergency Visit: Yes ED Registration Date: 04/09/20 Care time: The patient presented to the Emergency Department on the above date and was hospitalized for further evaluation of their emergent condition. - New Patient This patient is new to me today: Yes Date on this admission: 04/15/20 - Critical Care Critical Care patient: No - Discharge Referral Referred to [facility] No
[2020-04-15] MEDS: POTASSIUM CHLORIDE IV SCH (17:50)
[2020-04-15] MEDS: [UNRECOGNIZED DRUG - OTHER] IV SCH (17:50)
[2020-04-15] MEDS: MULTIVIT IV SCH (17:50)
--- NOTE | 2020-04-15 21:19 | PN ---
Progress Note, Physician History of Present Illness: Events noted. WBC rising, occasional mild temp elevations, Tmax 99.4F. Remains NPO. No acute distress. Had BM, without abdominal pain. - Current Medication List Current Medications: Active Medications Enoxaparin Sodium (Lovenox -) 40 mg SQ DAILY [facility] Last Admin: 04/15/20 09:31 Dose: 40 mg Documented by: Pantoprazole Sodium 80 mg/ (Sodium Chloride) 100 mls @ 10 mls/hr IVPB Q10H [facility] Stop: 04/16/20 04:57 Last Admin: 04/15/20 17:50 Dose: 10 mls/hr Documented by: Multivitamins/Minerals 10 ml/Potassium Chloride 20 meq/Sterile Water/ Amino Ac ids/Dextrose 2,000 mls @ 83.333 mls/hr IV DAILY@1600 [facility] Last Admin: 04/15/20 17:50 Dose: 83.333 mls/hr Documented by: Fat Emulsion-[place] Oil/Soybean Oil (Clinolipid 20% Iv Fat Emulsion) 250 mls @ 20.833 mls/hr IV DAILY@2200 [facility] Last Admin: 04/14/20 23:10 Dose: 20.833 mls/hr Documented by: Lactated Ringer's (Lactated Ringers Solution) 1,000 ml in 1,000 mls @ 50 mls/hr IV ASDIR [facility] Last Admin: 04/15/20 15:27 Dose: 50 mls/hr Documented by: Ampicillin Sodium/Sulbactam (Sodium 3 gm/ Sodium Chloride) 100 mls @ 200 mls/hr IVPB Q6H-IV [facility] Morphine Sulfate (Morphine Sulfate) 3 mg IVPUSH Q4H PRN PRN Reason: PAIN LEVEL 6-10 Last Admin: 04/15/20 15:28 Dose: 3 mg Documented by: Ondansetron HCl (Zofran Injection) 4 mg IVPUSH Q6H PRN PRN Reason: NAUSEA - Objective Vital Signs: Vital Signs Temperature 98.5 F 04/15/20 10:00 Pulse Rate 85 04/15/20 10:00 Respiratory Rate 20 04/15/20 10:00 Blood Pressure 158/100 04/15/20 10:00 O2 Sat by Pulse Oximetry (%) 97 04/15/20 10:00 Constitutional: Yes: No Distress Cardiovascular: Yes: Regular Rate and Rhythm Respiratory: Yes: Regular Gastrointestinal: Yes: Normal Bowel Sounds, Soft Integumentary: Yes: WNL Neurological: Yes: Alert Labs: CBC, BMP 04/15/20 06:37 04/15/20 06:37 INR, PTT INR 1.62 (0.83-1.09) H 04/09/20 09:00 Laboratory Last Values WBC 17.2 K/mm3 (4.0-10.0) H 04/15/20 06:37 RBC 5.32 M/mm3 (4.00-5.60) 04/15/20 06:37 Hgb 14.5 GM/dL (11.7-16.9) 04/15/20 06:37 Hct 43.6 % (35.4-49) 04/15/20 06:37 MCV 82.0 fl (80-96) 04/15/20 06:37 MCH 27.3 pg (25.7-33.7) 04/15/20 06:37 MCHC 33.3 g/dl (32.0-35.9) 04/15/20 06:37 RDW 14.8 % (11.9-15.9) 04/15/20 06:37 Plt Count 493 K/MM3 (134-434) H 04/15/20 06:37 MPV 6.5 fl (7.5-11.1) L 04/15/20 06:37 Absolute Neuts (auto) 13.9 K/mm3 (1.5-8.0) H 04/15/20 06:37 Neutrophils % 81.1 % (42.8-82.8) 04/15/20 06:37 Neutrophils % (Manual) 81.6 % (42.8-82.8) 04/09/20 09:00 Band Neutrophils % 1.0 % 04/09/20 09:00 Lymphocytes % 11.3 % (8-40) 04/15/20 06:37 Lymphocytes % (Manual) 8.2 % (8-40) 04/09/20 09:00 Monocytes % 6.2 % (3.8-10.2) 04/15/20 06:37 Monocytes % (Manual) 6 % (3.8-10.2) 04/09/20 09:00 Eosinophils % 1.1 % (0-4.5) 04/15/20 06:37 Eosinophils % (Manual) 0.0 % (0-4.5) 04/09/20 09:00 Basophils % 0.3 % (0-2.0) 04/15/20 06:37 Basophils % (Manual) 0.0 % (0-2.0) 04/09/20 09:00 Myelocytes % (Man) 0 % (0-2) 04/09/20 09:00 Promyelocytes % (Man) 0 % (0-2) 04/09/20 09:00 Blast Cells % (Manual) 0 % (0-0) 04/09/20 09:00 Nucleated RBC % 0 % (0-0) 04/15/20 06:37 Metamyelocytes 0 % (0-2) 04/09/20 09:00 Hypochromia 0 04/09/20 09:00 Platelet Estimate Normal 04/09/20 09:00 Polychromasia 0 04/09/20 09:00 Poikilocytosis 0 04/09/20 09:00 Anisocytosis 0 04/09/20 09:00 Microcytosis 0 04/09/20 09:00 Macrocytosis 0 04/09/20 09:00 PT with INR 19.20 SEC (9.7-13.0) H 04/09/20 09:00 INR 1.62 (0.83-1.09) H 04/09/20 09:00 PTT (Actin FS) 35.1 SECONDS (25.2-36.5) 04/09/20 09:00 Sodium 136 mmol/L (136-145) 04/15/20 06:37 Potassium 4.0 mmol/L (3.5-5.1) 04/15/20 06:37 Chloride 104 mmol/L (98-107) 04/15/20 06:37 Carbon Dioxide 25 mmol/L (21-32) 04/15/20 06:37 Anion Gap 7 MMOL/L (8-16) L 04/15/20 06:37 BUN 22.6 mg/dL (7-18) H 04/15/20 06:37 Creatinine 0.8 mg/dL (0.55-1.3) 04/15/20 06:37 Est GFR (CKD-EPI)AfAm 119.88 04/15/20 06:37 Est GFR (CKD-EPI)NonAf 103.43 04/15/20 06:37 POC Glucometer 118 UNITS (80-120) 04/13/20 17:38 Random Glucose 114 mg/dL (74-106) H 04/15/20 06:37 Lactic Acid 1.2 mmol/L (0.4-2.0) 04/09/20 09:00 Calcium 9.0 mg/dL (8.5-10.1) 04/15/20 06:37 Phosphorus 3.2 mg/dL (2.5-4.9) 04/15/20 06:37 Magnesium 2.2 mg/dL (1.8-2.4) 04/15/20 06:37 Total Bilirubin 0.3 mg/dL (0.2-1) 04/15/20 06:37 Direct Bilirubin 0.2 mg/dL (0.0-0.2) 04/10/20 14:35 AST 34 U/L (15-37) 04/15/20 06:37 ALT 54 U/L (13-61) 04/15/20 06:37 Alkaline Phosphatase 135 U/L (45-117) H 04/15/20 06:37 Creatine Kinase 95 U/L (26-308) 04/09/20 09:00 Troponin I < 0.02 ng/ml (0.00-0.05) 04/09/20 09:00 Total Protein 6.6 g/dl (6.4-8.2) 04/15/20 06:37 Albumin 3.0 g/dl (3.4-5.0) L 04/15/20 06:37 Triglycerides 90 mg/dL (0-150) 04/14/20 07:05 Cholesterol 150 mg/dL (50-200) 04/14/20 07:05 Total LDL Cholesterol 112 mg/dL (5-100) H 04/14/20 07:05 HDL Cholesterol 30 mg/dL (40-60) L 04/14/20 07:05 Lipase 89 U/L (73-393) 04/09/20 09:00 Serum Folate 4 ng/mL (3.1-17.5) 04/10/20 14:35 Urine Color Yellow 04/09/20 12:55 Urine Appearance Clear 04/09/20 12:55 Urine pH 6.0 (5.0-8.0) 04/09/20 12:55 Ur Specific [place] 1.008 (1.010-1.035) L 04/09/20 12:55 Urine Protein Trace (NEGATIVE) 04/09/20 12:55 Urine Glucose (UA) Negative (NEGATIVE) 04/09/20 12:55 Urine Ketones Negative (NEGATIVE) 04/09/20 12:55 Urine Blood Negative (NEGATIVE) 04/09/20 12:55 Urine Nitrite Negative (NEGATIVE) 04/09/20 12:55 Urine Bilirubin Negative (NEGATIVE) 04/09/20 12:55 Urine Urobilinogen 0.2 mg/dL (0.2-1.0) 04/09/20 12:55 Ur Leukocyte Esterase Negative (NEGATIVE) 04/09/20 12:55 Opiates Screen Positive ng/ml (ASRWFG=695) A* 04/09/20 12:55 Methadone Screen Negative ng/ml (QOMDJB=897) 04/09/20 12:55 Barbiturate Screen Negative ng/ml (DEVREW=072) 04/09/20 12:55 Phencyclidine Screen Negative ng/ml (CUTOFF=25) 04/09/20 12:55 Ur Amphetamines Screen Negative ng/ml (MOCDZX=380) 04/09/20 12:55 MDMA (Ecstasy) Screen Negative ng/ml (QCSBON=528) 04/09/20 12:55 Benzodiazepines Screen Negative ng/ml (SSCTMN=304) 04/09/20 12:55 Cocaine Screen Positive ng/ml (ICPDPB=836) A* 04/09/20 12:55 U Marijuana (THC) Screen Positive ng/ml (CUTOFF=50) A* 04/09/20 12:55 Zinc 64 mcg/L (56-134) 04/10/20 14:35 SARS-CoV-2 (PCR) Negative (Negative) 04/09/20 11:40 Blood Type A NEGATIVE 04/09/20 11:50 Antibody Screen Negative 04/09/20 11:50 Microbiology 04/09/20 21:31 Blood - Peripheral Venous Blood Culture - Final NO GROWTH AFTER 5 DAYS INCUBATION 04/09/20 21:28 Blood - Peripheral Venous Blood Culture - Final NO GROWTH AFTER 5 DAYS INCUBATION 04/09/20 17:46 Tissue-Other Gram Stain - Final 04/09/20 17:46 Tissue-Other Tissue Culture - Final Streptococcus Salivarius Strep Agalactiae Group B 04/09/20 17:46 Tissue-Other Anaerobic Culture - Final NO ANAEROBES WERE ISOLATED - ....Imaging Chest X-ray: Pending Problem List - Problems (1) Cocaine abuse Code(s): F14.10 - COCAINE ABUSE, UNCOMPLICATED (2) Hydronephrosis Code(s): N13.30 - UNSPECIFIED HYDRONEPHROSIS (3) Leukocytosis Code(s): D72.829 - ELEVATED WHITE BLOOD CELL COUNT, UNSPECIFIED (4) Marijuana abuse Code(s): F12.10 - CANNABIS ABUSE, UNCOMPLICATED (5) Opiate dependence Code(s): F11.20 - OPIOID DEPENDENCE, UNCOMPLICATED (6) Perforated chronic gastric ulcer Code(s): K25.5 - CHRONIC OR UNSPECIFIED GASTRIC ULCER WITH PERFORATION (7) Pneumoperitoneum Code(s): K66.8 - OTHER SPECIFIED DISORDERS OF PERITONEUM Assessment/Plan Pt with increasing wbc trend, mild intermittent temp elevations Labs/imaging results reviewed Will restart antibiotics, monitor wbc/vitals Surgery following
[2020-04-15] MEDS: FAT EMULSION/OLIVE/SOY/PHOSPHO 250 ML IV SCH (22:21)
[2020-04-15] MEDS: AMPICILLIN NA/SULBACTAM NA 3 GM in SODIUM CHLORIDE 100 ML IVPB SCH (22:38)
[2020-04-15 23:37] LABS: PH,URINE 5.5 (5.0-8.0); URINE APPEARANCE CLEAR; URINE BILIRUBIN NEGATIVE (NEGATIVE); URINE COLOR YELLOW; URINE GLUCOSE (UA) NEGATIVE (NEGATIVE); URINE KETONE NEGATIVE (NEGATIVE); URINE LEUK ESTERASE NEGATIVE (NEGATIVE); URINE NITRITE NEGATIVE (NEGATIVE); URINE PROTEIN TRACE (NEGATIVE)
[2020-04-16] MEDS: PANTOPRAZOLE SODIUM 80 MG in SODIUM CHLORIDE 100 ML IVPB SCH ×3 (02:44→14:55)
[2020-04-16] MEDS: AMPICILLIN NA/SULBACTAM NA 3 GM in SODIUM CHLORIDE 100 ML IVPB SCH ×4 (03:48→20:53)
[2020-04-16] MEDS ORDERED: PT OWN MED DRAWER 7, Y5N ONE ×3 (07:57→20:47)
[2020-04-16 08:06] LABS: BASO % 0.8 % (0-2.0); EOS % 1.6 % (0-4.5); HEMATOCRIT 40.3 % (35.4-49); HEMOGLOBIN 13.4 GM/dL (11.7-16.9); LYMPH % 14.1 % (8-40); MCH 27.2 pg (25.7-33.7); MCHC 33.3 g/dl (32.0-35.9); MEAN CELL VOLUME 81.7 fl (80-96); MEAN PLT VOLUME 6.5 fl (7.5-11.1); MONO % 7.7 % (3.8-10.2); NEUT % 75.8 % (42.8-82.8); PLATELET COUNT 498 K/MM3 (134-434); RBC 4.93 M/mm3 (4.00-5.60); RDW 14.5 % (11.9-15.9); WHITE BLOOD COUNT 15.7 K/mm3 (4.0-10.0)
[2020-04-16 08:34] LABS: BLOOD UREA NITROGEN 16.7 mg/dL (7-18); CALCIUM 8.7 mg/dL (8.5-10.1); CREATININE 0.7 mg/dL (0.55-1.3)
[2020-04-16] MEDS: ENOXAPARIN NA (PORCINE) 40 MG/0.4 ML DISP.SYRIN SQ SCH (10:11)
--- NOTE | 2020-04-16 11:38 | PN ---
Progress Note (short form) - Note Progress Note: RENAL coughing says he feels dry Last Vital Signs Temp Pulse Resp BP Pulse Ox 98.5 F 68 18 142/96 99 04/16/20 05:00 04/16/20 05:00 04/16/20 05:00 04/16/20 05:00 04/16/20 05:00 lungs clear cvs s1s2 rr abd soft, bowel sounds present wound clean and dry ext no edema neuro a+ox3 CBC, BMP 04/16/20 06:15 04/16/20 06:15 Current Medications Generic Name Dose Route Start Last Admin Trade Name Freq PRN Reason Stop Dose Admin Enoxaparin Sodium 40 mg 04/12/20 10:00 04/16/20 10:11 Lovenox - SQ 40 mg DAILY [facility] Administration Multivitamins/Minerals 10 ml/ 2,000 mls @ 83.333 mls/hr 04/13/20 16:00 04/15/20 17:50 Potassium Chloride 20 meq/ IV 83.333 mls/hr Sterile Water/ Amino Acids/ DAILY@1600 [facility] Administration Dextrose Fat Emulsion-[place] Oil/Soybean Oil 250 mls @ 20.833 mls/hr 04/14/20 22:00 04/15/20 22:21 Clinolipid 20% Iv Fat Emulsion IV 20.833 mls/hr DAILY@2200 [facility] Administration Lactated Ringer's 1,000 ml in 1,000 mls @ 50 mls/hr 04/15/20 13:45 04/15/20 15:27 Lactated Ringers Solution IV 50 mls/hr ASDIR [facility] Administration Ampicillin Sodium/Sulbactam 100 mls @ 200 mls/hr 04/15/20 21:15 04/16/20 08:21 Sodium 3 gm/ Sodium Chloride IVPB 200 mls/hr Q6H-IV [facility] Administration Pantoprazole Sodium 80 mg/ 100 mls @ 10 mls/hr 04/16/20 03:55 04/16/20 04:50 Sodium Chloride IVPB 04/19/20 03:55 10 mls/hr Q10H [facility] Administration 8 MG/HR Morphine Sulfate 3 mg 04/11/20 11:43 04/15/20 23:49 Morphine Sulfate IVPUSH 3 mg Q4H PRN Administration PAIN LEVEL 6-10 Ondansetron HCl 4 mg 04/12/20 04:29 Zofran Injection IVPUSH Q6H PRN NAUSEA IMPRESSION 1. perforated duodenal ulcer 2. polysubstacne use 3. npo for 1 week 4. s/p surgery for ruptured duodenal ulcer Plan - repeat labs in am - 2 liters volume today - pt npo until Friday - continue LR at 50 cc MV
--- NOTE | 2020-04-16 14:34 | PN ---
Progress Note, Physician Chief Complaint: No acute events History of Present Illness: 49 year old Male with polysubstance use disorder (Cocaine, Marijuana) presented with 2 days of worsening generalized abdominal pain with sudden onset of distention. On CXR, pneumoperitoneum was noted. CT AP showed moderate-large p neumoperitoneum, and a small-moderate amount of free fluid within the pelvis and upper abdomen; Nonspecific fluid-filled small bowel dilatation is seen which could be on the basis of an ileus versus distal small bowel obstruction. Mild to moderate fluid-filled gastric distention is also seen. Mild nonspecific left hydronephrosis. Patient underwent exploratory laparotomy, & found to have perforated ulcer at anterior pylorus/duodenal bulb, ascites with exudate. Tylenol and Morphine were given for pain. Zosyn 3.375gm Q8H(04/10) and Flucanazole 200 mg daily (04/09). - Current Medication List Current Medications: Active Medications Enoxaparin Sodium (Lovenox -) 40 mg SQ DAILY [facility] Last Admin: 04/16/20 10:11 Dose: 40 mg Documented by: Multivitamins/Minerals 10 ml/Potassium Chloride 20 meq/Sterile Water/ Amino Acids/Dextrose 2,000 mls @ 83.333 mls/hr IV DAILY@1600 [facility] Last Admin: 04/15/20 17:50 Dose: 83.333 mls/hr Documented by: Fat Emulsion-[place] Oil/Soybean Oil (Clinolipid 20% Iv Fat Emulsion) 250 mls @ 20.833 mls/hr IV DAILY@2200 [facility] Last Admin: 04/15/20 22:21 Dose: 20.833 mls/hr Documented by: Lactated Ringer's (Lactated Ringers Solution) 1,000 ml in 1,000 mls @ 50 mls/hr IV ASDIR [facility] Last Admin: 04/15/20 15:27 Dose: 50 mls/hr Documented by: Ampicillin Sodium/Sulbactam (Sodium 3 gm/ Sodium Chloride) 100 mls @ 200 mls/hr IVPB Q6H-IV [facility] Last Admin: 04/16/20 08:21 Dose: 200 mls/hr Documented by: Pantoprazole Sodium 80 mg/ (Sodium Chloride) 100 mls @ 10 mls/hr IVPB Q10H [facility] Stop: 04/19/20 03:55 Last Admin: 04/16/20 04:50 Dose: 10 mls/hr Documented by: Morphine Sulfate (Morphine Sulfate) 3 mg IVPUSH Q4H PRN PRN Reason: PAIN LEVEL 6-10 Last Admin: 04/15/20 23:49 Dose: 3 mg Documented by: Ondansetron HCl (Zofran Injection) 4 mg IVPUSH Q6H PRN PRN Reason: NAUSEA - Objective Vital Signs: Vital Signs Temperature 98.5 F 04/16/20 09:00 Pulse Rate 67 04/16/20 09:00 Respiratory Rate 18 04/16/20 09:00 Blood Pressure 143/93 04/16/20 09:00 O2 Sat by Pulse Oximetry (%) 99 04/16/20 09:00 Constitutional: Yes: Well Nourished, No Distress Eyes: Yes: WNL, Conjunctiva Clear HENT: Yes: WNL, Atraumatic, Normocephalic Neck: Yes: WNL, Supple, Trachea Midline Cardiovascular: Yes: WNL, Regular Rate and Rhythm Respiratory: Yes: WNL, Regular, CTA Bilaterally Gastrointestinal: Yes: WNL, Normal Bowel Sounds Musculoskeletal: Yes: WNL Extremities: Yes: WNL Edema: No Peripheral Pulses WNL: Yes Integumentary: Yes: WNL Neurological: Yes: WNL, Alert, Oriented ...Motor Strength: WNL Psychiatric: Yes: WNL, Alert, Oriented Labs: CBC, BMP 04/16/20 06:15 04/16/20 06:15 INR, PTT INR 1.62 (0.83-1.09) H 04/09/20 09:00 Impression/Plan Impression/Plan: 49 Year old Male with polysubstance use disorder (Cocaine, Marijuana) presented with 2 days of worsening generalized abdominal pain with sudden onset of diste ntion. On CXR, pneumoperitoneum was noted. CT AP showed moderate-large pneumoperitoneum, and a small-moderate amount of free fluid within the pelvis and upper abdomen; Nonspecific fluid-filled small bowel dilatation is seen which could be on the basis of an ileus versus distal small bowel obstruction. Mild to moderate fluid-filled gastric distention is also seen. Mild nonspecific left hydronephrosis. Patient underwent exploratory laparotomy, & was found to have perforated ulcer at anterior pylorus/duodenal bulb, ascites with exudate. Tylenol and Morphine were given for pain. Zosyn 3.375gm Q8H(04/10) and Flucanazole 200 mg daily (04/09). 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 WBC improved 17-->15 . Remains afebrile (2) Cocaine abuse Code(s): F14.10 - COCAINE ABUSE, UNCOMPLICATED (3) Hydronephrosis Code(s): N13.30 - UNSPECIFIED HYDRONEPHROSIS (4) Leukocytosis Code(s): D72.829 - ELEVATED WHITE BLOOD CELL COUNT, UNSPECIFIED (5) Marijuana abuse Code(s): F12.10 - CANNABIS ABUSE, UNCOMPLICATED (6) Opiate dependence Code(s): F11.20 - OPIOID DEPENDENCE, UNCOMPLICATED Dispo: Patient full code #DVT prophylaxsis SCDs/SQ Lovenox Visit type - Emergency Visit Emergency Visit: Yes ED Registration Date: 04/09/20 Care time: The patient presented to the Emergency Department on the above date and was hospitalized for further evaluation of their emergent condition. - New Patient This patient is new to me today: No - Critical Care Critical Care patient: No - Discharge Referral Referred to [facility] No
[2020-04-16] MEDS: LACTATED RINGERS SOLUTION 1,000 ML/1,000 ML INFUS.BAG IV SCH (14:55)
--- NOTE | 2020-04-16 17:15 | PN ---
Progress Note, Physician History of Present Illness: Pt is alert, without distress. Minimal abd discomfort. Afebrile today. Antibiotics restarted yesterday, wbc decreased. - Current Medication List Current Medications: Active Medications Enoxaparin Sodium (Lovenox -) 40 mg SQ DAILY [facility] Last Admin: 04/16/20 10:11 Dose: 40 mg Documented by: Multivitamins/Minerals 10 ml/Potassium Chloride 20 meq/Sterile Water/ Amino Acids/Dextrose 2,000 mls @ 83.333 mls/hr IV DAILY@1600 [facility] Last Admin: 04/15/20 17:50 Dose: 83.333 mls/hr Documented by: Fat Emulsion-[place] Oil/Soybean Oil (Clinolipid 20% Iv Fat Emulsion) 250 mls @ 20.833 mls/hr IV DAILY@2200 [facility] Last Admin: 04/15/20 22:21 Dose: 20.833 mls/hr Documented by: Lactated Ringer's (Lactated Ringers Solution) 1,000 ml in 1,000 mls @ 50 mls/hr IV ASDIR [facility] Last Admin: 04/16/20 14:55 Dose: 50 mls/hr Documented by: Ampicillin Sodium/Sulbactam (Sodium 3 gm/ Sodium Chloride) 100 mls @ 200 mls/hr IVPB Q6H-IV [facility] Last Admin: 04/16/20 14:55 Dose: 200 mls/hr Documented by: Pantoprazole Sodium 80 mg/ (Sodium Chloride) 100 mls @ 10 mls/hr IVPB Q10H [facility] Stop: 04/19/20 03:55 Last Admin: 04/16/20 14:55 Dose: 10 mls/hr Documented by: Morphine Sulfate (Morphine Sulfate) 3 mg IVPUSH Q4H PRN PRN Reason: PAIN LEVEL 6-10 Last Admin: 04/15/20 23:49 Dose: 3 mg Documented by: Ondansetron HCl (Zofran Injection) 4 mg IVPUSH Q6H PRN PRN Reason: NAUSEA - Objective Vital Signs: Vital Signs Temperature 98.5 F 04/16/20 09:00 Pulse Rate 67 04/16/20 09:00 Respiratory Rate 18 04/16/20 09:00 Blood Pressure 143/93 04/16/20 09:00 O2 Sat by Pulse Oximetry (%) 99 04/16/20 09:00 Constitutional: Yes: No Distress, Calm Cardiovascular: Yes: Regular Rate and Rhythm Respiratory: Yes: Regular Gastrointestinal: Yes: Normal Bowel Sounds, Soft, Other (NGT) Genitourinary: Yes: WNL Wound/Incision: Yes: Dressing Dry and Intact Neurological: Yes: Alert, Oriented Labs: CBC, BMP 04/16/20 06:15 04/16/20 06:15 INR, PTT INR 1.62 (0.83-1.09) H 04/09/20 09:00 Microbiology 04/09/20 21:31 Blood - Peripheral Venous Blood Culture - Final NO GROWTH AFTER 5 DAYS INCUBATION 04/09/20 21:28 Blood - Peripheral Venous Blood Culture - Final NO GROWTH AFTER 5 DAYS INCUBATION 04/09/20 17:46 Tissue-Other Gram Stain - Final 04/09/20 17:46 Tissue-Other Tissue Culture - Final Streptococcus Salivarius Strep Agalactiae Group B 04/09/20 17:46 Tissue-Other Anaerobic Culture - Final NO ANAEROBES WERE ISOLATED Problem List - Problems (1) Cocaine abuse Code(s): F14.10 - COCAINE ABUSE, UNCOMPLICATED (2) Hydronephrosis Code(s): N13.30 - UNSPECIFIED HYDRONEPHROSIS (3) Leukocytosis Code(s): D72.829 - ELEVATED WHITE BLOOD CELL COUNT, UNSPECIFIED (4) Marijuana abuse Code(s): F12.10 - CANNABIS ABUSE, UNCOMPLICATED (5) Opiate dependence Code(s): F11.20 - OPIOID DEPENDENCE, UNCOMPLICATED (6) Perforated chronic gastric ulcer Code(s): K25.5 - CHRONIC OR UNSPECIFIED GASTRIC ULCER WITH PERFORATION (7) Pneumoperitoneum Code(s): K66.8 - OTHER SPECIFIED DISORDERS OF PERITONEUM Assessment/Plan Perforated duodenal ulcer s/p laparotomy/Rolando patch Pneumoperitoneum Leukocytosis Fever Leukocytosis improved since yesterday, afebrile continue Unasyn If no clear improvement consider repeat CT NGT in place Surgery following
[2020-04-16] MEDS: MULTIVIT IV SCH (18:09)
[2020-04-16] MEDS: [UNRECOGNIZED DRUG - OTHER] IV SCH (18:09)
[2020-04-16] MEDS: POTASSIUM CHLORIDE IV SCH (18:09)
[2020-04-16] MEDS: morphine SULFATE 4 MG/ML VIAL IVPUSH PRN (18:14)
[2020-04-16] MEDS: FAT EMULSION/OLIVE/SOY/PHOSPHO 250 ML IV SCH (22:03)
[2020-04-17] MEDS: PANTOPRAZOLE SODIUM 80 MG in SODIUM CHLORIDE 100 ML IVPB SCH ×2 (01:26→12:37)
[2020-04-17] MEDS: AMPICILLIN NA/SULBACTAM NA 3 GM in SODIUM CHLORIDE 100 ML IVPB SCH ×4 (02:34→21:35)
[2020-04-17] MEDS ORDERED: PT OWN MED DRAWER 7, Y5N ONE ×2 (09:14→15:24)
[2020-04-17 09:16] LABS: HEMATOCRIT 40.2 % (35.4-49); HEMOGLOBIN 13.5 GM/dL (11.7-16.9); LYMPH % 14.3 % (8-40); MCH 27.8 pg (25.7-33.7); MCHC 33.6 g/dl (32.0-35.9); MEAN CELL VOLUME 82.7 fl (80-96); MEAN PLT VOLUME 6.6 fl (7.5-11.1); MONO % 6.9 % (3.8-10.2); NEUT % 74.8 % (42.8-82.8); PLATELET COUNT 503 K/MM3 (134-434); RBC 4.86 M/mm3 (4.00-5.60); RDW 14.6 % (11.9-15.9); WHITE BLOOD COUNT 10.8 K/mm3 (4.0-10.0)
[2020-04-17] MEDS: ENOXAPARIN NA (PORCINE) 40 MG/0.4 ML DISP.SYRIN SQ SCH (09:16)
[2020-04-17 09:39] LABS: BLOOD UREA NITROGEN 17.5 mg/dL (7-18); CREATININE 0.7 mg/dL (0.55-1.3); POTASSIUM 3.9 mmol/L (3.5-5.1)
[2020-04-17] MEDS ORDERED: THROMBIN (BOVINE) 5,000 UNIT VIAL TP ONE (11:31)
[2020-04-17] MEDS ORDERED: BACITRACIN 15 GM TUBE TOPICAL OINTMENT ONE (11:32)
--- NOTE | 2020-04-17 13:00 | PN ---
Progress Note (short form) - Note Progress Note: POD 8, s/p exploratory laparotomy, vern patch procedure of perforated ulcer, drainage of ascites, lavage Pt seen and examined. States he is feeling well. No issues over the weekend. Had two large bms (one overnight and one this AM), normal no diarrhea. Has been oob ambulating room and halls. Passing flatus. Requesting food. Reports NGT came out this am during bm. Denies cp/sob, n/v/d. Vital Signs Temp 97.8 F 04/17/20 10:00 Pulse 62 04/17/20 10:00 Resp 20 04/17/20 10:00 BP 142/81 04/17/20 10:00 Pulse Ox 96 04/17/20 10:00 Intake & Output 04/16/20 04/17/20 04/17/20 23:59 11:59 23:59 Intake Total 1980 1676 Output Total 1410 1105 Balance 570 571 Weight 149 lb Intake: IV 860 360 LACTATED RINGERS SOLUTION 700 300 1,000 ml In 1,000 ml @ 50 mls/hr IV ASDIR ERIKA Rx #:[id number] Protonix Drip @10 mL/hr 160 60 IVPB 300 100 Oral 0 TPN/PPN 700 996 Lipid 120 220 Output: Gastric Drainage 300 200 Drainage 10 5 Right Abdomen 10 5 Urine 1100 900 Void 1100 900 Other: Voiding Method Urinal Toilet # Unmeasured Voids Void 1 Bowel Movement No Yes # Bowel Movements 1 Weight Measurement Method Built in [facility] CBC, BMP 04/17/20 07:50 04/17/20 07:50 Gen: awake, alert, nad resp: unlabored on ra Abdo: soft, minimally distended, incision c/d/i, no erythema or drainage. + ttp at incision site appropriate to status, drain in place with scant serous drainage in reservoir. Hypoactive bowel sounds. A/P: 49 y/o M w/ h/o substance abuse admitted with abdominal pain, found to have perforated viscous and ascites on ct, taken for emergent ex lap, now POD 8, s/p exploratory laparotomy, vern patch procedure of perforated ulcer, drainage of ascites, lavage. afebrile, vss labs noted, leukocytosis trending down, 10.8 today NGT output 200ml overnight, fell out this AM during BM Eddie output 5ml overnight -Clears ordered -Keep eddie in place -protonix changed to 40mg IV tid -ABX per ID -OOb ad crow -Pain control -DVT prophylaxis -will continue to follow d/w attending Dr Young
--- NOTE | 2020-04-17 13:08 | PN ---
Physical Exam: SUBJECTIVE: Patient seen and examined OBJECTIVE: Vital Signs Period Temp Pulse Resp BP Sys/Nuno Pulse Ox Last 24 Hr 97.6 F-98.8 F 60-64 18-20 142-155/73-91 96-99 GENERAL: The patient is awake, alert, and fully oriented, in no acute distress. HEENT: At/NC, PERRLA LUNGS: Breath sounds equal, clear to auscultation bilaterally, no wheezes, no crackles, no accessory muscle use. HEART: Regular rate and rhythm, S1, S2 without murmur, rub or gallop. ABDOMEN: soft, midline incision C/D/I closed with héctor, RUQ JOSE drain, + BS, tenderness improving around surgical incisions EXTREMITIES: 2+ pulses, warm, well-perfused, no edema. PSYCH: Normal mood, normal affect. Laboratory Results - last 24 hr 04/16/20 04/17/20 04/17/20 16:37 05:59 07:50 WBC 10.8 H RBC 4.86 Hgb 13.5 Hct 40.2 MCV 82.7 MCH 27.8 MCHC 33.6 RDW 14.6 Plt Count 503 H MPV 6.6 L Absolute Neuts (auto) 8.1 H Neutrophils % 74.8 Lymphocytes % 14.3 Monocytes % 6.9 Eosinophils % 3.0 D Basophils % 1.0 Nucleated RBC % 0 Sodium Potassium Chloride Carbon Dioxide Anion Gap BUN Creatinine Est GFR (CKD-EPI)AfAm Est GFR (CKD-EPI)NonAf POC Glucometer 116 114 Random Glucose Calcium 04/17/20 07:50 WBC RBC Hgb Hct MCV MCH MCHC RDW Plt Count MPV Absolute Neuts (auto) Neutrophils % Lymphocytes % Monocytes % Eosinophils % Basophils % Nucleated RBC % Sodium 139 Potassium 3.9 Chloride 105 Carbon Dioxide 27 Anion Gap 7 L BUN 17.5 Creatinine 0.7 Est GFR (CKD-EPI)AfAm 126.64 Est GFR (CKD-EPI)NonAf 109.27 POC Glucometer Random Glucose 109 H Calcium 9.0 Active Medications Generic Name Dose Route Start Last Admin Trade Name Freq PRN Reason Stop Dose Admin Enoxaparin Sodium 40 mg 04/12/20 10:00 04/17/20 09:16 Lovenox - SQ 40 mg DAILY ERIKA Administration Multivitamins/Minerals 10 ml/ 2,000 mls @ 83.333 mls/hr 04/13/20 16:00 04/16/20 18:09 Potassium Chloride 20 meq/ IV 83.333 mls/hr Sterile Water/ Amino Acids/ DAILY@1600 ERIKA Administration Dextrose Fat Emulsion-[place] Oil/Soybean Oil 250 mls @ 20.833 mls/hr 04/14/20 22:00 04/16/20 22:03 Clinolipid 20% Iv Fat Emulsion IV 20.833 mls/hr DAILY@2200 ERIKA Administration Lactated Ringer's 1,000 ml in 1,000 mls @ 50 mls/hr 04/15/20 13:45 04/16/20 14:55 Lactated Ringers Solution IV 50 mls/hr ASDIR ERIKA Administration Ampicillin Sodium/Sulbactam 100 mls @ 200 mls/hr 04/15/20 21:15 04/17/20 09 :15 Sodium 3 gm/ Sodium Chloride IVPB 200 mls/hr Q6H-IV ERIKA Administration Ondansetron HCl 4 mg 04/12/20 04:29 Zofran Injection IVPUSH Q6H PRN NAUSEA Pantoprazole Sodium 40 mg 04/17/20 14:00 Protonix Iv IVPUSH TID ERIKA ASSESSMENT/PLAN: 49 yo Man with hx of substance use (cocaine and marijuana) who presented to the ED with sudden onset distention and abdominal pain and was found to have perforated duodenal ulcer # Perforated Duodenal Ulcer s/p exploratory laparotomy, vern patch procedure of perforated ulcer, drainage of ascites, lavage on 04/09/[address], JOSE drain with minimal drainage started on clear liquids, had BM OOB, incentive spirometry Pain management as indicated on Abx WBC trending down remains afebrile, stable VS case discussed with consults ID following nephrology folllowing Surgery following polysubstance abuse HTN DVT prophylaxis with SCD Visit type - Emergency Visit Emergency Visit: Yes ED Registration Date: 04/09/20 Care time: The patient presented to the Emergency Department on the above date and was hospitalized for further evaluation of their emergent condition. - New Patient This patient is new to me today: Yes Date on this admission: 04/17/20 - Critical Care Critical Care patient: No - Discharge Referral Referred to [facility] No
--- NOTE | 2020-04-17 13:21 | PN ---
Progress Note, Physician History of Present Illness: stable no new issues - Current Medication List Current Medications: Active Medications Enoxaparin Sodium (Lovenox -) 40 mg SQ DAILY [facility] Last Admin: 04/17/20 09:16 Dose: 40 mg Documented by: Multivitamins/Minerals 10 ml/Potassium Chloride 20 meq/Sterile Water/ Amino Acids/Dextrose 2,000 mls @ 83.333 mls/hr IV DAILY@1600 [facility] Last Admin: 04/16/20 18:09 Dose: 83.333 mls/hr Documented by: Fat Emulsion-[place] Oil/Soybean Oil (Clinolipid 20% Iv Fat Emulsion) 250 mls @ 20.833 mls/hr IV DAILY@2200 [facility] Last Admin: 04/16/20 22:03 Dose: 20.833 mls/hr Documented by: Lactated Ringer's (Lactated Ringers Solution) 1,000 ml in 1,000 mls @ 50 mls/hr IV ASDIR [facility] Last Admin: 04/16/20 14:55 Dose: 50 mls/hr Documented by: Ampicillin Sodium/Sulbactam (Sodium 3 gm/ Sodium Chloride) 100 mls @ 200 mls/hr IVPB Q6H-IV [facility] Last Admin: 04/17/20 09:15 Dose: 200 mls/hr Documented by: Ondansetron HCl (Zofran Injection) 4 mg IVPUSH Q6H PRN PRN Reason: NAUSEA Pantoprazole Sodium (Protonix Iv) 40 mg IVPUSH TID [facility] - Objective Vital Signs: Vital Signs Temperature 97.8 F 04/17/20 10:00 Pulse Rate 62 04/17/20 10:00 Respiratory Rate 20 04/17/20 10:00 Blood Pressure 142/81 04/17/20 10:00 O2 Sat by Pulse Oximetry (%) 96 04/17/20 10:00 Constitutional: Yes: No Distress, Calm Cardiovascular: Yes: Tachycardia, S1 Respiratory: Yes: Regular, CTA Bilaterally Gastrointestinal: Yes: Normal Bowel Sounds, Soft Musculoskeletal: Yes: WNL Extremities: Yes: WNL Neurological: Yes: Alert, Oriented Psychiatric: Yes: Alert, Oriented Labs: CBC, BMP 04/17/20 07:50 04/17/20 07:50 INR, PTT INR 1.62 (0.83-1.09) H 04/09/20 09:00 Assessment/Plan Problem List - Problems (1) Pneumoperitoneum Code(s): K66.8 - OTHER SPECIFIED DISORDERS OF PERITONEUM (2) Cocaine abuse Code(s): F14.10 - COCAINE ABUSE, UNCOMPLICATED (3) Hydronephrosis Code(s): N13.30 - UNSPECIFIED HYDRONEPHROSIS (4) Leukocytosis Code(s): D72.829 - ELEVATED WHITE BLOOD CELL COUNT, UNSPECIFIED (5) Leukocytosis Code(s): D72.829 - ELEVATED WHITE BLOOD CELL COUNT, UNSPECIFIED (6) Marijuana abuse Code(s): F12.10 - CANNABIS ABUSE, UNCOMPLICATED (7) Opiate dependence Code(s): F11.20 - OPIOID DEPENDENCE, UNCOMPLICATED Assessment/Plan POD # Exploratory laparotomy, vern patch of perforated ulcer, drainage of ascites, lavage due to a perforated ulcer at anterior pylorus/duodenal bulb Leukocytosis Polysubstance Use -plan continue current mgmt rest as per the team
[2020-04-17] MEDS: PANTOPRAZOLE SODIUM 40 MG VIAL IVPUSH SCH ×2 (15:27→21:38)
--- NOTE | 2020-04-17 16:29 | PN ---
Progress Note, Physician History of Present Illness: Pt seen and examined at bedside. He is awake and alert. He is tolerating clears. - Current Medication List Current Medications: Active Medications Enoxaparin Sodium (Lovenox -) 40 mg SQ DAILY [facility] Last Admin: 04/17/20 09:16 Dose: 40 mg Documented by: Multivitamins/Minerals 10 ml/Potassium Chloride 20 meq/Sterile Water/ Amino Acids/Dextrose 2,000 mls @ 83.333 mls/hr IV DAILY@1600 [facility] Last Admin: 04/16/20 18:09 Dose: 83.333 mls/hr Documented by: Fat Emulsion-[place] Oil/Soybean Oil (Clinolipid 20% Iv Fat Emulsion) 250 mls @ 20.833 mls/hr IV DAILY@2200 [facility] Last Admin: 04/16/20 22:03 Dose: 20.833 mls/hr Documented by: Lactated Ringer's (Lactated Ringers Solution) 1,000 ml in 1,000 mls @ 50 mls/hr IV ASDIR [facility] Last Admin: 04/16/20 14:55 Dose: 50 mls/hr Documented by: Ampicillin Sodium/Sulbactam (Sodium 3 gm/ Sodium Chloride) 100 mls @ 200 mls/hr IVPB Q6H-IV [facility] Last Admin: 04/17/20 15:27 Dose: 200 mls/hr Documented by: Ondansetron HCl (Zofran Injection) 4 mg IVPUSH Q6H PRN PRN Reason: NAUSEA Pantoprazole Sodium (Protonix Iv) 40 mg IVPUSH BID [facility] Last Admin: 04/17/20 15:27 Dose: 40 mg Documented by: - Objective Vital Signs: Vital Signs Temperature 98.4 F 04/17/20 15:00 Pulse Rate 61 04/17/20 15:00 Respiratory Rate 14 04/17/20 15:00 Blood Pressure 148/80 04/17/20 15:00 O2 Sat by Pulse Oximetry (%) 97 04/17/20 15:00 Constitutional: Yes: Calm Eyes: Yes: Conjunctiva Clear HENT: Yes: Atraumatic Cardiovascular: Yes: S1, S2 Gastrointestinal: Yes: Normal Bowel Sounds, Soft Genitourinary: Yes: WNL Musculoskeletal: Yes: WNL Edema: No Neurological: Yes: Oriented Psychiatric: Yes: Oriented Labs: CBC, BMP 04/17/20 07:50 04/17/20 07:50 INR, PTT INR 1.62 (0.83-1.09) H 04/09/20 09:00 Problem List - Problems (1) Cocaine abuse Code(s): F14.10 - COCAINE ABUSE, UNCOMPLICATED (2) Marijuana abuse Code(s): F12.10 - CANNABIS ABUSE, UNCOMPLICATED (3) Opiate dependence Code(s): F11.20 - OPIOID DEPENDENCE, UNCOMPLICATED (4) Perforated chronic gastric ulcer Code(s): K25.5 - CHRONIC OR UNSPECIFIED GASTRIC ULCER WITH PERFORATION Assessment/Plan Current Medications Generic Name Dose Route Start Last Admin Trade Name Freq PRN Reason Stop Dose Admin Enoxaparin Sodium 40 mg 04/12/20 10:00 04/17/20 09:16 Lovenox - SQ 40 mg DAILY ERIKA Administration Multivitamins/Minerals 10 ml/ 2,000 mls @ 83.333 mls/hr 04/13/20 16:00 04/16/20 18:09 Potassium Chloride 20 meq/ IV 83.333 mls/hr Sterile Water/ Amino Acids/ DAILY@1600 ERIKA Administration Dextrose Fat Emulsion-[place] Oil/Soybean Oil 250 mls @ 20.833 mls/hr 04/14/20 22:00 04/16/20 22:03 Clinolipid 20% Iv Fat Emulsion IV 20.833 mls/hr DAILY@2200 ERIKA Administration Lactated Ringer's 1,000 ml in 1,000 mls @ 50 mls/hr 04/15/20 13:45 04/16/20 14:55 Lactated Ringers Solution IV 50 mls/hr ASDIR ERIKA Administration Ampicillin Sodium/Sulbactam 100 mls @ 200 mls/hr 04/15/20 21:15 04/17/20 15:27 Sodium 3 gm/ Sodium Chloride IVPB 200 mls/hr Q6H-IV ERIKA Administration Ondansetron HCl 4 mg 04/12/20 04:29 Zofran Injection IVPUSH Q6H PRN NAUSEA Pantoprazole Sodium 40 mg 04/17/20 14:00 04/17/20 15:27 Protonix Iv IVPUSH 40 mg BID ERIKA Administration Impression 1. perforated duodenal ulcer 2. polysubstance use 3. npo for 1 week 4. s/p surgery for ruptured duodenal ulcer 5. thrombocytosis Plan - pt tolerating clears - cont stop tpn - gentle hydration to avoid dehydration - repeat labs in am - repeat cbc - monitor platelets
[2020-04-17] MEDS ORDERED: SODIUM CHLORIDE 0.45% 1,000 ML IV SCH (16:30)
[2020-04-17] MEDS: MULTIVIT IV SCH (16:59)
[2020-04-17] MEDS: POTASSIUM CHLORIDE IV SCH (16:59)
[2020-04-17] MEDS: [UNRECOGNIZED DRUG - OTHER] IV SCH (16:59)
[2020-04-17 23:59] VITALS: BMI 19.6
[2020-04-18] MEDS: AMPICILLIN NA/SULBACTAM NA 3 GM in SODIUM CHLORIDE 100 ML IVPB SCH ×2 (03:05→09:28)
[2020-04-18] MEDS: LACTATED RINGERS SOLUTION 1,000 ML/1,000 ML INFUS.BAG IV SCH (07:20)
[2020-04-18 08:29] LABS: ALBUMIN 2.7 g/dl (3.4-5.0); BILIRUBIN,TOTAL 0.4 mg/dL (0.2-1); BLOOD UREA NITROGEN 15.2 mg/dL (7-18); CALCIUM 8.8 mg/dL (8.5-10.1); CREATININE 0.8 mg/dL (0.55-1.3); POTASSIUM 4.1 mmol/L (3.5-5.1); TOT PROT 5.6 g/dl (6.4-8.2)
[2020-04-18 08:32] LABS: BASO % 1.3 % (0-2.0); EOS % 3.5 % (0-4.5); HEMATOCRIT 38.6 % (35.4-49); HEMOGLOBIN 12.8 GM/dL (11.7-16.9); LYMPH % 22.8 % (8-40); MCH 27.2 pg (25.7-33.7); MCHC 33.2 g/dl (32.0-35.9); MEAN PLT VOLUME 6.4 fl (7.5-11.1); MONO % 7.9 % (3.8-10.2); NEUT % 64.5 % (42.8-82.8); PLATELET COUNT 536 K/MM3 (134-434); RDW 14.4 % (11.9-15.9); WHITE BLOOD COUNT 9.5 K/mm3 (4.0-10.0)
[2020-04-18] MEDS ORDERED: PT OWN MED DRAWER 7, Y5N ONE (09:07)
--- NOTE | 2020-04-18 09:11 | PN ---
Progress Note (short form) - Note Progress Note: POD 9, s/p exploratory laparotomy, vern patch procedure of perforated ulcer, drainage of ascites, lavage Pt seen and examined. States he is feeling well. No issues overnight. Had another Bm this AM. Has been oob ambulating room and halls. Passing flatus. Requesting more food. Denies cp/sob, n/v/d. Vital Signs Temp 98.6 F 04/18/20 05:37 Pulse 54 L 04/18/20 05:37 Resp 18 04/18/20 05:37 BP 125/78 04/18/20 05:37 Pulse Ox 98 04/18/20 05:37 Intake & Output 04/17/20 04/17/20 04/18/20 11:59 23:59 11:59 Intake Total 1676 1621.3 Output Total 4098 205 3753 Balance 571 1016.3 -1000 Weight 149 lb 147 lb 12.8 oz Intake: IV 360 450 1/2 Normal Saline 1,000 100 ml @ 50 mls/hr IV ASDIR ERIKA Rx#:[id number] LACTATED RINGERS SOLUTION 300 300 1,000 ml In 1,000 ml @ 50 mls/hr IV ASDIR ERIKA Rx #:[id number] Protonix Drip @10 mL/hr 60 50 IVPB 100 200 TPN/PPN 996 971.3 Lipid 220 Output: Gastric Drainage 200 Drainage 5 5 Right Abdomen 5 5 Urine 673 532 8602 [place] 600 Void 900 1000 Other: Voiding Method Toilet Toilet Toilet # Unmeasured Voids Void 1 2 Bowel Movement Yes Yes No # Bowel Movements 1 1 Body Mass Index (BMI) 19.6 Weight Measurement Method Built in [facility] Built in [facility] CBC, BMP 04/18/20 06:47 04/18/20 06:47 Gen: awake, alert, nad resp: unlabored on ra Abdo: soft, minimally distended, incision c/d/i, no erythema or drainage. + ttp at incision site appropriate to status, drain in place with scant serous drainage in reservoir. Hypoactive bowel sounds. A/P: 49 y/o M w/ h/o substance abuse admitted with abdominal pain, found to have perforated viscous and ascites on ct, taken for emergent ex lap, now POD 9, s/p exploratory laparotomy, vern patch procedure of perforated ulcer, drainage of ascites, lavage. afebrile, vss labs pending Eddie output 5ml overnight -Full liquids ordered -Will remove drain today -Pt to continue full liquids for 2 weeks -continue protonix bid -f/u in the office in 2weeks d/w attending Dr Young
[2020-04-18] MEDS: ENOXAPARIN NA (PORCINE) 40 MG/0.4 ML DISP.SYRIN SQ SCH (09:28)
[2020-04-18] MEDS: PANTOPRAZOLE SODIUM 40 MG VIAL IVPUSH SCH (09:29)
[2020-04-18 10:00] VITALS: BP 132/72; PULSE 95; TEMP 98
--- NOTE | 2020-04-18 12:22 | DS ---
Physical Exam: SUBJECTIVE: Patient seen and examined at the bedside. OBJECTIVE: Patient is a 49 yo Man with hx of substance use (cocaine and marijuana) who presented to the ED on 04/09/2020 with sudden onset distention and abdominal pain and was found to have perforated duodenal ulcer. He is s/p exploratory laparotomy, vern patch procedure of perforated ulcer, drainage of ascites, lavage on 04/09/20. JOSE drain removed today, diet advanced. He will follow up with surgery as an outpatient. Vital Signs Period Temp Pulse Resp BP Sys/Nuno Pulse Ox Last 24 Hr 98.0 F-98.6 F 54-95 14-19 125-148/72-87 97-99 PHYSICAL EXAM GENERAL: The patient is awake, alert, and fully oriented, in no acute distress. HEAD: Normal with no signs of trauma. EYES: PERRL, extraocular movements intact, sclera anicteric, conjunctiva clear. ENT: Ears normal, nares patent, oropharynx clear without exudates, moist mucous membranes. NECK: Trachea midline, full range of motion, supple. LUNGS: Breath sounds equal, clear to auscultation bilaterally HEART: Regular rate and rhythm ABDOMEN: Soft, nontender, nondistended, normoactive bowel sounds, no guarding, no rebound NEUROLOGICAL: Normal speech, gait not observed. PSYCH: Normal mood, normal affect. SKIN: Warm, dry, normal turgor, no rashes or lesions noted. LABS Laboratory Results - last 24 hr 04/18/20 04/18/20 06:47 06:47 WBC 9.5 RBC 4.70 Hgb 12.8 Hct 38.6 MCV 82.0 MCH 27.2 MCHC 33.2 RDW 14.4 Plt Count 536 H MPV 6.4 L Absolute Neuts (auto) 6.1 Neutrophils % 64.5 Lymphocytes % 22.8 D Monocytes % 7.9 Eosinophils % 3.5 Basophils % 1.3 Nucleated RBC % 0 Sodium 140 Potassium 4.1 Chloride 104 Carbon Dioxide 29 Anion Gap 6 L BUN 15.2 Creatinine 0.8 Est GFR (CKD-EPI)AfAm 119.88 Est GFR (CKD-EPI)NonAf 103.43 Random Glucose 73 L Calcium 8.8 Total Bilirubin 0.4 AST 25 ALT 47 Alkaline Phosphatase 110 Total Protein 5.6 L Albumin 2.7 L HOSPITAL COURSE: Date of Admission:04/09/20 Date of Discharge: 04/18/20 Patient is a 49 year old male with hx of substance use (cocaine and marijuana) who presented to the ED on 04/09/2020 with sudden onset distention and abdominal pain and was found to have perforated duodenal ulcers. He is s/p exploratory laparotomy, vern patch procedure of perforated ulcer, drainage of ascites, lavage on 04/09/20. JOSE drain removed today 04/18, patient started on clears and advanced to full liquids. Patient to be discharged home with follow up with surgery. Minutes to complete discharge: 45 Discharge Summary Problems reviewed: Yes Reason For Visit: PNEUMOPERITONEM Current Active Problems At risk for electrolyte imbalance (Acute) Cocaine abuse (Acute) DVT prophylaxis (Acute) Hydronephrosis (Acute) Leukocytosis (Acute) Leukocytosis (Acute) Marijuana abuse (Acute) Opiate dependence (Acute) PVCs (premature ventricular contractions) (Acute) Perforated chronic gastric ulcer (Acute) Pneumoperitoneum (Acute) Condition: Improved - Instructions Diet, Activity, Other Instructions: Jordi CONDE, Post Operative Instructions Physical activity Resume your normal everyday activity as tolerated no heavy lifting or exercise until seen by your surgeon. You may walk unlimited amounts of and climb stairs. No driving until otherwise instructed by your surgeon. Wound care You have a liquid bandage over your incisions. This will come off slowly on its own over the next few weeks. Please avoid picking at it if you notice it flaking. You may shower starting in 48 hours. When showering allow soap and water to run over your incision, do not scrub your incision. Pat dry after showering. Diet Continue full liquids for 2 weeks. Medication: Continue taking Protonix 40mg twice daily (morning and evening). Pain management You may take Tylenol or acetaminophen or Ibuprofen (for example, Motrin, Advil etc.) Any pain prescription medication ordered should be taken as prescribed for moderate to severe pain. Call Dr. Young for any of the following: Severe pain not relieved by medication Fever of 101 or higher Excessive bleeding or drainage on dressing Inability to urinate Call the office for a post operative appointment in 2 weeks. Referrals: Raheem May MD [Primary Care Provider] - Disposition: HOME - Home Medications Comprehensive Discharge Medication List: Ambulatory Orders Pantoprazole Sodium [Protonix] 40 mg PO BID #30 tablet. 04/18/20 Problem List - Problems (1) Perforated chronic gastric ulcer Code(s): K25.5 - CHRONIC OR UNSPECIFIED GASTRIC ULCER WITH PERFORATION (2) Pneumoperitoneum Code(s): K66.8 - OTHER SPECIFIED DISORDERS OF PERITONEUM (3) PVCs (premature ventricular contractions) Code(s): I49.3 - VENTRICULAR PREMATURE DEPOLARIZATION (4) At risk for electrolyte imbalance Code(s): Z91.89 - OTH PERSONAL RISK FACTORS, NOT ELSEWHERE CLASSIFIED (5) Cocaine abuse Code(s): F14.10 - COCAINE ABUSE, UNCOMPLICATED (6) Leukocytosis Code(s): D72.829 - ELEVATED WHITE BLOOD CELL COUNT, UNSPECIFIED (7) Opiate dependence Code(s): F11.20 - OPIOID DEPENDENCE, UNCOMPLICATED (8) Marijuana abuse Code(s): F12.10 - CANNABIS ABUSE, UNCOMPLICATED (9) DVT prophylaxis Code(s): Z29.9 - ENCOUNTER FOR PROPHYLACTIC MEASURES, UNSPECIFIED This patient is new to me today: Yes Date on this admission: 04/18/20 Emergency Visit: Yes ED Registration Date: 04/09/20 Care time: The patient presented to the Emergency Department on the above date and was hospitalized for further evaluation of their emergent condition. Critical Care patient: No - Discharge Referral Referred to [facility] No
--- NOTE | 2020-04-18 13:19 | PROC ---
Procedure Note Procedure: right TLC removed by primary RN Nolvia under my supervision all sutures removed right tlc removed intact no bleeding patient instructed to stay in bed x 30 minutes before ambulation to assure no bleeding patient to be d/c home primary RN to monitor post TLC removal
--- NOTE | 2020-04-18 13:22 | PN ---
Progress Note, Physician History of Present Illness: Pt seen and examined at bedside. He is awake and alert. He denies shortness of breath. He is tolerating diet. - Current Medication List Current Medications: Active Medications Enoxaparin Sodium (Lovenox -) 40 mg SQ DAILY [facility] Last Admin: 04/18/20 09:28 Dose: 40 mg Documented by: Multivitamins/Minerals 10 ml/Potassium Chloride 20 meq/Sterile Water/ Amino Acids/Dextrose 2,000 mls @ 83.333 mls/hr IV DAILY@1600 [facility] Last Admin: 04/17/20 16:59 Dose: Not Given Documented by: Ampicillin Sodium/Sulbactam (Sodium 3 gm/ Sodium Chloride) 100 mls @ 200 mls/hr IVPB Q6H-IV [facility] Last Admin: 04/18/20 09:28 Dose: 200 mls/hr Documented by: Sodium Chloride (1/2 Normal Saline) 1,000 mls @ 50 mls/hr IV ASDIR [facility] Stop: 04/18/20 16:30 Last Admin: 04/17/20 17:01 Dose: 50 mls/hr Documented by: Ondansetron HCl (Zofran Injection) 4 mg IVPUSH Q6H PRN PRN Reason: NAUSEA Pantoprazole Sodium (Protonix Iv) 40 mg IVPUSH BID [facility] Last Admin: 04/18/20 09:29 Dose: 40 mg Documented by: - Objective Vital Signs: Vital Signs Temperature 98.0 F 04/18/20 09:58 Pulse Rate 95 H 04/18/20 09:58 Respiratory Rate 19 04/18/20 09:58 Blood Pressure 132/72 04/18/20 09:58 O2 Sat by Pulse Oximetry (%) 97 04/18/20 09:58 Constitutional: Yes: Calm Eyes: Yes: Conjunctiva Clear HENT: Yes: Atraumatic Neck: Yes: Supple Cardiovascular: Yes: S1, S2 Respiratory: Yes: CTA Bilaterally Gastrointestinal: Yes: Normal Bowel Sounds, Soft Genitourinary: Yes: WNL Musculoskeletal: Yes: WNL Edema: No Integumentary: Yes: WNL Neurological: Yes: Oriented Psychiatric: Yes: Oriented Labs: CBC, BMP 04/18/20 06:47 04/18/20 06:47 INR, PTT INR 1.62 (0.83-1.09) H 04/09/20 09:00 Problem List - Problems (1) Cocaine abuse Code(s): F14.10 - COCAINE ABUSE, UNCOMPLICATED (2) Marijuana abuse Code(s): F12.10 - CANNABIS ABUSE, UNCOMPLICATED (3) Opiate dependence Code(s): F11.20 - OPIOID DEPENDENCE, UNCOMPLICATED (4) Perforated chronic gastric ulcer Code(s): K25.5 - CHRONIC OR UNSPECIFIED GASTRIC ULCER WITH PERFORATION Assessment/Plan Current Medications Generic Name Dose Route Start Last Admin Trade Name Sánchezq PRN Reason Stop Dose Admin Enoxaparin Sodium 40 mg 04/12/20 10:00 04/18/20 09:28 Lovenox - SQ 40 mg DAILY ERIKA Administration Multivitamins/Minerals 10 ml/ 2,000 mls @ 83.333 mls/hr 04/13/20 16:00 04/17/20 16:59 Potassium Chloride 20 meq/ IV Not Given Sterile Water/ Amino Acids/ DAILY@1600 ERIKA Dextrose Ampicillin Sodium/Sulbactam 100 mls @ 200 mls/hr 04/15/20 21:15 04/18/20 09:28 Sodium 3 gm/ Sodium Chloride IVPB 200 mls/hr Q6H-IV ERIKA Administration Sodium Chloride 1,000 mls @ 50 mls/hr 04/17/20 16:30 04/17/20 17:01 1/2 Normal Saline IV 04/18/20 16:30 50 mls/hr ASDIR ERIKA Administration Ondansetron HCl 4 mg 04/12/20 04:29 Zofran Injection IVPUSH Q6H PRN NAUSEA Pantoprazole Sodium 40 mg 04/17/20 14:00 04/18/20 09:29 Protonix Iv IVPUSH 40 mg BID ERIKA Administration Impression 1. perforated duodenal ulcer 2. polysubstance use 3. npo for 1 week 4. s/p surgery for ruptured duodenal ulcer 5. thrombocytosis Plan - pt tolerating diet - pt off of tpn - can cont fluids for now - monitor platelets
--- NOTE | 2020-04-18 13:52 | PN ---
Progress Note, Physician History of Present Illness: stable no new issues - Objective Vital Signs: Vital Signs Temperature 98.0 F 04/18/20 09:58 Pulse Rate 95 H 04/18/20 09:58 Respiratory Rate 19 04/18/20 09:58 Blood Pressure 132/72 04/18/20 09:58 O2 Sat by Pulse Oximetry (%) 97 04/18/20 09:58 Constitutional: Yes: No Distress, Calm Cardiovascular: Yes: Regular Rate and Rhythm Respiratory: Yes: Regular, CTA Bilaterally Gastrointestinal: Yes: Normal Bowel Sounds, Soft Musculoskeletal: Yes: WNL Extremities: Yes: WNL Neurological: Yes: Alert, Oriented Psychiatric: Yes: Alert, Oriented Labs: CBC, BMP 04/18/20 06:47 04/18/20 06:47 INR, PTT INR 1.62 (0.83-1.09) H 04/09/20 09:00 Assessment/Plan Problem List - Problems (1) Pneumoperitoneum Code(s): K66.8 - OTHER SPECIFIED DISORDERS OF PERITONEUM (2) Cocaine abuse Code(s): F14.10 - COCAINE ABUSE, UNCOMPLICATED (3) Hydronephrosis Code(s): N13.30 - UNSPECIFIED HYDRONEPHROSIS (4) Leukocytosis Code(s): D72.829 - ELEVATED WHITE BLOOD CELL COUNT, UNSPECIFIED (5) Leukocytosis Code(s): D72.829 - ELEVATED WHITE BLOOD CELL COUNT, UNSPECIFIED (6) Marijuana abuse Code(s): F12.10 - CANNABIS ABUSE, UNCOMPLICATED (7) Opiate dependence Code(s): F11.20 - OPIOID DEPENDENCE, UNCOMPLICATED Assessment/Plan POD # Exploratory laparotomy, vern patch of perforated ulcer, drainage of ascites, lavage due to a perforated ulcer at anterior pylorus/duodenal bulb Leukocytosis Polysubstance Use -plan continue current mgmt rest as per the team
== END 2020-04-18 13:51 | disposition home or self-care (01) | DRG 223 ==
LOC: JER 08:00 → JERBED 11:55 → JICU 20:53 → J6S 04-12 02:05
PROVIDERS: ADMIT Internal Medicine; ATTEND Nurse Practitioner Family
PROC: 0W9G0ZX Drainage of Peritoneal Cavity, Open Approach, Diagnostic (ICD-10-PCS; 2020-04-09)
PROC: 0D9670Z Drainage of Stomach with Drainage Device, Via Natural or Artificial Opening (ICD-10-PCS; 2020-04-09)
PROC: 0DU907Z Supplement Duodenum with Autologous Tissue Substitute, Open Approach (ICD-10-PCS; principal; 2020-04-09 16:00)
PROC: 05HM33Z Insertion of Infusion Device into Right Internal Jugular Vein, Percutaneous Approach (ICD-10-PCS; 2020-04-11)
PROC: B543ZZA Ultrasonography of Right Jugular Veins, Guidance (ICD-10-PCS; 2020-04-11)
DX: K26.5 Chronic or unspecified duodenal ulcer with perforation (principal); D72.829 Elevated white blood cell count, unspecified; F14.188 Cocaine abuse with other cocaine-induced disorder; K43.9 Ventral hernia without obstruction or gangrene; F12.10 Cannabis abuse, uncomplicated; I49.3 Ventricular premature depolarization; Z91.89 Other specified personal risk factors, not elsewhere classified; K66.8 Other specified disorders of peritoneum; K55.059 Acute (reversible) ischemia of intestine, part and extent unspecified; R18.8 Other ascites; N13.30 Unspecified hydronephrosis; F11.20 Opioid dependence, uncomplicated; D47.3 Essential (hemorrhagic) thrombocythemia; F17.210 Nicotine dependence, cigarettes, uncomplicated
CPT/HCPCS: 36415; 71045-TC-FY; 74176-TC; 80048; 80053; 80061; 80076; 80307; 81003; 82550; 82746; 82962; 83605; 83690; 83721; 83735; 84100; 84484; 84630; 85025; 85027; 85610; 85730; 86850; 86900; 86901; 87040; 87070; 87075; 87077; 87205; 94760; 99285-25; J0131; U0003